=== PATIENT | female | born 1930 | race African-American/Black ===

== ENCOUNTER 2016-11-28 12:44 | Emergency (ER) | payer MEDICARE ==
[~2016-11-28] VITALS: Ht 165.1 cm; Wt 104.8 kg
[~2016-11-28 12:44] MED LIST: ASPI-482 PO; ATOR40TA59 PO; BUDE10.2 IH; CHLO1CAP PO; CHLO25CA9 PO; CITA10TA4 PO; CLOP75TA PO; CRESTOR20 MG PO; DICY20TA3 PO; DOCU-27 PO; DOCU100C5 PO; FURO20TA3 PO; IBUP-1060 PO; MELO-156 PO; MULT1TAB52 PO; POLY17PO5 PO; POLY1GRA MC; POTA20IV IV; POTA20TA12 PO; TRAM50TA PO
[2016-11-28 14:35] LABS: BASO # 0.1 x10^3/uL (0.0-0.2); BASO % 1 % (0-3); EOS % 2 % (0-3); HEMATOCRIT 43.1 % (36.0-47.0); HEMOGLOBIN 13.8 g/dL (12.0-15.5); LYMPH # 1.9 x10^3/uL (1.0-4.8); LYMPH % 23 % (24-48); MEAN CORPUSCULAR HEMOGLOBIN 28 pg (25-35); MEAN CORPUSCULAR HGB CONC 32 g/dL (31-37); MEAN CORPUSCULAR VOLUME 89 fL (79-100); MONO % 7 % (0-9); NEUT % 67 % (31-73); PLATELET COUNT 171 x10^3/uL (140-400); RED BLOOD COUNT 4.85 x10^6/uL (3.50-5.40); RED CELL DISTRIBUTION WIDTH 15.5 % (11.5-14.5)
[2016-11-28 14:50] LABS: CALCIUM 8.9 mg/dL (8.5-10.1); CREATININE 1.2 mg/dL (0.6-1.0); GFR 51.8; POTASSIUM 4.2 mmol/L (3.5-5.1)
--- NOTE | 2016-11-28 14:56 | RAD ---
Portable chest, 11/28/2016: History: Cough Comparison is made to a study from 04/01/2016. The heart size and pulmonary vascularity are normal. The lungs are clear. There is no evidence of pleural fluid. Moderate spurring is present in the spine. IMPRESSION: No acute cardiopulmonary abnormality is detected.
--- NOTE | 2016-11-28 14:58 | EKG ---
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 RI6.01 Unconfirmed report Electronically Signed On 12-05-2016 10:35:12 BLEACH CHLORINATOR by Candelario Cheek
--- NOTE | 2016-11-28 15:04 | PHYS DOC ---
Past Medical History Past Medical History: Anxiety, Arthritis, COPD, High Cholesterol, [place] Additional Past Medical Histor: HOME 02 Past Surgical History: Angioplasty, Hysterectomy, Other Additional Past Surgical Histo: CARDIAC CATH. 4 heart stents Alcohol Use: None Drug Use: None Adult General Chief Complaint Chief Complaint: WEAKNESS/GENERALIZED HPI HPI Patient is a 86 year old female who presents with for evaluation of generalized fatigue and concern of possible pneumonia. States that she has been dealing with cough, runny nose, body aches, and generalized fatigue for the past 2-3 weeks. She has been seen by her primary care doctor and received IM steroid and is currently taking azithromycin for her symptoms. She states she has been able to eat and drink without emesis, has slightly loose stools without lester diarrhea. She denies abdominal pain, chest pain, dyspnea, measured fever, nausea, dysuria. Review of Systems Review of Systems Constitutional: Denies measured fever [] Eyes: Denies change in visual acuity, redness, or eye pain [] HENT: Denies nasal congestion or sore throat [] Respiratory: Denies shortness of breath [] Cardiovascular: No additional information not addressed in HPI [] GI: Denies abdominal pain, nausea, vomiting, bloody stools or diarrhea [] : Denies dysuria or hematuria [] Musculoskeletal: Denies back pain or joint pain [] Integument: Denies rash or skin lesions [] Neurologic: Denies headache, focal weakness or sensory changes [] Endocrine: Denies polyuria or polydipsia [] Allergies Allergies Allergies Coded Allergies Type Severity Reaction Last Updated Verified oxycodone Allergy Intermediate 02/25/15 Yes Physical Exam Physical Exam Constitutional: Well developed, well nourished, no acute distress, non-toxic appearance. [] HENT: Normocephalic, atraumatic, bilateral external ears normal, oropharynx moist, no oral exudates, nose normal. [] Eyes: PERRLA, EOMI, conjunctiva normal, no discharge. [] Neck: Normal range of motion, no tenderness, supple, no stridor. [] Cardiovascular:Heart rate regular rhythm [] Lungs & Thorax: Bilateral breath sounds clear to auscultation [] Abdomen: Bowel sounds normal, soft, no tenderness. [] Skin: Warm, dry, no erythema, no rash. [] Back: No tenderness, no CVA tenderness. [] Extremities: No tenderness, ROM intact, no edema. [] Neurologic: Alert and oriented X 3, normal motor function, normal sensory function, no focal deficits noted. [] Psychologic: Affect normal, judgement normal, mood normal. [] Current Patient Data Vital Signs Vital Signs Date Time Temp Pulse Resp B/P Pulse Ox O2 Delivery O2 Flow Rate FiO2 11/28/16 15:38 63 20 109/63 95 Room Air 11/28/16 13:41 98.0 1 98.0 Lab Values Laboratory Tests Test 11/28/16 14:05 11/28/16 14:47 White Blood Count 8.0x10^3/uL (4.0-11.0) Red Blood Count 4.85x10^6/uL (3.50-5.40) Hemoglobin 13.8g/dL (12.0-15.5) Hematocrit 43.1% (36.0-47.0) Mean Corpuscular Volume 89fL (79-100) Mean Corpuscular Hemoglobin 28pg (25-35) Mean Corpuscular Hemoglobin Concent 32g/dL (31-37) Red Cell Distribution Width 15.5% (11.5-14.5) H Platelet Count 171x10^3/uL (140-400) Neutrophils (%) (Auto) 67% (31-73) Lymphocytes (%) (Auto) 23% (24-48) L Monocytes (%) (Auto) 7% (0-9) Eosinophils (%) (Auto) 2% (0-3) Basophils (%) (Auto) 1% (0-3) Neutrophils # (Auto) 5.4x10^3uL (1.8-7.7) Lymphocytes # (Auto) 1.9x10^3/uL (1.0-4.8) Monocytes # (Auto) 0.6x10^3/uL (0.0-1.1) Eosinophils # (Auto) 0.1x10^3/uL (0.0-0.7) Basophils # (Auto) 0.1x10^3/uL (0.0-0.2) Sodium Level 145mmol/L (136-145) Potassium Level 4.2mmol/L (3.5-5.1) Chloride Level 107mmol/L (98-107) Carbon Dioxide Level 30mmol/L (21-32) Anion Gap 8 (6-14) Blood Urea Nitrogen 24mg/dL (7-20) H Creatinine 1.2mg/dL (0.6-1.0) H Estimated GFR (Cockcroft-Gault) 51.8 Glucose Level 102mg/dL (70-99) H Calcium Level 8.9mg/dL (8.5-10.1) Urine Color K[place] Urine Clarity Clear Urine pH 5.5 Urine Specific [place] >=1.030 Urine Protein Negativemg/dL (NEG-TRACE) Urine Glucose (UA) Negativemg/dL (NEG) Urine Ketones (Stick) Tracemg/dL (NEG) Urine Blood Negative (NEG) Urine Nitrite Negative (NEG) Urine Bilirubin Small (NEG) Urine Urobilinogen Dipstick 0.2mg/dL (0.2 mg/dL) Urine Leukocyte Esterase Small (NEG) Urine RBC 0/HPF (0-2) Urine WBC 1-4/HPF (0-4) Urine Squamous Epithelial Cells Occ/LPF Urine Bacteria 0/HPF (0-FEW) Urine Mucus Slight/LPF Laboratory Tests 11/28/16 14:05 Laboratory Tests 11/28/16 14:05 Microbiology 11/28/16 Urine Culture - Preliminary, Resulted 11/28/16 Urine Culture Result 1 (KALEN) - Preliminary, Resulted EKG EKG EKG as interpreted by me as normal sinus rhythm, rate 64, no ST-T changes, normal intervals, no ectopy Radiology/Procedures Radiology/Procedures Chest xray as interpreted by me with no acute cardiopulmonary disease process Course & Med Decision Making Course & Med Decision Making Pertinent Labs and Imaging studies reviewed. (See chart for details) Workup is unremarkable. She feels better knowing she does not have pneumonia and wants to go home. Return precautions given. She and understand and agree with plan. Dragon Disclaimer Dragon Disclaimer This electronic medical record was generated, in whole or in part, using a voice recognition dictation system. Departure Departure Impression: Primary Impression: Upper respiratory infection Disposition: HOME, SELF-CARE Condition: STABLE Referrals: BACILIO HERNANDEZ MD (PCP) Patient Instructions: Upper Respiratory Infection, Adult, [id number] Additional Instructions: Continue your current medications. Follow-up with your primary care doctor within one week. Return for any concerns. Problem Qualifiers Primary Impression: Upper respiratory infection URI type: unspecified URI Qualified Code: J06.9 - Acute upper respiratory infection, unspecified Fran TRINH MD Nov 28, 2016 15:04
[2016-11-28 15:17] LABS: BILIRUBIN,URINE SMALL (NEG); GLUCOSE,URINE NEGATIVE (NEG); NITRITE,URINE NEGATIVE (NEG); PH,URINE 5.5; PROTEIN,URINE NEGATIVE (NEG-TRACE); UROBILINOGEN,URINE 0.2 mg/dL (0.2 mg/dL)
[2016-11-28 15:38] VITALS: BP 109/63
[2016-11-28 15:52] LABS: BACTERIA,URINE 0 /HPF (0-FEW); RBC,URINE 0 /HPF (0-2); SQUAMOUS EPITHELIAL CELL,UR OCC /LPF
== END 2016-11-28 16:53 | disposition home or self-care (01) ==
LOC: ER 12:44
DX: J06.9 Acute upper respiratory infection, unspecified (principal); F41.9 Anxiety disorder, unspecified; M19.90 Unspecified osteoarthritis, unspecified site; J44.9 Chronic obstructive pulmonary disease, unspecified; E78.00 Pure hypercholesterolemia, unspecified; I25.2 Old myocardial infarction; Z95.5 Presence of coronary angioplasty implant and graft; Z88.5 Allergy status to narcotic agent
CPT/HCPCS: 36415; 71010; 80048; 81001; 85027; 87086; 87186; 93005; 99285-25

== ENCOUNTER 2016-12-09 18:42 | Inpatient (IN) | payer MEDICARE ==
[~2016-12-09] VITALS: Ht 165.1 cm; Wt 105.2 kg
[2016-12-09] MEDS ORDERED: FENTANYL PF 100 MCG/2 ML VIAL. IV PRN (19:15)
--- NOTE | 2016-12-09 19:39 | PHYS DOC ---
Past Medical History Past Medical History: Anxiety, Arthritis, COPD, High Cholesterol, [place] Additional Past Medical Histor: HOME 02 Past Surgical History: Angioplasty, Hysterectomy, Other Additional Past Surgical Histo: CARDIAC CATH. 4 heart stents Alcohol Use: None Drug Use: None Adult General Chief Complaint Chief Complaint: MECHANICAL FALL HPI HPI Patient is a 86 year old female who presents by EMS for severe mid and low back pain that is constant with intermittent spasms with mouth since trip and fall just prior to arrival. She tripped over her home oxygen tubing, falling backwards onto her back, and hitting the right posterior aspect of her head on a door frame. She denies headache, vision changes, dizziness, neck pain, chest pain, dyspnea, abdominal pain, loss of consciousness, numbness, tingling, weakness. She denies hip or extremity pain. Review of Systems Review of Systems Constitutional: Denies fever or chills [] Eyes: Denies change in visual acuity, redness, or eye pain [] HENT: Denies nasal congestion or sore throat [] Respiratory: Denies cough or shortness of breath [] Cardiovascular: No additional information not addressed in HPI [] GI: Denies abdominal pain, nausea, vomiting, bloody stools or diarrhea [] : Denies dysuria or hematuria [] Musculoskeletal: Denies joint pain [] Integument: Denies rash or skin lesions [] Neurologic: Denies headache, focal weakness or sensory changes [] Endocrine: Denies polyuria or polydipsia [] Current Medications Current Medications Current Medications Medications (Trade) Dose Ordered Sig/Mendy Start Time Stop Time Status Last Admin Dose Admin Fentanyl Citrate (Fentanyl 2ml Vial) 25 mcg PRN Q15MIN PRN 12/09/16 19:15 12/10/16 19:14 12/09/16 19:40 25 MCG Allergies Allergies Allergies Coded Allergies Type Severity Reaction Last Updated Verified oxycodone Allergy Intermediate 02/25/15 Yes Physical Exam Physical Exam Constitutional: Well developed, well nourished, no acute distress, non-toxic appearance. [] HENT: Normocephalic, atraumatic, bilateral external ears normal, oropharynx moist, no oral exudates, nose normal. No shook sign, hemotympanum, raccoon eyes [] Eyes: PERRLA, EOMI. [] Neck: Normal range of motion, no tenderness, supple. [] Cardiovascular:Heart rate regular rhythm, no murmur [] Lungs & Thorax: Bilateral breath sounds clear to auscultation [] Abdomen: Bowel sounds normal, soft, no tenderness. [] Skin: Warm, dry, no erythema, no rash. [] Back: No CVA tenderness. Has lower thoracic and lumbar midline spinal tenderness with bilateral paraspinal tenderness, no visual or palpable abnormality [] Extremities: No tenderness, ROM intact, no edema. [] Neurologic: Alert and oriented X 3, normal motor function, normal sensory function, no focal deficits noted. [] Psychologic: Affect normal, judgement normal, mood normal. [] Current Patient Data Vital Signs Vital Signs Date Time Temp Pulse Resp B/P Pulse Ox O2 Delivery O2 Flow Rate FiO2 12/09/16 20:25 66 19 129/70 98 Nasal Cannula 2 12/09/16 18:55 97.8 97.8 Lab Values Laboratory Tests Test 12/09/16 19:35 White Blood Count 12.0x10^3/uL (4.0-11.0) H Red Blood Count 4.66x10^6/uL (3.50-5.40) Hemoglobin 13.3g/dL (12.0-15.5) Hematocrit 41.6% (36.0-47.0) Mean Corpuscular Volume 89fL (79-100) Mean Corpuscular Hemoglobin 29pg (25-35) Mean Corpuscular Hemoglobin Concent 32g/dL (31-37) Red Cell Distribution Width 15.2% (11.5-14.5) H Platelet Count 154x10^3/uL (140-400) Neutrophils (%) (Auto) 72% (31-73) Lymphocytes (%) (Auto) 16% (24-48) L Monocytes (%) (Auto) 9% (0-9) Eosinophils (%) (Auto) 1% (0-3) Basophils (%) (Auto) 1% (0-3) Neutrophils # (Auto) 8.7x10^3uL (1.8-7.7) H Lymphocytes # (Auto) 2.0x10^3/uL (1.0-4.8) Monocytes # (Auto) 1.1x10^3/uL (0.0-1.1) Eosinophils # (Auto) 0.1x10^3/uL (0.0-0.7) Basophils # (Auto) 0.2x10^3/uL (0.0-0.2) Sodium Level 144mmol/L (136-145) Potassium Level 4.2mmol/L (3.5-5.1) Chloride Level 106mmol/L (98-107) Carbon Dioxide Level 29mmol/L (21-32) Anion Gap 9 (6-14) Blood Urea Nitrogen 29mg/dL (7-20) H Creatinine 1.2mg/dL (0.6-1.0) H Estimated GFR (Cockcroft-Gault) 51.8 Glucose Level 127mg/dL (70-99) H Calcium Level 8.7mg/dL (8.5-10.1) Laboratory Tests 12/09/16 19:35 Laboratory Tests 12/09/16 19:35 EKG EKG EKG as interpreted by me as normal sinus rhythm, rate 78, no ST-T changes, normal intervals, no ectopy Radiology/Procedures Radiology/Procedures Head and c-spine CT without contrast IMPRESSION: 1. No acute intracranial process. 2. No acute osseous injury involving the cervical spine. Electronically signed by: Katia Ortega (Dec 09, 2016 20:32:18) Thoracic and lumbar spine without contrast IMPRESSION: 1. No acute fracture or dislocation involving the thoracic or lumbar spine. 2. Incidental note of a 4 mm nodule in the right upper lobe, as well as an irregular subpleural opacity in the right lower lobe. Recommend follow-up CT, per Fleischner criteria. Electronically signed by: Katia Ortega (Dec 09, 2016 21:05:44) Course & Med Decision Making Course & Med Decision Making Pertinent Labs and Imaging studies reviewed. (See chart for details) Laboratory evaluation and imaging are unremarkable for acute process. She still has significant pain and is unable to ambulate under her own power. Will admit for pain control and PT. Discussed case with Dr. Guzman, who will admit. Dragon Disclaimer Dragon Disclaimer This electronic medical record was generated, in whole or in part, using a voice recognition dictation system. Departure Departure Impression: Primary Impression: Back pain Additional Impression: Concussion syndrome Disposition: 09 ADMITTED INPATIENT Condition: STABLE Referrals: BCAILIO HERNANDEZ MD (PCP) Problem Qualifiers Primary Impression: Back pain Back pain location: low back pain Chronicity: acute Back pain laterality: midline Sciatica presence: without sciatica Qualified Code: M54.5 - Low back pain Fran TRINH MD Dec 09, 2016 19:39
[2016-12-09 19:45] LABS: BASO # 0.2 x10^3/uL (0.0-0.2); BASO % 1 % (0-3); EOS % 1 % (0-3); HEMATOCRIT 41.6 % (36.0-47.0); HEMOGLOBIN 13.3 g/dL (12.0-15.5); LYMPH % 16 % (24-48); MEAN CORPUSCULAR HEMOGLOBIN 29 pg (25-35); MEAN CORPUSCULAR HGB CONC 32 g/dL (31-37); MEAN CORPUSCULAR VOLUME 89 fL (79-100); MONO % 9 % (0-9); NEUT % 72 % (31-73); PLATELET COUNT 154 x10^3/uL (140-400); RED BLOOD COUNT 4.66 x10^6/uL (3.50-5.40); RED CELL DISTRIBUTION WIDTH 15.2 % (11.5-14.5)
[2016-12-09 19:58] LABS: CALCIUM 8.7 mg/dL (8.5-10.1); CREATININE 1.2 mg/dL (0.6-1.0); GFR 51.8; POTASSIUM 4.2 mmol/L (3.5-5.1)
--- NOTE | 2016-12-09 20:33 | RAD ---
INDICATION: Tripped and fell hitting back of the head without loss of consciousness. COMPARISON: None TECHNIQUE: Axial, noncontrast CT images obtained through the head and cervical spine. Coronal and sagittal reformats are provided of the cervical spine. One or more of the following individualized dose reduction techniques were utilized for this examination: 1. Automated exposure control; 2. Adjustment of the mA and/or kV according to patient size; 3. Use of iterative reconstruction technique. FINDINGS: No acute intracranial process is identified, specifically no acute blood products, midline shift, mass effect or extra-axial fluid collections. Ventricles and sulci appear appropriate for patient's age. Basilar cisterns are maintained. The visualized paranasal sinuses are clear. Mastoid air cells are clear. No calvarial fracture is present. Overlying scalp is intact. No acute fracture or dislocation is seen within the cervical spine. The C1-C2 articulation is maintained. Normal cervical lordosis and alignment is maintained. The posterior elements are intact. Scattered degenerative changes are present. Visualized soft tissues of the neck demonstrate no acute finding. Calcified nodule seen within the left thyroid lobe. Visualized lung apices are clear. IMPRESSION: 1. No acute intracranial process. 2. No acute osseous injury involving the cervical spine. Electronically signed by: Katia Ortega (Dec 09, 2016 20:32:18)
--- NOTE | 2016-12-09 21:07 | RAD ---
INDICATION: 86-year-old female with severe back pain and muscle spasm following a fall backwards tonight. COMPARISON: None TECHNIQUE: Axial CT images obtained through the thoracic and lumbar spine without the use of intravenous contrast. Coronal and sagittal reformats are provided. One or more of the following individualized dose reduction techniques were utilized for this examination: 1. Automated exposure control; 2. Adjustment of the mA and/or kV according to patient size; 3. Use of iterative reconstruction technique. FINDINGS: No acute fracture or dislocation is seen involving the thoracic spine. Normal thoracic kyphosis and alignment is maintained. Scattered degenerative changes are present, with anterior osteophytes present. No acute fracture or dislocation is seen within the lumbar spine. Normal lumbar lordosis and alignment is maintained. Degenerative changes are present throughout, most prominent at the L4-L5 and L5-S1 levels as well as prominent facet arthropathy. There is minimal anterolisthesis of L4 on L5. Visualized lungs demonstrate no acute finding. A 4 mm nodule is seen within the right upper lobe. An irregular, subpleural patchy opacities present within the right lower lobe, nonspecific. Visualized intrathoracic and intra-abdominal structures demonstrate no acute finding. There is diffuse atherosclerotic calcification of the aorta. IMPRESSION: 1. No acute fracture or dislocation involving the thoracic or lumbar spine. 2. Incidental note of a 4 mm nodule in the right upper lobe, as well as an irregular subpleural opacity in the right lower lobe. Recommend follow-up CT, per Fleischner criteria. Electronically signed by: Katia Ortega (Dec 09, 2016 21:05:44)
--- NOTE | 2016-12-09 21:13 | EKG ---
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
--- NOTE | 2016-12-09 21:18 | ACF ---
Admission Forms Criteria BACK PAIN Clinical Indications for Admission to Inpatient Care (Place 'X' for any and all applicable criteria): Admission is indicated for ANY ONE of the following (1)(2)(3)(4)(5)(6): [X]I. Inpatient admission required rather than observation care (Also use Back Pain: Observation Care as appropriate) because of ANY ONE of the following [ ]a) Severe pain requiring acute inpatient management [ ]b) Immediate inpatient surgery [X]c) Other condition, treatment or monitoring requiring inpatient admission [ ]II. Spine fracture with significant damage or threat of damage to vertebral column or spinal cord [ ]III. Progressive or severe neurologic deficit [ ]IV. Suspected spinal infection (e.g., epidural abscess, vertebral osteomyelitis)(10) [ ]V. Suspected cause requires inpatient treatment (eg, aortic dissection) [ ]. Cauda equina syndrome as indicated by ANY ONE of the following (9): [ ]a) Bowel dysfunction [ ]b) Bladder dysfunction [ ]c) Saddle anesthesia [ ]d) Neurologic abnormality suggesting cauda equina impingement Extended stay beyond goal length of stay may be needed for (3)(25): [ ]a) Spinal cord compression from stenosis, disk, or tumor (8)(9) [ ]b) Traumatic or pathologic vertebral fracture (33) [ ]c) Vertebral infection(10) [ ]d) Severe pain that is difficult to control [ ]e) Older patients(65 years or older) The original [employer] content created by [employer] has been revised. The portions of the content which have been revised are identified through the use of italic text or in bold, and [facility] has neither reviewed nor approved the modified material. All other unmodified content is copyright [employer]. Please see references footnoted in the original [facility] edition 2016 Admission Criteria Met?: Yes EMELI NAVAS Dec 09, 2016 21:18
[2016-12-09] MEDS ORDERED: MORPHINE SULFATE 2 MG/ML DISP.SYRIN. IV PRN (21:30)
[2016-12-09] MEDS ORDERED: ACETAMINOPHEN 325 MG TABLET. PO PRN (21:30)
[2016-12-09] MEDS ORDERED: ONDANSETRON PF 4 MG/2 ML VIAL. IV PRN (21:30)
[2016-12-09 21:35] VITALS: BP 116/59
--- NOTE | 2016-12-09 22:28 | PDOC1 ---
History and Physical Date of Admission Date of Admission DATE: 12/09/16 TIME: 22:18 Identification/Chief Complaint Chief Complaint back pain Source Source: Chart review, Patient History of Present Illness History of Present Illness Ms. Hansen, is a 86 year old female came by ambulance, admitted from ER for severe mid and low back pain. Marked pain with movement, she cannot stand or walk or transfer, with intermittent spasms and constant pain 8/10 She tripped in her slippers over her oxygen cord at home. She takes 2 liters NC for CAD, CHF and DEON she strained her back, severe back pain and struck her head on the floor without loss of consiciousness. her is here with her. no prodrome, felt well today, noted slip, trip and fall without stumble Past Medical History Cardiovascular: CAD, HTN, [place], Hyperlipidemia, Other Pulmonary: COPD, Other CENTRAL NERVOUS SYSTEM: Other GI: GERD Heme/Onc: No pertinent hx Hepatobiliary: No pertinent hx Psych: Anxiety, Panic Musculoskeletal: Osteoarthritis, Other Rheumatologic: No pertinent hx Infectious disease: No pertinent hx Renal/: No pertinent hx Endocrine: No pertinent hx Past Surgical History Past Surgical History: Cataract Removal, Hysterectomy, Other Family History Family History: Diabetes, Hypertension Social History Smoke: No ALCOHOL: none Drugs: None Current Problem List Problem List Problems Medical Problems: (1) Back pain Status: Acute (2) Concussion syndrome Status: Acute Problems: Current Medications Current Medications Current Medications Fentanyl Citrate (Fentanyl 2ml Vial) 25 mcg PRN Q15MIN PRN IV PAIN GREATER THAN 3/10 Last administered on 12/09/16 19:40; Start 12/09/16 at 19:15; Stop at 19:14 Ondansetron HCl (Zofran) 4 mg PRN Q8HRS PRN IV NAUSEA/VOMITING; Start 12/09/16 at 21:30; Stop 12/10/16 at 21:29 Morphine Sulfate 2 mg PRN Q2HR PRN IV PAIN Last administered on 12/09/16 22:01 ; Start 12/09/16 at 21:30; Stop 12/10/16 at 21:29 Acetaminophen (Tylenol) 650 mg PRN Q4HRS PRN PO FEVER; Start 12/09/16 at 21:30 ; Stop 12/10/16 at 21:29 Active Scripts Active Reported Crestor (Rosuvastatin Calcium) 20 Mg Tablet 20 Mg PO HS Gave last night Take tonight Miralax (Polyethylene Glycol 3350) 17 Gm Powd.pack 1 Pkt PO DAILY Take as needed daily for constipation Librax Capsule (Chlordiazepoxide/Clidinium Br) 1 Each Capsule 25 Cap PO DAILY Gave this morning Take tomorrow Tramadol Hcl 50 Mg Tablet 50 Mg PO PRN Q6HRS PRN Take as needed for pain Citalopram Hbr (Citalopram Hydrobromide) 10 Mg Tablet 10 Mg PO DAILY Gave this morning Take tomorrow Dicyclomine Hcl 20 Mg Tablet 20 Mg PO TID Gave this morning Take this afternoon and tonight Docusate Sodium 100 Mg Capsule 100 Mg PO PRN QHS PRN Take as needed for constipation Potassium Chloride 20 Meq Tab.er.prt 20 Meq PO 3X/WEEK Gave dose on MondayApril 01 continue normal schedule Colace (Docusate Sodium) 100 Mg Capsule 1 Cap PO DAILY Aspir 81 (Aspirin) 81 Mg Tablet.dr 81 Mg PO DAILY Gave this morning Take tomorrow Allergies Allergies: Coded Allergies: oxycodone (Verified Allergy, Intermediate, 02/25/15) ROS General: No: Appetite, Chills, Fatigue, Malaise, Night Sweats, Other PSYCHOLOGICAL ROS: No: Anxiety, Behavioral Disorder, Concentration difficultie , Decreased libido, Depression, Disorientation, Hallucinations, Hostility, Irritablity, Memory difficulties, Mood Swings, Obsessive thoughts, Other, Physical abuse, Sexual abuse, Sleep disturbances, Suicidal ideation Eyes: No Blurry vision, No Decreased vision, No Double vision, No Dry eyes, No Excessive tearing, No Eye Pain, No Itchy Eyes, No Loss of vision, No Other, No Photophobia, No Scotomata, No Uses contacts, No Uses glasses HEENT: No: Epistaxis, Heacaches, Hearing change, Nasal congestion, Nasal discharge, Oral lesions, Other, Sinus pain, Sneezing, Snoring, Sore Throat, Tinnitus, Vertigo, Visual Changes, Vocal changes Respiratory: No: Cough, Hemoptysis, Orthopnea, Other, Pleuritic Pain, SOB with excertion, Shortness of breath, Sputum Changes, Stridor, Tachypnea, Wheezing Cardiovascular: No Chest Pain, No Edema, No Lt Headedness, No Orthopnea, No Other, No Palpitations, No Paroxysmal Noc. Dyspnea Gastrointestinal: No Abdominal Pain, No Constipation, No Diarrhea, No Hematochezia, No Melena, No Nausea, No Other, No Vomiting Genitourinary: No , No , No , No , No , No , No , No Discharge, No Dysuria, No Flank Pain, No Frequency, No Hematuria, No Incontinence, No Other, No Pain, No Retention, No Urgency Musculoskeletal: Yes Gait Disturbance, Yes Joint Pain, Yes Joint Stiffness, Yes Muscle Pain, Yes Muscular Weakness, Yes Pain In: (back) Neurological: Yes Gait Disturbance, No Behavorial Changes, No Bowel/Bladder ControlChng, No Confusion, No Dizziness, No Headaches, No Impaired Coord/balance, No Memory Loss, No Numbness/ Tingling, No Other, No Seizures, No Speech Problems, No Tremors, No Visual Changes, No Weakness Skin: No Acne, No Dry Skin, No Eczema, No Hair Changes, No Lumps, No Mole Changes, No Mottling, No Nail Changes, No Other, No Pruritus, No Rash, No Skin Lesion Changes Physical Exam Physical Exam pain to palpation over paraspinous process of lower back low thoracic and lumbar R> L pain with movement, better when lying on her right side General: Alert, Oriented X3, Cooperative, mild distress HEENT: Atraumatic, EOMI Lungs: Normal air movement Heart: no gallops, no murmurs Abdomen: Normal bowel sounds, Soft (obese) Rectal Exam: not examined Extremities: No clubbing, No cyanosis, No edema, Other Skin: No rashes, No significant lesion Neuro: Normal tone, Sensation intact Psych/Mental Status: Mood NL Vitals Vitals Vital Signs Date Time Temp Pulse Resp B/P Pulse Ox O2 Delivery O2 Flow Rate FiO2 12/09/16 22:01 16 96 Nasal Cannula 2.0 12/09/16 20:25 66 129/70 12/09/16 18:55 97.8 97.8 Labs Labs Laboratory Tests Test 12/09/16 19:35 White Blood Count 12.0x10^3/uL (4.0-11.0) Red Blood Count 4.66x10^6/uL (3.50-5.40) Hemoglobin 13.3g/dL (12.0-15.5) Hematocrit 41.6% (36.0-47.0) Mean Corpuscular Volume 89fL (79-100) Mean Corpuscular Hemoglobin 29pg (25-35) Mean Corpuscular Hemoglobin Concent 32g/dL (31-37) Red Cell Distribution Width 15.2% (11.5-14.5) Platelet Count 154x10^3/uL (140-400) Neutrophils (%) (Auto) 72% (31-73) Lymphocytes (%) (Auto) 16% (24-48) Monocytes (%) (Auto) 9% (0-9) Eosinophils (%) (Auto) 1% (0-3) Basophils (%) (Auto) 1% (0-3) Neutrophils # (Auto) 8.7x10^3uL (1.8-7.7) Lymphocytes # (Auto) 2.0x10^3/uL (1.0-4.8) Monocytes # (Auto) 1.1x10^3/uL (0.0-1.1) Eosinophils # (Auto) 0.1x10^3/uL (0.0-0.7) Basophils # (Auto) 0.2x10^3/uL (0.0-0.2) Sodium Level 144mmol/L (136-145) Potassium Level 4.2mmol/L (3.5-5.1) Chloride Level 106mmol/L (98-107) Carbon Dioxide Level 29mmol/L (21-32) Anion Gap 9 (6-14) Blood Urea Nitrogen 29mg/dL (7-20) Creatinine 1.2mg/dL (0.6-1.0) Estimated GFR (Cockcroft-Gault) 51.8 Glucose Level 127mg/dL (70-99) Calcium Level 8.7mg/dL (8.5-10.1) Laboratory Tests Test 12/09/16 19:35 White Blood Count 12.0x10^3/uL (4.0-11.0) Red Blood Count 4.66x10^6/uL (3.50-5.40) Hemoglobin 13.3g/dL (12.0-15.5) Hematocrit 41.6% (36.0-47.0) Mean Corpuscular Volume 89fL (79-100) Mean Corpuscular Hemoglobin 29pg (25-35) Mean Corpuscular Hemoglobin Concent 32g/dL (31-37) Red Cell Distribution Width 15.2% (11.5-14.5) Platelet Count 154x10^3/uL (140-400) Neutrophils (%) (Auto) 72% (31-73) Lymphocytes (%) (Auto) 16% (24-48) Monocytes (%) (Auto) 9% (0-9) Eosinophils (%) (Auto) 1% (0-3) Basophils (%) (Auto) 1% (0-3) Neutrophils # (Auto) 8.7x10^3uL (1.8-7.7) Lymphocytes # (Auto) 2.0x10^3/uL (1.0-4.8) Monocytes # (Auto) 1.1x10^3/uL (0.0-1.1) Eosinophils # (Auto) 0.1x10^3/uL (0.0-0.7) Basophils # (Auto) 0.2x10^3/uL (0.0-0.2) Sodium Level 144mmol/L (136-145) Potassium Level 4.2mmol/L (3.5-5.1) Chloride Level 106mmol/L (98-107) Carbon Dioxide Level 29mmol/L (21-32) Anion Gap 9 (6-14) Blood Urea Nitrogen 29mg/dL (7-20) Creatinine 1.2mg/dL (0.6-1.0) Estimated GFR (Cockcroft-Gault) 51.8 Glucose Level 127mg/dL (70-99) Calcium Level 8.7mg/dL (8.5-10.1) VTE Prophylaxis Ordered VTE Prophylaxis Devices: Yes VTE Pharmacological Prophylaxi: No Assessment/Plan Assessment/Plan ACute back pain, unable to transfer or walk flexeril, percocet, IV morphine, Ice and lidocaine patch ordered minimal concussion, no symptoms of syndrome consult Physiatry to see in AM, Dr. Frye Dm2 CAD, follows with Dr. Jamal Dowd at [facility], s/p [place] X5 DEON, has seen Dr. Lee, wears 2 liters at baseline, she reports no intrinsic lung disease obesity BMI 38 CKD3 admit YUDY ENCARNACION MD Dec 09, 2016 22:28
[2016-12-09] MEDS ORDERED: MORPHINE SULFATE 4 MG/ML DISP.SYRIN. IV PRN (22:30)
[2016-12-09] MEDS ORDERED: DOCUSATE SODIUM 100 MG CAPSULE PO PRN (22:30)
[2016-12-09] MEDS ORDERED: OXYCODONE/APAP 5/325 TABLET. PO PRN (22:30)
[2016-12-09 23:00] VITALS: BP 97/50
[2016-12-09] MEDS: LIDOCAINE (700MG/PATCH) PATCH. TD SCH (23:55)
[2016-12-10 03:00] VITALS: BP 116/64
[2016-12-10 07:00] VITALS: BP 140/77
[2016-12-10] MEDS: LIDOCAINE (700MG/PATCH) PATCH. TD SCH (08:12)
[2016-12-10] MEDS: DOCUSATE SODIUM 100 MG CAPSULE PO SCH (08:12)
[2016-12-10] MEDS: DICYCLOMINE HCL 10 MG CAPSULE PO SCH ×3 (08:12→21:00)
[2016-12-10] MEDS: ASPIRIN ENTERIC COATED 81 MG TABLET.DR. PO SCH (08:13)
[2016-12-10] MEDS: CITALOPRAM 10 MG TABLET. PO SCH (08:13)
[2016-12-10] MEDS: POLYETHYLENE GLYCOL 3350 17 GM PACKET. PO SCH (08:17)
[2016-12-10] MEDS: CYCLOBENZAPRINE 10 MG TABLET. PO PRN ×2 (08:21→21:05)
[2016-12-10] MEDS: CHLORDIAZEPOXIDE/CLIDINIUM 5MG/2.5MG CAPSULE. PO SCH (10:54)
[2016-12-10 11:00] VITALS: BP 112/66
[2016-12-10] MEDS ORDERED: FLUCONAZOLE 100 MG TABLET. PO ONE (12:00)
[2016-12-10] MEDS ORDERED: methylPREDNISolone ACETATE 40 MG/ML VIAL. IM ONE ×2 (12:00)
[2016-12-10] MEDS ORDERED: BUPIVACAINE MPF 0.25% 10 ML VIAL. IJ ONE (12:00)
--- NOTE | 2016-12-10 14:37 | PDOC ---
PROGRESS NOTES Chief Complaint Chief Complaint ACute on chronic back pain post fall, unable to transfer or walk minimal concussion, no symptoms of syndrome Dm2 h/o CAD, follows with Dr. Jamal Dowd at [facility], s/p [place] X5 DEON 2 liters at baseline, she reports no intrinsic lung disease obesity BMI 38 CKD3 vaginitis with itchness no discharge right lung 4mm nodule on CT plan: 1. fu with dr. bolton, lumbar MRI pending 2. labs tmr 3. pain control ptot 4. fluconazole x1 pulm consult for lung right lobe 4mm nodule, fu likely History of Present Illness History of Present Illness STILL lower back pain with tenderness right leg mild weaker 4/5, numbness vaginal itchy, no discharge, 1st time, used some topic before Vitals Vitals Vital Signs Date Time Temp Pulse Resp B/P Pulse Ox O2 Delivery O2 Flow Rate FiO2 12/10/16 11:00 97.0 66 20 112/66 98 Nasal Cannula 2.0 97.0 Physical Exam General: Alert, Oriented X3, Cooperative, mild distress Heart: Regular rate, Normal S1 Abdomen: Normal bowel sounds, Soft (obese) Extremities: No clubbing, No cyanosis, No edema, Other Skin: No rashes, No significant lesion Labs LABS Laboratory Tests Test 12/09/16 19:35 White Blood Count 12.0x10^3/uL (4.0-11.0) Red Blood Count 4.66x10^6/uL (3.50-5.40) Hemoglobin 13.3g/dL (12.0-15.5) Hematocrit 41.6% (36.0-47.0) Mean Corpuscular Volume 89fL (79-100) Mean Corpuscular Hemoglobin 29pg (25-35) Mean Corpuscular Hemoglobin Concent 32g/dL (31-37) Red Cell Distribution Width 15.2% (11.5-14.5) Platelet Count 154x10^3/uL (140-400) Neutrophils (%) (Auto) 72% (31-73) Lymphocytes (%) (Auto) 16% (24-48) Monocytes (%) (Auto) 9% (0-9) Eosinophils (%) (Auto) 1% (0-3) Basophils (%) (Auto) 1% (0-3) Neutrophils # (Auto) 8.7x10^3uL (1.8-7.7) Lymphocytes # (Auto) 2.0x10^3/uL (1.0-4.8) Monocytes # (Auto) 1.1x10^3/uL (0.0-1.1) Eosinophils # (Auto) 0.1x10^3/uL (0.0-0.7) Basophils # (Auto) 0.2x10^3/uL (0.0-0.2) Sodium Level 144mmol/L (136-145) Potassium Level 4.2mmol/L (3.5-5.1) Chloride Level 106mmol/L (98-107) Carbon Dioxide Level 29mmol/L (21-32) Anion Gap 9 (6-14) Blood Urea Nitrogen 29mg/dL (7-20) Creatinine 1.2mg/dL (0.6-1.0) Estimated GFR (Cockcroft-Gault) 51.8 Glucose Level 127mg/dL (70-99) Calcium Level 8.7mg/dL (8.5-10.1) Review of Systems Review of Systems no fever, chills, sob or chest pain Assessment and Plan Assessmemt and Plan Problems Medical Problems: (1) Back pain Status: Acute (2) Concussion syndrome Status: Acute Problems: Comment Review of Relevant I have reviewed the following items sahil (where applicable) has been applied. Labs Laboratory Tests Test 12/09/16 19:35 White Blood Count 12.0x10^3/uL (4.0-11.0) Red Blood Count 4.66x10^6/uL (3.50-5.40) Hemoglobin 13.3g/dL (12.0-15.5) Hematocrit 41.6% (36.0-47.0) Mean Corpuscular Volume 89fL (79-100) Mean Corpuscular Hemoglobin 29pg (25-35) Mean Corpuscular Hemoglobin Concent 32g/dL (31-37) Red Cell Distribution Width 15.2% (11.5-14.5) Platelet Count 154x10^3/uL (140-400) Neutrophils (%) (Auto) 72% (31-73) Lymphocytes (%) (Auto) 16% (24-48) Monocytes (%) (Auto) 9% (0-9) Eosinophils (%) (Auto) 1% (0-3) Basophils (%) (Auto) 1% (0-3) Neutrophils # (Auto) 8.7x10^3uL (1.8-7.7) Lymphocytes # (Auto) 2.0x10^3/uL (1.0-4.8) Monocytes # (Auto) 1.1x10^3/uL (0.0-1.1) Eosinophils # (Auto) 0.1x10^3/uL (0.0-0.7) Basophils # (Auto) 0.2x10^3/uL (0.0-0.2) Sodium Level 144mmol/L (136-145) Potassium Level 4.2mmol/L (3.5-5.1) Chloride Level 106mmol/L (98-107) Carbon Dioxide Level 29mmol/L (21-32) Anion Gap 9 (6-14) Blood Urea Nitrogen 29mg/dL (7-20) Creatinine 1.2mg/dL (0.6-1.0) Estimated GFR (Cockcroft-Gault) 51.8 Glucose Level 127mg/dL (70-99) Calcium Level 8.7mg/dL (8.5-10.1) Laboratory Tests Test 12/09/16 19:35 White Blood Count 12.0x10^3/uL (4.0-11.0) Red Blood Count 4.66x10^6/uL (3.50-5.40) Hemoglobin 13.3g/dL (12.0-15.5) Hematocrit 41.6% (36.0-47.0) Mean Corpuscular Volume 89fL (79-100) Mean Corpuscular Hemoglobin 29pg (25-35) Mean Corpuscular Hemoglobin Concent 32g/dL (31-37) Red Cell Distribution Width 15.2% (11.5-14.5) Platelet Count 154x10^3/uL (140-400) Neutrophils (%) (Auto) 72% (31-73) Lymphocytes (%) (Auto) 16% (24-48) Monocytes (%) (Auto) 9% (0-9) Eosinophils (%) (Auto) 1% (0-3) Basophils (%) (Auto) 1% (0-3) Neutrophils # (Auto) 8.7x10^3uL (1.8-7.7) Lymphocytes # (Auto) 2.0x10^3/uL (1.0-4.8) Monocytes # (Auto) 1.1x10^3/uL (0.0-1.1) Eosinophils # (Auto) 0.1x10^3/uL (0.0-0.7) Basophils # (Auto) 0.2x10^3/uL (0.0-0.2) Sodium Level 144mmol/L (136-145) Potassium Level 4.2mmol/L (3.5-5.1) Chloride Level 106mmol/L (98-107) Carbon Dioxide Level 29mmol/L (21-32) Anion Gap 9 (6-14) Blood Urea Nitrogen 29mg/dL (7-20) Creatinine 1.2mg/dL (0.6-1.0) Estimated GFR (Cockcroft-Gault) 51.8 Glucose Level 127mg/dL (70-99) Calcium Level 8.7mg/dL (8.5-10.1) Medications Current Medications Fentanyl Citrate (Fentanyl 2ml Vial) 25 mcg PRN Q15MIN PRN IV PAIN GREATER THAN 3/10 Last administered on 12/09/16 19:40; Start 12/09/16 at 19:15; Stop at 19:14 Ondansetron HCl (Zofran) 4 mg PRN Q8HRS PRN IV NAUSEA/VOMITING; Start 12/09/16 at 21:30; Stop 12/10/16 at 21:29 Morphine Sulfate 2 mg PRN Q2HR PRN IV PAIN Last administered on 12/09/16 22:01 ; Start 12/09/16 at 21:30; Stop 12/09/16 at 22:22; Status DC Acetaminophen (Tylenol) 650 mg PRN Q4HRS PRN PO FEVER; Start 12/09/16 at 21:30 ; Stop 12/10/16 at 21:29 Aspirin (Ecotrin) 81 mg DAILY PO Last administered on 12/10/16 08:13; Start at 09:00 Chlordiazepoxide/ Clidinium (Librax) 1 cap DAILY PO Last administered on 10:54; Start 12/10/16 at 09:00 Citalopram Hydrobromide (Celexa) 10 mg DAILY PO Last administered on 12/10/16 08:13; Start 12/10/16 at 09:00 Docusate Sodium (Colace) 100 mg PRN QHS PRN PO CONSTIPATION; Start 12/09/16 at 22:30 Docusate Sodium (Colace) 100 mg DAILY PO Last administered on 12/10/16 08:12; Start 12/10/16 at 09:00 Polyethylene Glycol (miraLAX PACKET) 17 gm DAILY PO Last administered on 08:17; Start 12/10/16 at 09:00 Potassium Chloride (Klor-Con) 20 meq 3X/WEEK PO ; Start 12/12/16 at 09:00 Dicyclomine HCl (Bentyl) 20 mg TID PO Last administered on 12/10/16 08:12; Start 12/10/16 at 09:00 Atorvastatin Calcium (Lipitor) 80 mg HS PO FOR CHOLESTEROL; Start 12/10/16 at 21 :00 Morphine Sulfate 4 mg PRN Q2HR PRN IV PAIN Last administered on 12/10/16 03:54 ; Start 12/09/16 at 22:30 Oxycodone/ Acetaminophen (Percocet 5/325) 1 tab PRN Q4HRS PRN PO PAIN Last administered on 12/10/16 08:16; Start 12/09/16 at 22:30; Stop 12/10/16 at 13:09 ; Status DC Lidocaine (Lidoderm) 1 patch DAILY TD Last administered on 12/10/16 08:12; Start 12/09/16 at 22:45 Cyclobenzaprine HCl (Flexeril) 10 mg PRN Q6HRS PRN PO MUSCLE SPASMS Last administered on 12/10/16 08:21; Start 12/09/16 at 22:30 Fluconazole (Diflucan) 150 mg 1X ONCE PO Last administered on 12/10/16 12:11 ; Start 12/10/16 at 12:00; Stop 12/10/16 at 12:01; Status DC Methylprednisolone Acetate (Depo-Medrol 40mg Vial) 40 mg 1X ONCE IM Last administered on 12/10/16 12:12; Start 12/10/16 at 12:00; Stop 12/10/16 at 12:01 ; Status DC Methylprednisolone Acetate (Depo-Medrol 40mg Vial) 40 mg 1X ONCE IM ; Start 08/18 at 12:00; Stop 12/10/16 at 12:01; Status DC Bupivacaine HCl (Sensorcaine-Mpf 0.25%) 10 ml 1X ONCE IJ Last administered on 12/10/16t 12:14; Start 12/10/16 at 12:00; Stop 12/10/16 at 12:01; Status DC Acetaminophen/ Hydrocodone Bitart (Lortab 10/325) 1 tab PRN Q6HRS PRN PO PAIN; Start 12/10/16 at 11:30 Active Scripts Active Reported Crestor (Rosuvastatin Calcium) 20 Mg Tablet 20 Mg PO HS Gave last night Take tonight Miralax (Polyethylene Glycol 3350) 17 Gm Powd.pack 1 Pkt PO DAILY Take as needed daily for constipation Librax Capsule (Chlordiazepoxide/Clidinium Br) 1 Each Capsule 25 Cap PO DAILY Gave this morning Take tomorrow Tramadol Hcl 50 Mg Tablet 50 Mg PO PRN Q6HRS PRN Take as needed for pain Citalopram Hbr (Citalopram Hydrobromide) 10 Mg Tablet 10 Mg PO DAILY Gave this morning Take tomorrow Dicyclomine Hcl 20 Mg Tablet 20 Mg PO TID Gave this morning Take this afternoon and tonight Docusate Sodium 100 Mg Capsule 100 Mg PO PRN QHS PRN Take as needed for constipation Potassium Chloride 20 Meq Tab.er.prt 20 Meq PO 3X/WEEK Gave dose on MondayApril 01 continue normal schedule Colace (Docusate Sodium) 100 Mg Capsule 1 Cap PO DAILY Aspir 81 (Aspirin) 81 Mg Tablet.dr 81 Mg PO DAILY Gave this morning Take tomorrow Vitals/I & O Vital Sign - Last 24 Hours 12/09/16 12/09/16 12/09/16 12/09/16 18:55 19:16 19:40 19:46 Temp 97.8 97.8 Pulse 87 76 72 Resp 20 16 14 B/P 138/75 115/60 125/58 Pulse Ox 98 97 99 94 O2 Delivery Nasal Cannula Nasal Cannula Room Air Nasal Cannula O2 Flow Rate 2 2 2 12/09/16 12/09/16 12/09/16 12/09/16 20:25 21:35 22:00 22:01 Temp 97.7 97.7 Pulse 66 70 Resp 19 20 16 B/P 129/70 116/59 Pulse Ox 98 97 96 O2 Delivery Nasal Cannula Nasal Cannula Nasal Cannula O2 Flow Rate 2 2.0 2.0 12/09/16 12/10/16 12/10/16 12/10/16 23:00 03:00 03:54 07:00 Temp 98.5 97.5 97.9 98.5 97.5 97.9 Pulse 63 69 80 Resp 18 18 18 24 B/P 97/50 116/64 140/77 Pulse Ox 97 95 100 O2 Delivery Nasal Cannula Nasal Cannula O2 Flow Rate 2.0 2.0 12/10/16 12/10/16 08:00 11:00 Temp 97.0 97.0 Pulse 66 Resp 20 B/P 112/66 Pulse Ox 98 O2 Delivery Nasal Cannula Nasal Cannula O2 Flow Rate 2.0 2.0 Intake and Output 12/09/16 12/09/16 12/10/16 15:00 23:00 07:00 Intake Total 120 ml 100 ml Output Total 250 ml 200 ml Balance -130 ml -100 ml BABAK WILLIAMSON MD Dec 10, 2016 14:37
[2016-12-10] MEDS ORDERED: ACETAMINOPHEN 325 MG TABLET. PO PRN (14:45)
[2016-12-10] MEDS ORDERED: ONDANSETRON PF 4 MG/2 ML VIAL. IV PRN (14:45)
--- NOTE | 2016-12-10 14:45 | RAD ---
Exam performed: MRI lumbar spine without contrast. History: Low back pain, spasms and back stiffness for 3 weeks status post fall. Date of service: 12/10/16. Comparison: None available Technique: Real-time grayscale imaging of the routine multiplanar and multiple sequence imaging of the lumbar spine is performed and images are obtained. Findings: The bulb of the study, the last separate vertebral body is designated L5. Using this number scheme, there is grade 1 anterolisthesis of L4 over L5, the remainder alignment appears preserved. The vertebral body heights are maintained. Narrowing and desiccation of several intervertebral disc levels. The conus medullaris tapers normally and terminates at L1 level. No abnormal vertebral body marrow signal abnormality is seen. Findings arising imaging at base intervertebral disc levels are as follows. L1/2 is normal L2/3 demonstrates broad-based posterior disc bulge. Mild bilateral facet hypertrophic changes and ligamentum flavum hypertrophy is seen. There is no central canal stenosis. Mild right neural foramen narrowing is identified. L3/4 demonstrates a broad-based posterior disc bulge and bilateral facet hypertrophic changes. There is mild central canal stenosis. Mild bilateral neural foramen narrowing is seen. L4/5 demonstrates a broad-based posterior disc bulge. Right greater than left facet hypertrophic changes are noted. There is moderate central canal stenosis. Moderate to severe right neural foramen stenosis is seen. L5/S1 is normal. The visualized retroperitoneal structures demonstrate no definite abnormality. The aorta is of normal caliber. Visualized kidneys are normal. Impression: Grade 1 anterolisthesis of L4 over L5 with multilevel disc degenerative changes as outlined above. Please see discussion above
[2016-12-10 15:00] VITALS: BP 112/53
[2016-12-10 19:00] VITALS: BP 137/76
[2016-12-10] MEDS: HYDROCODONE/APAP 10/325 TABLET. PO PRN (19:58)
[2016-12-10] MEDS: ATORVASTATIN CALCIUM 40 MG TABLET. PO SCH (21:00)
[2016-12-10 22:33] VITALS: BP 83/41
--- NOTE | 2016-12-10 23:26 | CONS ---
DATE OF CONSULTATION: 12/10/2016 ATTENDING PHYSICIAN: Dr. Guzman. The patient was seen at the request of Dr. Guzman for rehab evaluation about her back pain. HISTORY OF PRESENT ILLNESS: This is an 86-year-old female admitted through the Emergency Room with severe mid and lower back pain, difficulty to stand and walk or transfer with intermittent muscle spasm and constant pain on a scale of 0-10 at 8 after she tripped on her slippers over oxygen cord at home. The patient with chronic lower back pain, being followed by Dr. Price, her family physician and she uses BiPAP at nighttime and oxygen by nasal cannula while she is awake. Past medical history also includes coronary artery disease, congestive heart failure, and obstructive sleep apnea. The patient also admits pain in her knees for which she receives cortisone injections. The patient had her knees injected about 2 months ago last time and she denies any significant pain in her knees at present time. PAST MEDICAL HISTORY: Also includes hyperlipidemia, previous myocardial infarction, chronic obstructive pulmonary disease, gastroesophageal reflux disease, anxiety, panic episodes. ALLERGIES: SHE IS KNOWN ALLERGIC TO OXYCODONE, is not real allergy, look like she received in the Emergency Room that made her somewhat confused. MEDICATIONS: She usually takes ibuprofen 800 mg on an as needed basis for pain maybe once a day. FAMILY HISTORY: Diabetes mellitus and hypertension. The patient is status post cataract surgery and hysterectomy. The patient lives alone, had no stairs for her to manage. She usually uses a walker to get around, sometimes she uses cane. PHYSICAL EXAMINATION: Today revealed an elderly female, she is alert, oriented to time, place, person and circumstance and follows commands appropriately. She had painful limited movements of thoracolumbar spine with tenderness to palpation over thoracic and lumbar paraspinal muscles extending over to sacroiliac joint area, right side more than left side, and straight leg raising test is negative bilaterally. She had 5/5 grade muscle strength in her extremities, tenderness to palpation over medial aspect of her right knee crepitus on range of motion of both knee joints. She is protecting her knee on the right side to some extent. The patient had slightly decreased touch and pinprick sensation over right median nerve distribution in the hand and also over right lower extremity. Deep tendon reflexes are 1+ and symmetrical. The patient had pain free range of motion of both hip joints. She had mild degree of muscle atrophy involving thenar eminence muscles in both hands and positive Tinel sign over right median nerve at the wrist and also evidence of degenerative joint disease of both thumbs at carpometacarpal joints bilaterally. She requires some help with bed mobility and transfers. Once up, she can walk slowly with limping on her right foot to some extent using a roller or walker. ASSESSMENT: An elderly female with chronic lower back pain from degenerative disk disease and degenerative joint disease of lumbar vertebrae with right lumbar radiculitis with recent fall with superimposed thoracic and lumbar sprain, also degenerative joint disease of both knees with some pain, right knee, with associated tendinitis right knee and degenerative changes of both thumbs carpometacarpal joints with associated probable carpal tunnel syndrome on the right side. The patient with obesity, hypertension, hyperlipidemia, coronary artery disease, congestive heart failure, previous myocardial infarction, chronic obstructive pulmonary disease and obstructive sleep apnea, on BiPAP or CPAP at nighttime and also uses oxygen by nasal cannula while she is awake. RECOMMENDATIONS: At her request, I have injected painful right sacroiliac joint using Marcaine and Depo-Medrol solution under aseptic skin technique after skin prep using alcohol swab and she tolerated the procedure satisfactorily without any side effects to try her with hydrocodone for pain and to get her lumbar corset and also obtain MRI scan of her lumbar vertebrae to make sure she does not have any significant lumbar spinal stenosis. Dr. Guzman, I appreciate asking me to participate in care of this interesting patient. I will be glad to follow her with you as needed for her rehabilitation. IMAN MICHAELS MD DR: RONDA/raimundo JOB#: [id number] / [id number] BACILIO Roca MD
[2016-12-11 03:00] VITALS: BP 106/51
[2016-12-11 05:43] LABS: BASO # 0.1 x10^3/uL (0.0-0.2); BASO % 1 % (0-3); EOS % 1 % (0-3); HEMATOCRIT 43.5 % (36.0-47.0); HEMOGLOBIN 13.8 g/dL (12.0-15.5); LYMPH % 18 % (24-48); MEAN CORPUSCULAR HEMOGLOBIN 28 pg (25-35); MEAN CORPUSCULAR HGB CONC 32 g/dL (31-37); MEAN CORPUSCULAR VOLUME 90 fL (79-100); MONO % 6 % (0-9); NEUT % 74 % (31-73); PLATELET COUNT 154 x10^3/uL (140-400); RED BLOOD COUNT 4.86 x10^6/uL (3.50-5.40); RED CELL DISTRIBUTION WIDTH 15.3 % (11.5-14.5); WHITE BLOOD COUNT 11.1 x10^3/uL (4.0-11.0)
[2016-12-11 06:02] LABS: CALCIUM 9.1 mg/dL (8.5-10.1); CREATININE 1.1 mg/dL (0.6-1.0); GFR 57.3; POTASSIUM 4.9 mmol/L (3.5-5.1)
[2016-12-11 07:00] VITALS: BP 134/56
[2016-12-11] MEDS: DICYCLOMINE HCL 10 MG CAPSULE PO SCH ×3 (08:16→21:20)
[2016-12-11] MEDS: CHLORDIAZEPOXIDE/CLIDINIUM 5MG/2.5MG CAPSULE. PO SCH (08:16)
[2016-12-11] MEDS: DOCUSATE SODIUM 100 MG CAPSULE PO SCH (08:16)
[2016-12-11] MEDS: CITALOPRAM 10 MG TABLET. PO SCH (08:16)
[2016-12-11] MEDS: POLYETHYLENE GLYCOL 3350 17 GM PACKET. PO SCH (08:16)
[2016-12-11] MEDS: ASPIRIN ENTERIC COATED 81 MG TABLET.DR. PO SCH (08:16)
[2016-12-11] MEDS: LIDOCAINE (700MG/PATCH) PATCH. TD SCH (08:17)
--- NOTE | 2016-12-11 09:33 | PDOC ---
Provider Note Provider Note dictated 4 mm lung nodule. 50 lb wt loss in one year. will need full ct chest,abd/pelvis f/u nodule in 4-6 months LUIS FERNANDO SWAIN MD Dec 11, 2016 09:33
--- NOTE | 2016-12-11 10:20 | CONS ---
DATE OF CONSULTATION: ATTENDING PHYSICIAN: Dr. Melita Guzman. REASON FOR CONSULTATION: Lung nodule. HISTORY OF PRESENT ILLNESS: The patient is an 86-year-old female who has no significant history of tobacco use. She is on home oxygen 24 hours 2 liters. She presented to the hospital with complaint of mid and low back pain. The patient underwent imaging study and thoracic spine CT was performed which showed an incidental finding of a 4-mm nodule in the right upper lobe. There was also subpleural irregular opacity in the right lower lobe. The patient has no significant history of tobacco use. However, she does admit to weight loss of about 50 pounds in the past 1 year. She recalls her last mammogram was normal. No GI symptoms. Consultation was requested for further evaluation and management. PAST MEDICAL HISTORY: History of coronary artery disease, hypertension, [place], hyperlipidemia, chronic respiratory failure, osteoarthritis, and obesity. PAST SURGICAL HISTORY: Cataract removal and hysterectomy. FAMILY HISTORY: Diabetes and hypertension. SOCIAL HISTORY: Nonsmoker. ALLERGIES: OXYCODONE. MEDICATIONS: Reviewed as listed in the MRAD. REVIEW OF SYSTEMS: Twelve-point system obtained, pertinent positives discussed in history of present illness, otherwise noncontributory. All systems that were negative were reviewed as well. PHYSICAL EXAMINATION: VITAL SIGNS: Stable, afebrile, and pulse oximetry 98% on room air. NECK: Supple. LUNGS: Clear. CARDIOVASCULAR: Regular rate and rhythm. ABDOMEN: Soft and obese. EXTREMITIES: With no pitting edema. LABORATORY DATA: Reviewed. White cell count 11.1, hemoglobin 13.8, and platelets are 154. BUN is 25, creatinine 1.1. IMPRESSION: 1. A 4-mm nodule seen in the right upper lobe and a tiny subpleural irregular opacity in the right lower lobe. This was seen on a thoracic spine CT. She has no tobacco history and as such, has very minimal risk of lung cancer. However, she has approximately 50-pound weight loss in the past one year, and a metastatic workup would be reasonable. I would obtain a full CT chest, abdomen, and pelvis. 2. Chronic respiratory failure, on home oxygen at 2 liters, being followed by my partner, Dr. Lee. 3. No significant history of tobacco use. RECOMMENDATIONS: 1. Obtain noncontrast CT chest, abdomen, and pelvis. 2. If there is no evidence of any metastatic disease, then she should have a followup CT chest in 4 to 6 months to make sure that the nodule is not increased in size. The patient is to follow with Dr. Lee in the office around that time. 3. Management of back pain per PCP. LUIS FERNANDO SWAIN MD DR: MO/raimundo JOB#: [id number] / [id number] SHIRLEY
[2016-12-11 11:00] VITALS: BP 119/57
[2016-12-11] MEDS ORDERED: IOHEXOL 240 MG/ML 50ML VIAL. PO ONE (11:15)
--- NOTE | 2016-12-11 13:30 | RAD ---
EXAM: CT OF THE CHEST, ABDOMEN AND PELVIS WITHOUT INTRAVENOUS CONTRAST. HISTORY: Weight loss. TECHNIQUE: Computed tomography of the chest, abdomen and pelvis was performed without intravenous contrast. COMPARISON: 09/30/2015. FINDINGS: Bone windows reveal no suspicious lesions. The right thyroid lobe is subtotally atrophic or surgically absent. There is rim calcified nodule in the left lobe of measuring 11 mm. This appears stable since 2015 and is likely benign. There are no pathologically enlarged mediastinal or axillary lymph nodes. Calcified mediastinal lymph nodes are likely secondary to old granulomatous disease. There is no pleural or pericardial effusion. The heart is not enlarged. There is a normal variant common origin of the left common carotid and brachiocephalic arteries. There are atherosclerotic calcifications of the coronary arteries. The main pulmonary artery measures 3.2 cm. There is a small hiatal hernia. Some of the previously noted pulmonary nodules posteriorly are smaller or have resolved. Most now appear to be scarlike represent small nodular infiltrates that are post inflammatory. The largest currently is adjacent to the pleura in the right lower lobe on image 30, measuring 7 mm. This was previously a larger region of subpleural consolidation. Interstitial opacities in the right costophrenic angle is stable to improved. There are multiple gallstones within the gallbladder. There is no pericholecystic inflammation. There are calcified granulomas in the liver and spleen. The adrenal glands, kidneys and pancreas are unremarkable without contrast. The uterus is surgically absent. There are changes of pelvic for relaxation. Left and sigmoid diverticulosis are moderate. The appendix is not inflamed. A small bowel hernia contains only fat. There is no obstruction. IMPRESSION: 1. No evidence of malignancy or clear cause for weight loss. 2. Scattered pulmonary nodules are mostly decreased since 09/30/2015 and are likely postinflammatory scarring. The largest measures 7 mm in the right lower lobe. This could be followed in 6-12 months if there is further concern. 3. Small hiatal hernia. 4. Cholelithiasis. 5. Small umbilical hernia containing only fat. 6. Pelvic floor relaxation. *One or more of the following individualized dose reduction techniques were utilized for this examination: 1. Automated exposure control. 2. Adjustment of the mA and/or kV according to patient size. 3. Use of iterative reconstruction technique.
--- NOTE | 2016-12-11 14:02 | PDOC ---
PROGRESS NOTES Chief Complaint Chief Complaint ACute on chronic back pain post fall, unable to transfer or walk minimal concussion, no symptoms of syndrome Dm2 h/o CAD, follows with Dr. Jamal Dowd at [facility], s/p AK X5 DEON 2 liters at baseline, she reports no intrinsic lung disease obesity BMI 38 CKD3 vaginitis with itchness no discharge right lung 7mm nodule on CT , fu as outpt plan: 1. fu with dr. bolton, lumbar MRI done 2. labs tmr 3. pain control ptot 4. fluconazole x1 pulm consult for lung right lobe 4mm nodule, fu as outpt dc tmr History of Present Illness History of Present Illness STILL lower back pain with tenderness right leg mild weaker 4/5, numbness vaginal itchy, no discharge, 1st time, used some topic before, resolved for now with 1 pill fluco Vitals Vitals Vital Signs Date Time Temp Pulse Resp B/P Pulse Ox O2 Delivery O2 Flow Rate FiO2 12/11/16 11:00 97.7 67 20 119/57 97 Room Air 97.7 12/11/16 08:00 1.0 Physical Exam General: Alert, Oriented X3, Cooperative, mild distress Heart: Regular rate, Normal S1 Abdomen: Normal bowel sounds, Soft (obese) Extremities: No clubbing, No cyanosis, No edema, Other Skin: No rashes, No significant lesion Labs LABS Laboratory Tests Test 12/11/16 05:10 White Blood Count 11.1x10^3/uL (4.0-11.0) Red Blood Count 4.86x10^6/uL (3.50-5.40) Hemoglobin 13.8g/dL (12.0-15.5) Hematocrit 43.5% (36.0-47.0) Mean Corpuscular Volume 90fL (79-100) Mean Corpuscular Hemoglobin 28pg (25-35) Mean Corpuscular Hemoglobin Concent 32g/dL (31-37) Red Cell Distribution Width 15.3% (11.5-14.5) Platelet Count 154x10^3/uL (140-400) Neutrophils (%) (Auto) 74% (31-73) Lymphocytes (%) (Auto) 18% (24-48) Monocytes (%) (Auto) 6% (0-9) Eosinophils (%) (Auto) 1% (0-3) Basophils (%) (Auto) 1% (0-3) Neutrophils # (Auto) 8.2x10^3uL (1.8-7.7) Lymphocytes # (Auto) 2.0x10^3/uL (1.0-4.8) Monocytes # (Auto) 0.7x10^3/uL (0.0-1.1) Eosinophils # (Auto) 0.1x10^3/uL (0.0-0.7) Basophils # (Auto) 0.1x10^3/uL (0.0-0.2) Sodium Level 141mmol/L (136-145) Potassium Level 4.9mmol/L (3.5-5.1) Chloride Level 104mmol/L (98-107) Carbon Dioxide Level 31mmol/L (21-32) Anion Gap 6 (6-14) Blood Urea Nitrogen 25mg/dL (7-20) Creatinine 1.1mg/dL (0.6-1.0) Estimated GFR (Cockcroft-Gault) 57.3 Glucose Level 110mg/dL (70-99) Calcium Level 9.1mg/dL (8.5-10.1) Review of Systems Review of Systems no fever, chills, sob or chest pain Assessment and Plan Assessmemt and Plan Problems Medical Problems: (1) Back pain Status: Acute (2) Concussion syndrome Status: Acute Problems: Comment Review of Relevant I have reviewed the following items sahil (where applicable) has been applied. Labs Laboratory Tests Test 12/09/16 19:35 12/11/16 05:10 White Blood Count 12.0x10^3/uL (4.0-11.0) 11.1x10^3/uL (4.0-11.0) Red Blood Count 4.66x10^6/uL (3.50-5.40) 4.86x10^6/uL (3.50-5.40) Hemoglobin 13.3g/dL (12.0-15.5) 13.8g/dL (12.0-15.5) Hematocrit 41.6% (36.0-47.0) 43.5% (36.0-47.0) Mean Corpuscular Volume 89fL (79-100) 90fL (79-100) Mean Corpuscular Hemoglobin 29pg (25-35) 28pg (25-35) Mean Corpuscular Hemoglobin Concent 32g/dL (31-37) 32g/dL (31-37) Red Cell Distribution Width 15.2% (11.5-14.5) 15.3% (11.5-14.5) Platelet Count 154x10^3/uL (140-400) 154x10^3/uL (140-400) Neutrophils (%) (Auto) 72% (31-73) 74% (31-73) Lymphocytes (%) (Auto) 16% (24-48) 18% (24-48) Monocytes (%) (Auto) 9% (0-9) 6% (0-9) Eosinophils (%) (Auto) 1% (0-3) 1% (0-3) Basophils (%) (Auto) 1% (0-3) 1% (0-3) Neutrophils # (Auto) 8.7x10^3uL (1.8-7.7) 8.2x10^3uL (1.8-7.7) Lymphocytes # (Auto) 2.0x10^3/uL (1.0-4.8) 2.0x10^3/uL (1.0-4.8) Monocytes # (Auto) 1.1x10^3/uL (0.0-1.1) 0.7x10^3/uL (0.0-1.1) Eosinophils # (Auto) 0.1x10^3/uL (0.0-0.7) 0.1x10^3/uL (0.0-0.7) Basophils # (Auto) 0.2x10^3/uL (0.0-0.2) 0.1x10^3/uL (0.0-0.2) Sodium Level 144mmol/L (136-145) 141mmol/L (136-145) Potassium Level 4.2mmol/L (3.5-5.1) 4.9mmol/L (3.5-5.1) Chloride Level 106mmol/L (98-107) 104mmol/L (98-107) Carbon Dioxide Level 29mmol/L (21-32) 31mmol/L (21-32) Anion Gap 9 (6-14) 6 (6-14) Blood Urea Nitrogen 29mg/dL (7-20) 25mg/dL (7-20) Creatinine 1.2mg/dL (0.6-1.0) 1.1mg/dL (0.6-1.0) Estimated GFR (Cockcroft-Gault) 51.8 57.3 Glucose Level 127mg/dL (70-99) 110mg/dL (70-99) Calcium Level 8.7mg/dL (8.5-10.1) 9.1mg/dL (8.5-10.1) Laboratory Tests Test 12/11/16 05:10 White Blood Count 11.1x10^3/uL (4.0-11.0) Red Blood Count 4.86x10^6/uL (3.50-5.40) Hemoglobin 13.8g/dL (12.0-15.5) Hematocrit 43.5% (36.0-47.0) Mean Corpuscular Volume 90fL (79-100) Mean Corpuscular Hemoglobin 28pg (25-35) Mean Corpuscular Hemoglobin Concent 32g/dL (31-37) Red Cell Distribution Width 15.3% (11.5-14.5) Platelet Count 154x10^3/uL (140-400) Neutrophils (%) (Auto) 74% (31-73) Lymphocytes (%) (Auto) 18% (24-48) Monocytes (%) (Auto) 6% (0-9) Eosinophils (%) (Auto) 1% (0-3) Basophils (%) (Auto) 1% (0-3) Neutrophils # (Auto) 8.2x10^3uL (1.8-7.7) Lymphocytes # (Auto) 2.0x10^3/uL (1.0-4.8) Monocytes # (Auto) 0.7x10^3/uL (0.0-1.1) Eosinophils # (Auto) 0.1x10^3/uL (0.0-0.7) Basophils # (Auto) 0.1x10^3/uL (0.0-0.2) Sodium Level 141mmol/L (136-145) Potassium Level 4.9mmol/L (3.5-5.1) Chloride Level 104mmol/L (98-107) Carbon Dioxide Level 31mmol/L (21-32) Anion Gap 6 (6-14) Blood Urea Nitrogen 25mg/dL (7-20) Creatinine 1.1mg/dL (0.6-1.0) Estimated GFR (Cockcroft-Gault) 57.3 Glucose Level 110mg/dL (70-99) Calcium Level 9.1mg/dL (8.5-10.1) Medications Current Medications Fentanyl Citrate (Fentanyl 2ml Vial) 25 mcg PRN Q15MIN PRN IV PAIN GREATER THAN 10 Last administered on 12/09/16 19:40; Start 12/09/16 at 19:15; Stop at 19:14; Status DC Ondansetron HCl (Zofran) 4 mg PRN Q8HRS PRN IV NAUSEA/VOMITING; Start 12/09/16 at 21:30; Stop 12/10/16 at 21:29; Status DC Morphine Sulfate 2 mg PRN Q2HR PRN IV PAIN Last administered on 12/09/16 22:01 ; Start 12/09/16 at 21:30; Stop 12/09/16 at 22:22; Status DC Acetaminophen (Tylenol) 650 mg PRN Q4HRS PRN PO FEVER; Start 12/09/16 at 21:30 ; Stop 12/10/16 at 21:29; Status DC Aspirin (Ecotrin) 81 mg DAILY PO Last administered on 12/11/16 08:16; Start at 09:00 Chlordiazepoxide/ Clidinium (Librax) 1 cap DAILY PO Last administered on 08:16; Start 12/10/16 at 09:00 Citalopram Hydrobromide (Celexa) 10 mg DAILY PO Last administered on 12/11/16 08:16; Start 12/10/16 at 09:00 Docusate Sodium (Colace) 100 mg PRN QHS PRN PO CONSTIPATION; Start 12/09/16 at 22:30 Docusate Sodium (Colace) 100 mg DAILY PO Last administered on 12/11/16 08:16; Start 12/10/16 at 09:00 Polyethylene Glycol (miraLAX PACKET) 17 gm DAILY PO Last administered on 08:16; Start 12/10/16 at 09:00 Potassium Chloride (Klor-Con) 20 meq 3X/WEEK PO ; Start 12/12/16 at 09:00 Dicyclomine HCl (Bentyl) 20 mg TID PO Last administered on 12/11/16 13:00; Start 12/10/16 at 09:00 Atorvastatin Calcium (Lipitor) 80 mg HS PO FOR CHOLESTEROL Last administered on 12/10/16 21:00; Start 12/10/16 at 21:00 Morphine Sulfate 4 mg PRN Q2HR PRN IV PAIN Last administered on 12/10/16 03:54 ; Start 12/09/16 at 22:30 Oxycodone/ Acetaminophen (Percocet 5/325) 1 tab PRN Q4HRS PRN PO PAIN Last administered on 12/10/16 08:16; Start 12/09/16 at 22:30; Stop 12/10/16 at 13:09 ; Status DC Lidocaine (Lidoderm) 1 patch DAILY TD Last administered on 12/11/16 08:17; Start 12/09/16 at 22:45 Cyclobenzaprine HCl (Flexeril) 10 mg PRN Q6HRS PRN PO MUSCLE SPASMS Last administered on 12/10/16 21:05; Start 12/09/16 at 22:30 Fluconazole (Diflucan) 150 mg 1X ONCE PO Last administered on 12/10/16 12:11 ; Start 12/10/16 at 12:00; Stop 12/10/16 at 12:01; Status DC Methylprednisolone Acetate (Depo-Medrol 40mg Vial) 40 mg 1X ONCE IM Last administered on 12/10/16 12:12; Start 12/10/16 at 12:00; Stop 12/10/16 at 12:01 ; Status DC Methylprednisolone Acetate (Depo-Medrol 40mg Vial) 40 mg 1X ONCE IM ; Start 08/18 at 12:00; Stop 12/10/16 at 12:01; Status DC Bupivacaine HCl (Sensorcaine-Mpf 0.25%) 10 ml 1X ONCE IJ Last administered on 12/10/16 12:14; Start 12/10/16 at 12:00; Stop 12/10/16 at 12:01; Status DC Acetaminophen/ Hydrocodone Bitart (Lortab 10/325) 1 tab PRN Q6HRS PRN PO MODERATE - SEVERE PAIN Last administered on 12/10/16 19:58; Start 12/10/16 at 11:30 Acetaminophen (Tylenol) 650 mg PRN Q6HRS PRN PO MILD PAIN / TEMP; Start at 14:45 Ondansetron HCl (Zofran) 4 mg PRN Q6HRS PRN IV NAUSEA/VOMITING; Start 12/10/16 at 14:45 Iohexol (Omnipaque 240 Mg/ml) 50 ml 1X ONCE PO Last administered on 12/11/16 11:15; Start 12/11/16 at 11:15; Stop 12/11/16 at 11:16; Status DC Active Scripts Active Reported Crestor (Rosuvastatin Calcium) 20 Mg Tablet 20 Mg PO HS Gave last night Take tonight Miralax (Polyethylene Glycol 3350) 17 Gm Powd.pack 1 Pkt PO DAILY Take as needed daily for constipation Librax Capsule (Chlordiazepoxide/Clidinium Br) 1 Each Capsule 25 Cap PO DAILY Gave this morning Take tomorrow Tramadol Hcl 50 Mg Tablet 50 Mg PO PRN Q6HRS PRN Take as needed for pain Citalopram Hbr (Citalopram Hydrobromide) 10 Mg Tablet 10 Mg PO DAILY Gave this morning Take tomorrow Dicyclomine Hcl 20 Mg Tablet 20 Mg PO TID Gave this morning Take this afternoon and tonight Docusate Sodium 100 Mg Capsule 100 Mg PO PRN QHS PRN Take as needed for constipation Potassium Chloride 20 Meq Tab.er.prt 20 Meq PO 3X/WEEK Gave dose on MondayApril 01 continue normal schedule Colace (Docusate Sodium) 100 Mg Capsule 1 Cap PO DAILY Aspir 81 (Aspirin) 81 Mg Tablet.dr 81 Mg PO DAILY Gave this morning Take tomorrow Vitals/I & O Vital Sign - Last 24 Hours 12/10/16 12/10/16 12/10/16 12/10/16 15:00 19:00 19:58 20:00 Temp 97.7 97.6 97.7 97.6 Pulse 69 79 Resp 22 18 18 B/P 112/53 137/76 Pulse Ox 97 92 O2 Delivery Room Air Nasal Cannula Nasal Cannula O2 Flow Rate 2.0 1.0 12/10/16 12/11/16 12/11/16 12/11/16 22:33 03:00 07:00 08:00 Temp 97.4 97.3 98.0 97.4 97.3 98.0 Pulse 55 54 64 Resp 18 18 20 B/P 83/41 106/51 134/56 Pulse Ox 96 96 98 O2 Delivery Nasal Cannula Nasal Cannula Room Air Nasal Cannula O2 Flow Rate 1.0 1.0 1.0 12/11/16 11:00 Temp 97.7 97.7 Pulse 67 Resp 20 B/P 119/57 Pulse Ox 97 O2 Delivery Room Air Intake and Output 12/10/16 12/10/16 12/11/16 15:00 23:00 07:00 Intake Total 480 ml 890 ml 400 ml Output Total 400 ml Balance 480 ml 490 ml 400 ml BABAK WILLIAMSON MD Dec 11, 2016 14:02
[2016-12-11 15:00] VITALS: BP 110/52
[2016-12-11 19:00] VITALS: BP 102/57
[2016-12-11] MEDS ORDERED: MAGNESIUM HYDROXIDE 2,400 MG/30 ML ORAL.SUSP. PO PRN (19:00)
[2016-12-11] MEDS: ATORVASTATIN CALCIUM 40 MG TABLET. PO SCH (21:20)
[2016-12-11] MEDS: HYDROCODONE/APAP 10/325 TABLET. PO PRN (21:28)
[2016-12-11 23:00] VITALS: BP 103/53
[2016-12-12 03:00] VITALS: BP 94/52
[2016-12-12 06:48] LABS: CREATININE 1.1 mg/dL (0.6-1.0); GFR 57.3; POTASSIUM 4.7 mmol/L (3.5-5.1)
[2016-12-12 06:54] LABS: BASO # 0.1 x10^3/uL (0.0-0.2); BASO % 1 % (0-3); EOS % 2 % (0-3); HEMATOCRIT 41.1 % (36.0-47.0); LYMPH # 2.2 x10^3/uL (1.0-4.8); LYMPH % 25 % (24-48); MEAN CORPUSCULAR HEMOGLOBIN 28 pg (25-35); MEAN CORPUSCULAR HGB CONC 32 g/dL (31-37); MEAN CORPUSCULAR VOLUME 90 fL (79-100); MONO % 8 % (0-9); NEUT % 64 % (31-73); PLATELET COUNT 146 x10^3/uL (140-400); RED BLOOD COUNT 4.58 x10^6/uL (3.50-5.40); RED CELL DISTRIBUTION WIDTH 15.5 % (11.5-14.5); WHITE BLOOD COUNT 8.8 x10^3/uL (4.0-11.0)
[2016-12-12 07:00] VITALS: BP 120/64
[2016-12-12] MEDS ORDERED: POTASSIUM CHLORIDE 20 MEQ TABLET.ER. PO SCH (09:00)
[2016-12-12] MEDS: DICYCLOMINE HCL 10 MG CAPSULE PO SCH ×3 (09:47→20:47)
[2016-12-12] MEDS: ASPIRIN ENTERIC COATED 81 MG TABLET.DR. PO SCH (09:48)
[2016-12-12] MEDS: DOCUSATE SODIUM 100 MG CAPSULE PO SCH (09:48)
[2016-12-12] MEDS: CITALOPRAM 10 MG TABLET. PO SCH (09:48)
[2016-12-12] MEDS: CHLORDIAZEPOXIDE/CLIDINIUM 5MG/2.5MG CAPSULE. PO SCH (09:56)
[2016-12-12] MEDS: HYDROCODONE/APAP 10/325 TABLET. PO PRN (09:57)
[2016-12-12] MEDS: POLYETHYLENE GLYCOL 3350 17 GM PACKET. PO SCH (09:57)
[2016-12-12] MEDS: LIDOCAINE (700MG/PATCH) PATCH. TD SCH (09:57)
[2016-12-12] MEDS: NYSTATIN TOPICAL POWDER 15GM BOTTLE. TP SCH ×2 (09:59→20:46)
[2016-12-12] MEDS: CYCLOBENZAPRINE 10 MG TABLET. PO PRN (09:59)
--- NOTE | 2016-12-12 10:04 | PDOC ---
PROGRESS NOTES Subjective Subjective She admits continued low back pain. 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 Assessment Assessment Problems Medical Problems: (1) Back pain Status: Acute (2) Concussion syndrome Status: Acute Plan Plan of Longterm with home health follow up tomorrow. Comment Review of Relevant I have reviewed the following items sahil (where applicable) has been applied. Labs Laboratory Tests Test 12/11/16 05:10 12/12/16 06:15 White Blood Count 11.1x10^3/uL (4.0-11.0) 8.8x10^3/uL (4.0-11.0) Red Blood Count 4.86x10^6/uL (3.50-5.40) 4.58x10^6/uL (3.50-5.40) Hemoglobin 13.8g/dL (12.0-15.5) 13.0g/dL (12.0-15.5) Hematocrit 43.5% (36.0-47.0) 41.1% (36.0-47.0) Mean Corpuscular Volume 90fL (79-100) 90fL (79-100) Mean Corpuscular Hemoglobin 28pg (25-35) 28pg (25-35) Mean Corpuscular Hemoglobin Concent 32g/dL (31-37) 32g/dL (31-37) Red Cell Distribution Width 15.3% (11.5-14.5) 15.5% (11.5-14.5) Platelet Count 154x10^3/uL (140-400) 146x10^3/uL (140-400) Neutrophils (%) (Auto) 74% (31-73) 64% (31-73) Lymphocytes (%) (Auto) 18% (24-48) 25% (24-48) Monocytes (%) (Auto) 6% (0-9) 8% (0-9) Eosinophils (%) (Auto) 1% (0-3) 2% (0-3) Basophils (%) (Auto) 1% (0-3) 1% (0-3) Neutrophils # (Auto) 8.2x10^3uL (1.8-7.7) 5.6x10^3uL (1.8-7.7) Lymphocytes # (Auto) 2.0x10^3/uL (1.0-4.8) 2.2x10^3/uL (1.0-4.8) Monocytes # (Auto) 0.7x10^3/uL (0.0-1.1) 0.7x10^3/uL (0.0-1.1) Eosinophils # (Auto) 0.1x10^3/uL (0.0-0.7) 0.2x10^3/uL (0.0-0.7) Basophils # (Auto) 0.1x10^3/uL (0.0-0.2) 0.1x10^3/uL (0.0-0.2) Sodium Level 141mmol/L (136-145) 144mmol/L (136-145) Potassium Level 4.9mmol/L (3.5-5.1) 4.7mmol/L (3.5-5.1) Chloride Level 104mmol/L (98-107) 105mmol/L (98-107) Carbon Dioxide Level 31mmol/L (21-32) 35mmol/L (21-32) Anion Gap 6 (6-14) 4 (6-14) Blood Urea Nitrogen 25mg/dL (7-20) 26mg/dL (7-20) Creatinine 1.1mg/dL (0.6-1.0) 1.1mg/dL (0.6-1.0) Estimated GFR (Cockcroft-Gault) 57.3 57.3 Glucose Level 110mg/dL (70-99) 98mg/dL (70-99) Calcium Level 9.1mg/dL (8.5-10.1) 9.0mg/dL (8.5-10.1) Laboratory Tests Test 12/12/16 06:15 White Blood Count 8.8x10^3/uL (4.0-11.0) Red Blood Count 4.58x10^6/uL (3.50-5.40) Hemoglobin 13.0g/dL (12.0-15.5) Hematocrit 41.1% (36.0-47.0) Mean Corpuscular Volume 90fL (79-100) Mean Corpuscular Hemoglobin 28pg (25-35) Mean Corpuscular Hemoglobin Concent 32g/dL (31-37) Red Cell Distribution Width 15.5% (11.5-14.5) Platelet Count 146x10^3/uL (140-400) Neutrophils (%) (Auto) 64% (31-73) Lymphocytes (%) (Auto) 25% (24-48) Monocytes (%) (Auto) 8% (0-9) Eosinophils (%) (Auto) 2% (0-3) Basophils (%) (Auto) 1% (0-3) Neutrophils # (Auto) 5.6x10^3uL (1.8-7.7) Lymphocytes # (Auto) 2.2x10^3/uL (1.0-4.8) Monocytes # (Auto) 0.7x10^3/uL (0.0-1.1) Eosinophils # (Auto) 0.2x10^3/uL (0.0-0.7) Basophils # (Auto) 0.1x10^3/uL (0.0-0.2) Sodium Level 144mmol/L (136-145) Potassium Level 4.7mmol/L (3.5-5.1) Chloride Level 105mmol/L (98-107) Carbon Dioxide Level 35mmol/L (21-32) Anion Gap 4 (6-14) Blood Urea Nitrogen 26mg/dL (7-20) Creatinine 1.1mg/dL (0.6-1.0) Estimated GFR (Cockcroft-Gault) 57.3 Glucose Level 98mg/dL (70-99) Calcium Level 9.0mg/dL (8.5-10.1) Medications Current Medications Fentanyl Citrate (Fentanyl 2ml Vial) 25 mcg PRN Q15MIN PRN IV PAIN GREATER THAN 3/10 Last administered on 12/09/16 19:40; Start 12/09/16 at 19:15; Stop at 19:14; Status DC Ondansetron HCl (Zofran) 4 mg PRN Q8HRS PRN IV NAUSEA/VOMITING; Start 12/09/16 at 21:30; Stop 12/10/16 at 21:29; Status DC Morphine Sulfate 2 mg PRN Q2HR PRN IV PAIN Last administered on 12/09/16 22:01 ; Start 12/09/16 at 21:30; Stop 12/09/16 at 22:22; Status DC Acetaminophen (Tylenol) 650 mg PRN Q4HRS PRN PO FEVER; Start 12/09/16 at 21:30 ; Stop 12/10/16 at 21:29; Status DC Aspirin (Ecotrin) 81 mg DAILY PO Last administered on 12/11/16 08:16; Start at 09:00 Chlordiazepoxide/ Clidinium (Librax) 1 cap DAILY PO Last administered on 08:16; Start 12/10/16 at 09:00 Citalopram Hydrobromide (Celexa) 10 mg DAILY PO Last administered on 12/11/16 08:16; Start 12/10/16 at 09:00 Docusate Sodium (Colace) 100 mg PRN QHS PRN PO CONSTIPATION Last administered on 12/11/16 18:35; Start 12/09/16 at 22:30 Docusate Sodium (Colace) 100 mg DAILY PO Last administered on 12/11/16 08:16; Start 12/10/16 at 09:00 Polyethylene Glycol (miraLAX PACKET) 17 gm DAILY PO Last administered on 08:16; Start 12/10/16 at 09:00 Potassium Chloride (Klor-Con) 20 meq 3X/WEEK PO ; Start 12/12/16 at 09:00 Dicyclomine HCl (Bentyl) 20 mg TID PO Last administered on 12/11/16 21:20; Start 12/10/16 at 09:00 Atorvastatin Calcium (Lipitor) 80 mg HS PO FOR CHOLESTEROL Last administered on 12/11/16 21:20; Start 12/10/16 at 21:00 Morphine Sulfate 4 mg PRN Q2HR PRN IV PAIN Last administered on 12/10/16 03:54 ; Start 12/09/16 at 22:30 Oxycodone/ Acetaminophen (Percocet 5/325) 1 tab PRN Q4HRS PRN PO PAIN Last administered on 12/10/16 08:16; Start 12/09/16 at 22:30; Stop 12/10/16 at 13:09 ; Status DC Lidocaine (Lidoderm) 1 patch DAILY TD Last administered on 12/11/16 08:17; Start 12/09/16 at 22:45 Cyclobenzaprine HCl (Flexeril) 10 mg PRN Q6HRS PRN PO MUSCLE SPASMS Last administered on 12/10/16 21:05; Start 12/09/16 at 22:30 Fluconazole (Diflucan) 150 mg 1X ONCE PO Last administered on 12/10/16 12:11 ; Start 12/10/16 at 12:00; Stop 12/10/16 at 12:01; Status DC Methylprednisolone Acetate (Depo-Medrol 40mg Vial) 40 mg 1X ONCE IM Last administered on 12/10/16 12:12; Start 12/10/16 at 12:00; Stop 12/10/16 at 12:01 ; Status DC Methylprednisolone Acetate (Depo-Medrol 40mg Vial) 40 mg 1X ONCE IM ; Start 08/18 at 12:00; Stop 12/10/16 at 12:01; Status DC Bupivacaine HCl (Sensorcaine-Mpf 0.25%) 10 ml 1X ONCE IJ Last administered on 12/10/16 12:14; Start 12/10/16 at 12:00; Stop 12/10/16 at 12:01; Status DC Acetaminophen/ Hydrocodone Bitart (Lortab 10/325) 1 tab PRN Q6HRS PRN PO MODERATE - SEVERE PAIN Last administered on 12/11/16 21:28; Start 12/10/16 at 11:30 Acetaminophen (Tylenol) 650 mg PRN Q6HRS PRN PO MILD PAIN / TEMP; Start at 14:45 Ondansetron HCl (Zofran) 4 mg PRN Q6HRS PRN IV NAUSEA/VOMITING; Start 12/10/16 at 14:45 Iohexol (Omnipaque 240 Mg/ml) 50 ml 1X ONCE PO Last administered on 12/11/16 11:15; Start 12/11/16 at 11:15; Stop 12/11/16 at 11:16; Status DC Magnesium Hydroxide (Milk Of Magnesia) 2,400 mg PRN BID PRN PO CONSTIPATION Last administered on 12/11/16 19:01; Start 12/11/16 at 19:00 Nystatin (Nystop) 1 lino BID TP ; Start 12/12/16 at 21:00; Status UNV Active Scripts Active Reported Crestor (Rosuvastatin Calcium) 20 Mg Tablet 20 Mg PO HS Gave last night Take tonight Miralax (Polyethylene Glycol 3350) 17 Gm Powd.pack 1 Pkt PO DAILY Take as needed daily for constipation Librax Capsule (Chlordiazepoxide/Clidinium Br) 1 Each Capsule 25 Cap PO DAILY Gave this morning Take tomorrow Tramadol Hcl 50 Mg Tablet 50 Mg PO PRN Q6HRS PRN Take as needed for pain Citalopram Hbr (Citalopram Hydrobromide) 10 Mg Tablet 10 Mg PO DAILY Gave this morning Take tomorrow Dicyclomine Hcl 20 Mg Tablet 20 Mg PO TID Gave this morning Take this afternoon and tonight Docusate Sodium 100 Mg Capsule 100 Mg PO PRN QHS PRN Take as needed for constipation Potassium Chloride 20 Meq Tab.er.prt 20 Meq PO 3X/WEEK Gave dose on MondayApril 01 continue normal schedule Colace (Docusate Sodium) 100 Mg Capsule 1 Cap PO DAILY Aspir 81 (Aspirin) 81 Mg Tablet.dr 81 Mg PO DAILY Gave this morning Take tomorrow Vitals/I & O Vital Sign - Last 24 Hours 12/11/16 12/11/16 12/11/16 12/11/16 11:00 15:00 19:00 20:00 Temp 97.7 97.2 98.8 97.7 97.2 98.8 Pulse 67 68 73 Resp 20 22 20 B/P 119/57 110/52 102/57 Pulse Ox 97 98 91 O2 Delivery Room Air Room Air Room Air Nasal Cannula O2 Flow Rate 1.0 12/11/16 12/11/16 12/12/16 12/12/16 21:28 23:00 03:00 07:00 Temp 97.5 98.1 98.4 97.5 98.1 98.4 Pulse 64 65 62 Resp 20 20 24 B/P 103/53 94/52 120/64 Pulse Ox 91 93 98 O2 Delivery Room Air Nasal Cannula Nasal Cannula Room Air O2 Flow Rate 2.0 2.0 Intake and Output 12/11/16 12/11/16 12/12/16 15:00 23:00 07:00 Intake Total 1090 ml 600 ml 200 ml Output Total 1220 ml 500 ml Balance -130 ml 100 ml 200 ml IMAN MICHAELS MD Dec 12, 2016 10:04
--- NOTE | 2016-12-12 12:32 | PDOC ---
PROGRESS NOTES Chief Complaint Chief Complaint - acute on chronic back pain post fall, unable to transfer or walk - concussion, minor, asymptomatic - T 2 diabetes melitis - h/o CAD, s/p VA X5 - DEON; 2 liters at baseline - obesity BMI 38 - CKD3 - vaginitis with itchiness, no discharge - R lung 4mm nodule on CT, fu as outpt History of Present Illness History of Present Illness Patient lying down in bed in no acute distress when evaluated this AM. Reporting continued pain, but with appropriate control. Pt feels that she is in need of rehab following this admission, as she is having trouble ambulating and would struggle when alone at home. Discussed case with Dr. Frye and RN. Vitals Vitals Vital Signs Date Time Temp Pulse Resp B/P Pulse Ox O2 Delivery O2 Flow Rate FiO2 12/12/16 08:00 Nasal Cannula 1.0 12/12/16 07:00 98.4 62 24 120/64 98 98.4 Physical Exam General: Alert, Oriented X3, Cooperative, No acute distress Heart: Regular rate, Normal S1 Lungs: Clear Abdomen: Normal bowel sounds, Soft Extremities: No clubbing, No cyanosis, No edema Skin: No rashes, No significant lesion Labs LABS Laboratory Tests Test 12/12/16 06:15 White Blood Count 8.8x10^3/uL (4.0-11.0) Red Blood Count 4.58x10^6/uL (3.50-5.40) Hemoglobin 13.0g/dL (12.0-15.5) Hematocrit 41.1% (36.0-47.0) Mean Corpuscular Volume 90fL (79-100) Mean Corpuscular Hemoglobin 28pg (25-35) Mean Corpuscular Hemoglobin Concent 32g/dL (31-37) Red Cell Distribution Width 15.5% (11.5-14.5) Platelet Count 146x10^3/uL (140-400) Neutrophils (%) (Auto) 64% (31-73) Lymphocytes (%) (Auto) 25% (24-48) Monocytes (%) (Auto) 8% (0-9) Eosinophils (%) (Auto) 2% (0-3) Basophils (%) (Auto) 1% (0-3) Neutrophils # (Auto) 5.6x10^3uL (1.8-7.7) Lymphocytes # (Auto) 2.2x10^3/uL (1.0-4.8) Monocytes # (Auto) 0.7x10^3/uL (0.0-1.1) Eosinophils # (Auto) 0.2x10^3/uL (0.0-0.7) Basophils # (Auto) 0.1x10^3/uL (0.0-0.2) Sodium Level 144mmol/L (136-145) Potassium Level 4.7mmol/L (3.5-5.1) Chloride Level 105mmol/L (98-107) Carbon Dioxide Level 35mmol/L (21-32) Anion Gap 4 (6-14) Blood Urea Nitrogen 26mg/dL (7-20) Creatinine 1.1mg/dL (0.6-1.0) Estimated GFR (Cockcroft-Gault) 57.3 Glucose Level 98mg/dL (70-99) Calcium Level 9.0mg/dL (8.5-10.1) Review of Systems Review of Systems denies fever, chills denies chest pain + knee and back pain, appropriately controlled Assessment and Plan Assessmemt and Plan ASSESSMENT: - acute on chronic back pain post fall, unable to transfer or walk - concussion, minor, asymptomatic - T 2 diabetes melitis - h/o CAD, s/p VA X5 - DEON; 2 liters at baseline - obesity BMI 38 - CKD3 - vaginitis with itchiness, no discharge - R lung 4mm nodule on CT, f/u as outpt, not likely malignancy PLAN: - probable SNU in AM - Dr. Frye recommending knee brace and back brace upon discharge - repeat daily labs - cont pain control - PTOT - Pulmonology following for R lobe 4mm nodule, recommending f/u as outpt. CT showing likely postinflammatory scarring NOT malignancy - discussed case with Dr. Frye and RN Problems: Comment Review of Relevant I have reviewed the following items sahil (where applicable) has been applied. Labs Laboratory Tests Test 12/11/16 05:10 12/12/16 06:15 White Blood Count 11.1x10^3/uL (4.0-11.0) 8.8x10^3/uL (4.0-11.0) Red Blood Count 4.86x10^6/uL (3.50-5.40) 4.58x10^6/uL (3.50-5.40) Hemoglobin 13.8g/dL (12.0-15.5) 13.0g/dL (12.0-15.5) Hematocrit 43.5% (36.0-47.0) 41.1% (36.0-47.0) Mean Corpuscular Volume 90fL (79-100) 90fL (79-100) Mean Corpuscular Hemoglobin 28pg (25-35) 28pg (25-35) Mean Corpuscular Hemoglobin Concent 32g/dL (31-37) 32g/dL (31-37) Red Cell Distribution Width 15.3% (11.5-14.5) 15.5% (11.5-14.5) Platelet Count 154x10^3/uL (140-400) 146x10^3/uL (140-400) Neutrophils (%) (Auto) 74% (31-73) 64% (31-73) Lymphocytes (%) (Auto) 18% (24-48) 25% (24-48) Monocytes (%) (Auto) 6% (0-9) 8% (0-9) Eosinophils (%) (Auto) 1% (0-3) 2% (0-3) Basophils (%) (Auto) 1% (0-3) 1% (0-3) Neutrophils # (Auto) 8.2x10^3uL (1.8-7.7) 5.6x10^3uL (1.8-7.7) Lymphocytes # (Auto) 2.0x10^3/uL (1.0-4.8) 2.2x10^3/uL (1.0-4.8) Monocytes # (Auto) 0.7x10^3/uL (0.0-1.1) 0.7x10^3/uL (0.0-1.1) Eosinophils # (Auto) 0.1x10^3/uL (0.0-0.7) 0.2x10^3/uL (0.0-0.7) Basophils # (Auto) 0.1x10^3/uL (0.0-0.2) 0.1x10^3/uL (0.0-0.2) Sodium Level 141mmol/L (136-145) 144mmol/L (136-145) Potassium Level 4.9mmol/L (3.5-5.1) 4.7mmol/L (3.5-5.1) Chloride Level 104mmol/L (98-107) 105mmol/L (98-107) Carbon Dioxide Level 31mmol/L (21-32) 35mmol/L (21-32) Anion Gap 6 (6-14) 4 (6-14) Blood Urea Nitrogen 25mg/dL (7-20) 26mg/dL (7-20) Creatinine 1.1mg/dL (0.6-1.0) 1.1mg/dL (0.6-1.0) Estimated GFR (Cockcroft-Gault) 57.3 57.3 Glucose Level 110mg/dL (70-99) 98mg/dL (70-99) Calcium Level 9.1mg/dL (8.5-10.1) 9.0mg/dL (8.5-10.1) Laboratory Tests Test 12/12/16 06:15 White Blood Count 8.8x10^3/uL (4.0-11.0) Red Blood Count 4.58x10^6/uL (3.50-5.40) Hemoglobin 13.0g/dL (12.0-15.5) Hematocrit 41.1% (36.0-47.0) Mean Corpuscular Volume 90fL (79-100) Mean Corpuscular Hemoglobin 28pg (25-35) Mean Corpuscular Hemoglobin Concent 32g/dL (31-37) Red Cell Distribution Width 15.5% (11.5-14.5) Platelet Count 146x10^3/uL (140-400) Neutrophils (%) (Auto) 64% (31-73) Lymphocytes (%) (Auto) 25% (24-48) Monocytes (%) (Auto) 8% (0-9) Eosinophils (%) (Auto) 2% (0-3) Basophils (%) (Auto) 1% (0-3) Neutrophils # (Auto) 5.6x10^3uL (1.8-7.7) Lymphocytes # (Auto) 2.2x10^3/uL (1.0-4.8) Monocytes # (Auto) 0.7x10^3/uL (0.0-1.1) Eosinophils # (Auto) 0.2x10^3/uL (0.0-0.7) Basophils # (Auto) 0.1x10^3/uL (0.0-0.2) Sodium Level 144mmol/L (136-145) Potassium Level 4.7mmol/L (3.5-5.1) Chloride Level 105mmol/L (98-107) Carbon Dioxide Level 35mmol/L (21-32) Anion Gap 4 (6-14) Blood Urea Nitrogen 26mg/dL (7-20) Creatinine 1.1mg/dL (0.6-1.0) Estimated GFR (Cockcroft-Gault) 57.3 Glucose Level 98mg/dL (70-99) Calcium Level 9.0mg/dL (8.5-10.1) Medications Current Medications Fentanyl Citrate (Fentanyl 2ml Vial) 25 mcg PRN Q15MIN PRN IV PAIN GREATER THAN 3/10 Last administered on 12/09/16 19:40; Start 12/09/16 at 19:15; Stop at 19:14; Status DC Ondansetron HCl (Zofran) 4 mg PRN Q8HRS PRN IV NAUSEA/VOMITING; Start 12/09/16 at 21:30; Stop 12/10/16 at 21:29; Status DC Morphine Sulfate 2 mg PRN Q2HR PRN IV PAIN Last administered on 12/09/16 22:01 ; Start 12/09/16 at 21:30; Stop 12/09/16 at 22:22; Status DC Acetaminophen (Tylenol) 650 mg PRN Q4HRS PRN PO FEVER; Start 12/09/16 at 21:30 ; Stop 12/10/16 at 21:29; Status DC Aspirin (Ecotrin) 81 mg DAILY PO Last administered on 12/12/16 09:48; Start at 09:00 Chlordiazepoxide/ Clidinium (Librax) 1 cap DAILY PO Last administered on 09:56; Start 12/10/16 at 09:00 Citalopram Hydrobromide (Celexa) 10 mg DAILY PO Last administered on 12/12/16 09:48; Start 12/10/16 at 09:00 Docusate Sodium (Colace) 100 mg PRN QHS PRN PO CONSTIPATION Last administered on 12/11/16 18:35; Start 12/09/16 at 22:30 Docusate Sodium (Colace) 100 mg DAILY PO Last administered on 12/12/16 09:48; Start 12/10/16 at 09:00 Polyethylene Glycol (miraLAX PACKET) 17 gm DAILY PO Last administered on 09:57; Start 12/10/16 at 09:00 Potassium Chloride (Klor-Con) 20 meq 3X/WEEK PO Last administered on 12/12/16 09:56; Start 12/12/16 at 09:00 Dicyclomine HCl (Bentyl) 20 mg TID PO Last administered on 12/12/16 09:47; Start 12/10/16 at 09:00 Atorvastatin Calcium (Lipitor) 80 mg HS PO FOR CHOLESTEROL Last administered on 12/11/16 21:20; Start 12/10/16 at 21:00 Morphine Sulfate 4 mg PRN Q2HR PRN IV PAIN Last administered on 12/10/16 03:54 ; Start 12/09/16 at 22:30 Oxycodone/ Acetaminophen (Percocet 5/325) 1 tab PRN Q4HRS PRN PO PAIN Last administered on 12/10/16 08:16; Start 12/09/16 at 22:30; Stop 12/10/16 at 13:09 ; Status DC Lidocaine (Lidoderm) 1 patch DAILY TD Last administered on 12/12/16 09:57; Start 12/09/16 at 22:45 Cyclobenzaprine HCl (Flexeril) 10 mg PRN Q6HRS PRN PO MUSCLE SPASMS Last administered on 12/12/16 09:59; Start 12/09/16 at 22:30 Fluconazole (Diflucan) 150 mg 1X ONCE PO Last administered on 12/10/16 12:11 ; Start 12/10/16 at 12:00; Stop 12/10/16 at 12:01; Status DC Methylprednisolone Acetate (Depo-Medrol 40mg Vial) 40 mg 1X ONCE IM Last administered on 12/10/16 12:12; Start 12/10/16 at 12:00; Stop 12/10/16 at 12:01 ; Status DC Methylprednisolone Acetate (Depo-Medrol 40mg Vial) 40 mg 1X ONCE IM ; Start 08/18 at 12:00; Stop 12/10/16 at 12:01; Status DC Bupivacaine HCl (Sensorcaine-Mpf 0.25%) 10 ml 1X ONCE IJ Last administered on 12/10/16 12:14; Start 12/10/16 at 12:00; Stop 12/10/16 at 12:01; Status DC Acetaminophen/ Hydrocodone Bitart (Lortab 10/325) 1 tab PRN Q6HRS PRN PO MODERATE - SEVERE PAIN Last administered on 12/12/16 09:57; Start 12/10/16 at 11:30 Acetaminophen (Tylenol) 650 mg PRN Q6HRS PRN PO MILD PAIN / TEMP; Start at 14:45 Ondansetron HCl (Zofran) 4 mg PRN Q6HRS PRN IV NAUSEA/VOMITING; Start 12/10/16 at 14:45 Iohexol (Omnipaque 240 Mg/ml) 50 ml 1X ONCE PO Last administered on 12/11/16 11:15; Start 12/11/16 at 11:15; Stop 12/11/16 at 11:16; Status DC Magnesium Hydroxide (Milk Of Magnesia) 2,400 mg PRN BID PRN PO CONSTIPATION Last administered on 12/11/16 19:01; Start 12/11/16 at 19:00 Nystatin (Nystop) 1 lino BID TP Last administered on 12/12/16 09:59; Start at 09:00 Active Scripts Active Reported Crestor (Rosuvastatin Calcium) 20 Mg Tablet 20 Mg PO HS Gave last night Take tonight Miralax (Polyethylene Glycol 3350) 17 Gm Powd.pack 1 Pkt PO DAILY Take as needed daily for constipation Librax Capsule (Chlordiazepoxide/Clidinium Br) 1 Each Capsule 25 Cap PO DAILY Gave this morning Take tomorrow Tramadol Hcl 50 Mg Tablet 50 Mg PO PRN Q6HRS PRN Take as needed for pain Citalopram Hbr (Citalopram Hydrobromide) 10 Mg Tablet 10 Mg PO DAILY Gave this morning Take tomorrow Dicyclomine Hcl 20 Mg Tablet 20 Mg PO TID Gave this morning Take this afternoon and tonight Docusate Sodium 100 Mg Capsule 100 Mg PO PRN QHS PRN Take as needed for constipation Potassium Chloride 20 Meq Tab.er.prt 20 Meq PO 3X/WEEK Gave dose on MondayApril 01 continue normal schedule Colace (Docusate Sodium) 100 Mg Capsule 1 Cap PO DAILY Aspir 81 (Aspirin) 81 Mg Tablet.dr 81 Mg PO DAILY Gave this morning Take tomorrow Vitals/I & O Vital Sign - Last 24 Hours 12/11/16 12/11/16 12/11/16 12/11/16 15:00 19:00 20:00 21:28 Temp 97.2 98.8 97.2 98.8 Pulse 68 73 Resp 22 20 B/P 110/52 102/57 Pulse Ox 98 91 O2 Delivery Room Air Room Air Nasal Cannula Room Air O2 Flow Rate 1.0 12/11/16 12/12/16 12/12/16 12/12/16 23:00 03:00 07:00 08:00 Temp 97.5 98.1 98.4 97.5 98.1 98.4 Pulse 64 65 62 Resp 20 20 24 B/P 103/53 94/52 120/64 Pulse Ox 91 93 98 O2 Delivery Nasal Cannula Nasal Cannula Room Air Nasal Cannula O2 Flow Rate 2.0 2.0 1.0 Intake and Output 12/11/16 12/11/16 12/12/16 15:00 23:00 07:00 Intake Total 1090 ml 600 ml 200 ml Output Total 1220 ml 500 ml Balance -130 ml 100 ml 200 ml JJ YO III DO Dec 12, 2016 12:32
[2016-12-12 15:00] VITALS: BP 114/66
--- NOTE | 2016-12-12 15:50 | PDOC ---
PULMONARY PROGRESS NOTES Vitals Vital Signs Date Time Temp Pulse Resp B/P Pulse Ox O2 Delivery O2 Flow Rate FiO2 12/12/16 08:00 Nasal Cannula 1.0 12/12/16 07:00 98.4 62 24 120/64 98 98.4 Lungs: Clear Labs Laboratory Tests Test 12/11/16 05:10 12/12/16 06:15 White Blood Count 11.1x10^3/uL (4.0-11.0) 8.8x10^3/uL (4.0-11.0) Red Blood Count 4.86x10^6/uL (3.50-5.40) 4.58x10^6/uL (3.50-5.40) Hemoglobin 13.8g/dL (12.0-15.5) 13.0g/dL (12.0-15.5) Hematocrit 43.5% (36.0-47.0) 41.1% (36.0-47.0) Mean Corpuscular Volume 90fL (79-100) 90fL (79-100) Mean Corpuscular Hemoglobin 28pg (25-35) 28pg (25-35) Mean Corpuscular Hemoglobin Concent 32g/dL (31-37) 32g/dL (31-37) Red Cell Distribution Width 15.3% (11.5-14.5) 15.5% (11.5-14.5) Platelet Count 154x10^3/uL (140-400) 146x10^3/uL (140-400) Neutrophils (%) (Auto) 74% (31-73) 64% (31-73) Lymphocytes (%) (Auto) 18% (24-48) 25% (24-48) Monocytes (%) (Auto) 6% (0-9) 8% (0-9) Eosinophils (%) (Auto) 1% (0-3) 2% (0-3) Basophils (%) (Auto) 1% (0-3) 1% (0-3) Neutrophils # (Auto) 8.2x10^3uL (1.8-7.7) 5.6x10^3uL (1.8-7.7) Lymphocytes # (Auto) 2.0x10^3/uL (1.0-4.8) 2.2x10^3/uL (1.0-4.8) Monocytes # (Auto) 0.7x10^3/uL (0.0-1.1) 0.7x10^3/uL (0.0-1.1) Eosinophils # (Auto) 0.1x10^3/uL (0.0-0.7) 0.2x10^3/uL (0.0-0.7) Basophils # (Auto) 0.1x10^3/uL (0.0-0.2) 0.1x10^3/uL (0.0-0.2) Sodium Level 141mmol/L (136-145) 144mmol/L (136-145) Potassium Level 4.9mmol/L (3.5-5.1) 4.7mmol/L (3.5-5.1) Chloride Level 104mmol/L (98-107) 105mmol/L (98-107) Carbon Dioxide Level 31mmol/L (21-32) 35mmol/L (21-32) Anion Gap 6 (6-14) 4 (6-14) Blood Urea Nitrogen 25mg/dL (7-20) 26mg/dL (7-20) Creatinine 1.1mg/dL (0.6-1.0) 1.1mg/dL (0.6-1.0) Estimated GFR (Cockcroft-Gault) 57.3 57.3 Glucose Level 110mg/dL (70-99) 98mg/dL (70-99) Calcium Level 9.1mg/dL (8.5-10.1) 9.0mg/dL (8.5-10.1) Laboratory Tests Test 12/12/16 06:15 White Blood Count 8.8x10^3/uL (4.0-11.0) Red Blood Count 4.58x10^6/uL (3.50-5.40) Hemoglobin 13.0g/dL (12.0-15.5) Hematocrit 41.1% (36.0-47.0) Mean Corpuscular Volume 90fL (79-100) Mean Corpuscular Hemoglobin 28pg (25-35) Mean Corpuscular Hemoglobin Concent 32g/dL (31-37) Red Cell Distribution Width 15.5% (11.5-14.5) Platelet Count 146x10^3/uL (140-400) Neutrophils (%) (Auto) 64% (31-73) Lymphocytes (%) (Auto) 25% (24-48) Monocytes (%) (Auto) 8% (0-9) Eosinophils (%) (Auto) 2% (0-3) Basophils (%) (Auto) 1% (0-3) Neutrophils # (Auto) 5.6x10^3uL (1.8-7.7) Lymphocytes # (Auto) 2.2x10^3/uL (1.0-4.8) Monocytes # (Auto) 0.7x10^3/uL (0.0-1.1) Eosinophils # (Auto) 0.2x10^3/uL (0.0-0.7) Basophils # (Auto) 0.1x10^3/uL (0.0-0.2) Sodium Level 144mmol/L (136-145) Potassium Level 4.7mmol/L (3.5-5.1) Chloride Level 105mmol/L (98-107) Carbon Dioxide Level 35mmol/L (21-32) Anion Gap 4 (6-14) Blood Urea Nitrogen 26mg/dL (7-20) Creatinine 1.1mg/dL (0.6-1.0) Estimated GFR (Cockcroft-Gault) 57.3 Glucose Level 98mg/dL (70-99) Calcium Level 9.0mg/dL (8.5-10.1) Medications Active Scripts Medications Dose Route/Sig Days Date Category Dose Instructions Crestor (Rosuvastatin Calcium) 20 Mg Tablet 20 Mg PO HS 04/01/16 Reported Gave last night Take tonight Miralax (Polyethylene Glycol 3350) 17 Gm Powd.pack 1 Pkt PO DAILY 04/01/16 Reported Take as needed daily for constipation Librax Capsule (Chlordiazepoxide/Clidinium Br) 1 Each Capsule 25 Cap PO DAILY 04/01/16 Reported Gave this morning Take tomorrow Tramadol Hcl 50 Mg Tablet 50 Mg PO PRN Q6HRS PRN 09/30/15 Reported Take as needed for pain Citalopram Hbr (Citalopram Hydrobromide) 10 Mg Tablet 10 Mg PO DAILY 09/30/15 Reported Gave this morning Take tomorrow Dicyclomine Hcl 20 Mg Tablet 20 Mg PO TID 09/30/15 Reported Gave this morning Take this afternoon and tonight Docusate Sodium 100 Mg Capsule 100 Mg PO PRN QHS PRN 09/30/15 Reported Take as needed for constipation Potassium Chloride 20 Meq Tab.er.prt 20 Meq PO 3X/WEEK 02/25/15 Reported Gave dose on MondayApril 01 continue normal schedule Colace (Docusate Sodium) 100 Mg Capsule 1 Cap PO DAILY 11/29/14 Reported Aspir 81 (Aspirin) 81 Mg Tablet. 81 Mg PO DAILY 12/27/13 Reported Gave this morning Take tomorrow Impression . 1. A 4-mm nodule seen in the right upper lobe and a tiny subpleural irregular opacity in the right lower lobe. This was seen on a thoracic spine CT. She has no tobacco history and as such, has very minimal risk of lung cancer. However, she has approximately 50-pound weight loss in the past one year, and a metastatic workup would be reasonable. I would obtain a full CT chest, abdomen, and pelvis. 2. Chronic respiratory failure, on home oxygen at 2 liters, being followed by my partner, Dr. Brito. 3. No significant history of tobacco use. Plan . RECOMMENDATIONS: 1. Obtain noncontrast CT chest, abdomen, and pelvis. 2. If there is no evidence of any metastatic disease, then she should have a followup CT chest in 4 to 6 months to make sure that the nodule is not increased in size. The patient is to follow with Dr. Brito in the office around that time. 3. Management of back pain per PCP. SHAN BRITO MD Dec 12, 2016 15:50
[2016-12-12 19:00] VITALS: BP 100/56
[2016-12-12] MEDS: ATORVASTATIN CALCIUM 40 MG TABLET. PO SCH (20:47)
[2016-12-12 23:00] VITALS: BP 107/56
[2016-12-13 03:00] VITALS: BP 102/56
[2016-12-13 05:26] LABS: BASO # 0.1 x10^3/uL (0.0-0.2); BASO % 1 % (0-3); EOS % 3 % (0-3); HEMATOCRIT 41.3 % (36.0-47.0); HEMOGLOBIN 13.6 g/dL (12.0-15.5); LYMPH # 2.2 x10^3/uL (1.0-4.8); LYMPH % 27 % (24-48); MEAN CORPUSCULAR HEMOGLOBIN 29 pg (25-35); MEAN CORPUSCULAR HGB CONC 33 g/dL (31-37); MEAN CORPUSCULAR VOLUME 87 fL (79-100); MONO % 9 % (0-9); NEUT % 61 % (31-73); PLATELET COUNT 173 x10^3/uL (140-400); RED BLOOD COUNT 4.75 x10^6/uL (3.50-5.40); RED CELL DISTRIBUTION WIDTH 15.4 % (11.5-14.5); WHITE BLOOD COUNT 8.2 x10^3/uL (4.0-11.0)
[2016-12-13 05:44] LABS: CALCIUM 9.1 mg/dL (8.5-10.1); CREATININE 1.1 mg/dL (0.6-1.0); GFR 57.3; POTASSIUM 4.8 mmol/L (3.5-5.1)
[2016-12-13 07:00] VITALS: BP 122/70
[2016-12-13 07:05] VITALS: BP 122/79
[2016-12-13] MEDS: CHLORDIAZEPOXIDE/CLIDINIUM 5MG/2.5MG CAPSULE. PO SCH (09:19)
[2016-12-13] MEDS: ASPIRIN ENTERIC COATED 81 MG TABLET.DR. PO SCH (09:19)
[2016-12-13] MEDS: DOCUSATE SODIUM 100 MG CAPSULE PO SCH (09:19)
[2016-12-13] MEDS: DICYCLOMINE HCL 10 MG CAPSULE PO SCH ×2 (09:19→14:51)
[2016-12-13] MEDS: CITALOPRAM 10 MG TABLET. PO SCH (09:19)
[2016-12-13] MEDS: POLYETHYLENE GLYCOL 3350 17 GM PACKET. PO SCH (09:20)
[2016-12-13] MEDS: HYDROCODONE/APAP 10/325 TABLET. PO PRN ×3 (09:20→14:51)
[2016-12-13] MEDS: NYSTATIN TOPICAL POWDER 15GM BOTTLE. TP SCH (09:20)
[2016-12-13] MEDS: LIDOCAINE (700MG/PATCH) PATCH. TD SCH (09:20)
--- NOTE | 2016-12-13 09:50 | PDOC ---
PULMONARY PROGRESS NOTES Vitals Vital Signs Date Time Temp Pulse Resp B/P Pulse Ox O2 Delivery O2 Flow Rate FiO2 12/13/16 07:00 97.5 16 122/70 92 Nasal Cannula 1.0 97.5 12/13/16 03:00 18 Lungs: Clear Labs Laboratory Tests Test 12/12/16 06:15 12/13/16 05:10 White Blood Count 8.8x10^3/uL (4.0-11.0) 8.2x10^3/uL (4.0-11.0) Red Blood Count 4.58x10^6/uL (3.50-5.40) 4.75x10^6/uL (3.50-5.40) Hemoglobin 13.0g/dL (12.0-15.5) 13.6g/dL (12.0-15.5) Hematocrit 41.1% (36.0-47.0) 41.3% (36.0-47.0) Mean Corpuscular Volume 90fL (79-100) 87fL (79-100) Mean Corpuscular Hemoglobin 28pg (25-35) 29pg (25-35) Mean Corpuscular Hemoglobin Concent 32g/dL (31-37) 33g/dL (31-37) Red Cell Distribution Width 15.5% (11.5-14.5) 15.4% (11.5-14.5) Platelet Count 146x10^3/uL (140-400) 173x10^3/uL (140-400) Neutrophils (%) (Auto) 64% (31-73) 61% (31-73) Lymphocytes (%) (Auto) 25% (24-48) 27% (24-48) Monocytes (%) (Auto) 8% (0-9) 9% (0-9) Eosinophils (%) (Auto) 2% (0-3) 3% (0-3) Basophils (%) (Auto) 1% (0-3) 1% (0-3) Neutrophils # (Auto) 5.6x10^3uL (1.8-7.7) 5.0x10^3uL (1.8-7.7) Lymphocytes # (Auto) 2.2x10^3/uL (1.0-4.8) 2.2x10^3/uL (1.0-4.8) Monocytes # (Auto) 0.7x10^3/uL (0.0-1.1) 0.7x10^3/uL (0.0-1.1) Eosinophils # (Auto) 0.2x10^3/uL (0.0-0.7) 0.2x10^3/uL (0.0-0.7) Basophils # (Auto) 0.1x10^3/uL (0.0-0.2) 0.1x10^3/uL (0.0-0.2) Sodium Level 144mmol/L (136-145) 143mmol/L (136-145) Potassium Level 4.7mmol/L (3.5-5.1) 4.8mmol/L (3.5-5.1) Chloride Level 105mmol/L (98-107) 103mmol/L (98-107) Carbon Dioxide Level 35mmol/L (21-32) 34mmol/L (21-32) Anion Gap 4 (6-14) 6 (6-14) Blood Urea Nitrogen 26mg/dL (7-20) 27mg/dL (7-20) Creatinine 1.1mg/dL (0.6-1.0) 1.1mg/dL (0.6-1.0) Estimated GFR (Cockcroft-Gault) 57.3 57.3 Glucose Level 98mg/dL (70-99) 98mg/dL (70-99) Calcium Level 9.0mg/dL (8.5-10.1) 9.1mg/dL (8.5-10.1) Laboratory Tests Test 12/13/16 05:10 White Blood Count 8.2x10^3/uL (4.0-11.0) Red Blood Count 4.75x10^6/uL (3.50-5.40) Hemoglobin 13.6g/dL (12.0-15.5) Hematocrit 41.3% (36.0-47.0) Mean Corpuscular Volume 87fL (79-100) Mean Corpuscular Hemoglobin 29pg (25-35) Mean Corpuscular Hemoglobin Concent 33g/dL (31-37) Red Cell Distribution Width 15.4% (11.5-14.5) Platelet Count 173x10^3/uL (140-400) Neutrophils (%) (Auto) 61% (31-73) Lymphocytes (%) (Auto) 27% (24-48) Monocytes (%) (Auto) 9% (0-9) Eosinophils (%) (Auto) 3% (0-3) Basophils (%) (Auto) 1% (0-3) Neutrophils # (Auto) 5.0x10^3uL (1.8-7.7) Lymphocytes # (Auto) 2.2x10^3/uL (1.0-4.8) Monocytes # (Auto) 0.7x10^3/uL (0.0-1.1) Eosinophils # (Auto) 0.2x10^3/uL (0.0-0.7) Basophils # (Auto) 0.1x10^3/uL (0.0-0.2) Sodium Level 143mmol/L (136-145) Potassium Level 4.8mmol/L (3.5-5.1) Chloride Level 103mmol/L (98-107) Carbon Dioxide Level 34mmol/L (21-32) Anion Gap 6 (6-14) Blood Urea Nitrogen 27mg/dL (7-20) Creatinine 1.1mg/dL (0.6-1.0) Estimated GFR (Cockcroft-Gault) 57.3 Glucose Level 98mg/dL (70-99) Calcium Level 9.1mg/dL (8.5-10.1) Medications Active Scripts Medications Dose Route/Sig Days Date Category Dose Instructions Crestor (Rosuvastatin Calcium) 20 Mg Tablet 20 Mg PO HS 04/01/16 Reported Gave last night Take tonight Miralax (Polyethylene Glycol 3350) 17 Gm Powd.pack 1 Pkt PO DAILY 04/01/16 Reported Take as needed daily for constipation Librax Capsule (Chlordiazepoxide/Clidinium Br) 1 Each Capsule 25 Cap PO DAILY 04/01/16 Reported Gave this morning Take tomorrow Tramadol Hcl 50 Mg Tablet 50 Mg PO PRN Q6HRS PRN 09/30/15 Reported Take as needed for pain Citalopram Hbr (Citalopram Hydrobromide) 10 Mg Tablet 10 Mg PO DAILY 09/30/15 Reported Gave this morning Take tomorrow Dicyclomine Hcl 20 Mg Tablet 20 Mg PO TID 09/30/15 Reported Gave this morning Take this afternoon and tonight Docusate Sodium 100 Mg Capsule 100 Mg PO PRN QHS PRN 09/30/15 Reported Take as needed for constipation Potassium Chloride 20 Meq Tab.er.prt 20 Meq PO 3X/WEEK 02/25/15 Reported Gave dose on MondayApril 01 continue normal schedule Colace (Docusate Sodium) 100 Mg Capsule 1 Cap PO DAILY 11/29/14 Reported Aspir 81 (Aspirin) 81 Mg Tablet. 81 Mg PO DAILY 12/27/13 Reported Gave this morning Take tomorrow Impression . 1. A 4-mm nodule seen in the right upper lobe and a tiny subpleural irregular opacity in the right lower lobe. This was seen on a thoracic spine CT. She has no tobacco history and as such, has very minimal risk of lung cancer. However, she has approximately 50-pound weight loss in the past one year, and a metastatic workup would be reasonable. I would obtain a full CT chest, abdomen, and pelvis. 2. Chronic respiratory failure, on home oxygen at 2 liters, being followed by my partner, Dr. Brito. 3. No significant history of tobacco use. Plan . RECOMMENDATIONS: 1. Obtain noncontrast CT chest, abdomen, and pelvis. 2. If there is no evidence of any metastatic disease, then she should have a followup CT chest in 4 to 6 months to make sure that the nodule is not increased in size. The patient is to follow with Dr. Brito in the office around that time. 3. Management of back pain per PCP. SHAN BRITO MD Dec 13, 2016 09:50
--- NOTE | 2016-12-13 10:08 | PDOC ---
PROGRESS NOTES Subjective Subjective She admits continued low back pain with movement but wants to go home. Objective Objective Vital Signs Date Time Temp Pulse Resp B/P Pulse Ox O2 Delivery O2 Flow Rate FiO2 12/13/16 08:00 Nasal Cannula 1.0 12/13/16 07:00 97.5 16 122/70 92 97.5 12/13/16 03:00 18 Intake and Output 12/13/16 07:00 Intake Total 1660 ml Output Total 1300 ml Balance 360 ml Intake Oral 1660 ml Output Urine Total 1300 ml # Voids 2 Physical Exam Physical Exam She needs help with donning and doffing back support brace and with it on she can get up and walk with roller walker. Assessment Assessment Problems Medical Problems: (1) Back pain Status: Acute (2) Concussion syndrome Status: Acute Plan Plan of Prison with home health follow up. Comment Review of Relevant I have reviewed the following items sahil (where applicable) has been applied. Labs Laboratory Tests Test 12/12/16 06:15 12/13/16 05:10 White Blood Count 8.8x10^3/uL (4.0-11.0) 8.2x10^3/uL (4.0-11.0) Red Blood Count 4.58x10^6/uL (3.50-5.40) 4.75x10^6/uL (3.50-5.40) Hemoglobin 13.0g/dL (12.0-15.5) 13.6g/dL (12.0-15.5) Hematocrit 41.1% (36.0-47.0) 41.3% (36.0-47.0) Mean Corpuscular Volume 90fL (79-100) 87fL (79-100) Mean Corpuscular Hemoglobin 28pg (25-35) 29pg (25-35) Mean Corpuscular Hemoglobin Concent 32g/dL (31-37) 33g/dL (31-37) Red Cell Distribution Width 15.5% (11.5-14.5) 15.4% (11.5-14.5) Platelet Count 146x10^3/uL (140-400) 173x10^3/uL (140-400) Neutrophils (%) (Auto) 64% (31-73) 61% (31-73) Lymphocytes (%) (Auto) 25% (24-48) 27% (24-48) Monocytes (%) (Auto) 8% (0-9) 9% (0-9) Eosinophils (%) (Auto) 2% (0-3) 3% (0-3) Basophils (%) (Auto) 1% (0-3) 1% (0-3) Neutrophils # (Auto) 5.6x10^3uL (1.8-7.7) 5.0x10^3uL (1.8-7.7) Lymphocytes # (Auto) 2.2x10^3/uL (1.0-4.8) 2.2x10^3/uL (1.0-4.8) Monocytes # (Auto) 0.7x10^3/uL (0.0-1.1) 0.7x10^3/uL (0.0-1.1) Eosinophils # (Auto) 0.2x10^3/uL (0.0-0.7) 0.2x10^3/uL (0.0-0.7) Basophils # (Auto) 0.1x10^3/uL (0.0-0.2) 0.1x10^3/uL (0.0-0.2) Sodium Level 144mmol/L (136-145) 143mmol/L (136-145) Potassium Level 4.7mmol/L (3.5-5.1) 4.8mmol/L (3.5-5.1) Chloride Level 105mmol/L (98-107) 103mmol/L (98-107) Carbon Dioxide Level 35mmol/L (21-32) 34mmol/L (21-32) Anion Gap 4 (6-14) 6 (6-14) Blood Urea Nitrogen 26mg/dL (7-20) 27mg/dL (7-20) Creatinine 1.1mg/dL (0.6-1.0) 1.1mg/dL (0.6-1.0) Estimated GFR (Cockcroft-Gault) 57.3 57.3 Glucose Level 98mg/dL (70-99) 98mg/dL (70-99) Calcium Level 9.0mg/dL (8.5-10.1) 9.1mg/dL (8.5-10.1) Laboratory Tests Test 12/13/16 05:10 White Blood Count 8.2x10^3/uL (4.0-11.0) Red Blood Count 4.75x10^6/uL (3.50-5.40) Hemoglobin 13.6g/dL (12.0-15.5) Hematocrit 41.3% (36.0-47.0) Mean Corpuscular Volume 87fL (79-100) Mean Corpuscular Hemoglobin 29pg (25-35) Mean Corpuscular Hemoglobin Concent 33g/dL (31-37) Red Cell Distribution Width 15.4% (11.5-14.5) Platelet Count 173x10^3/uL (140-400) Neutrophils (%) (Auto) 61% (31-73) Lymphocytes (%) (Auto) 27% (24-48) Monocytes (%) (Auto) 9% (0-9) Eosinophils (%) (Auto) 3% (0-3) Basophils (%) (Auto) 1% (0-3) Neutrophils # (Auto) 5.0x10^3uL (1.8-7.7) Lymphocytes # (Auto) 2.2x10^3/uL (1.0-4.8) Monocytes # (Auto) 0.7x10^3/uL (0.0-1.1) Eosinophils # (Auto) 0.2x10^3/uL (0.0-0.7) Basophils # (Auto) 0.1x10^3/uL (0.0-0.2) Sodium Level 143mmol/L (136-145) Potassium Level 4.8mmol/L (3.5-5.1) Chloride Level 103mmol/L (98-107) Carbon Dioxide Level 34mmol/L (21-32) Anion Gap 6 (6-14) Blood Urea Nitrogen 27mg/dL (7-20) Creatinine 1.1mg/dL (0.6-1.0) Estimated GFR (Cockcroft-Gault) 57.3 Glucose Level 98mg/dL (70-99) Calcium Level 9.1mg/dL (8.5-10.1) Medications Current Medications Fentanyl Citrate (Fentanyl 2ml Vial) 25 mcg PRN Q15MIN PRN IV PAIN GREATER THAN 3/10 Last administered on 12/09/16 19:40; Start 12/09/16 at 19:15; Stop at 19:14; Status DC Ondansetron HCl (Zofran) 4 mg PRN Q8HRS PRN IV NAUSEA/VOMITING; Start 12/09/16 at 21:30; Stop 12/10/16 at 21:29; Status DC Morphine Sulfate 2 mg PRN Q2HR PRN IV PAIN Last administered on 12/09/16 22:01 ; Start 12/09/16 at 21:30; Stop 12/09/16 at 22:22; Status DC Acetaminophen (Tylenol) 650 mg PRN Q4HRS PRN PO FEVER; Start 12/09/16 at 21:30 ; Stop 12/10/16 at 21:29; Status DC Aspirin (Ecotrin) 81 mg DAILY PO Last administered on 12/13/16 09:19; Start at 09:00 Chlordiazepoxide/ Clidinium (Librax) 1 cap DAILY PO Last administered on 09:19; Start 12/10/16 at 09:00 Citalopram Hydrobromide (Celexa) 10 mg DAILY PO Last administered on 12/13/16 09:19; Start 12/10/16 at 09:00 Docusate Sodium (Colace) 100 mg PRN QHS PRN PO CONSTIPATION Last administered on 12/11/16 18:35; Start 12/09/16 at 22:30 Docusate Sodium (Colace) 100 mg DAILY PO Last administered on 12/13/16 09:19; Start 12/10/16 at 09:00 Polyethylene Glycol (miraLAX PACKET) 17 gm DAILY PO Last administered on 09:20; Start 12/10/16 at 09:00 Potassium Chloride (Klor-Con) 20 meq 3X/WEEK PO Last administered on 12/12/16 09:56; Start 12/12/16 at 09:00 Dicyclomine HCl (Bentyl) 20 mg TID PO Last administered on 12/13/16 09:19; Start 12/10/16 at 09:00 Atorvastatin Calcium (Lipitor) 80 mg HS PO FOR CHOLESTEROL Last administered on 12/12/16 20:47; Start 12/10/16 at 21:00 Morphine Sulfate 4 mg PRN Q2HR PRN IV PAIN Last administered on 12/10/16 03:54 ; Start 12/09/16 at 22:30 Oxycodone/ Acetaminophen (Percocet 5/325) 1 tab PRN Q4HRS PRN PO PAIN Last administered on 12/10/16 08:16; Start 12/09/16 at 22:30; Stop 12/10/16 at 13:09 ; Status DC Lidocaine (Lidoderm) 1 patch DAILY TD Last administered on 12/13/16 09:20; Start 12/09/16 at 22:45 Cyclobenzaprine HCl (Flexeril) 10 mg PRN Q6HRS PRN PO MUSCLE SPASMS Last administered on 12/12/16 09:59; Start 12/09/16 at 22:30 Fluconazole (Diflucan) 150 mg 1X ONCE PO Last administered on 12/10/16 12:11 ; Start 12/10/16 at 12:00; Stop 12/10/16 at 12:01; Status DC Methylprednisolone Acetate (Depo-Medrol 40mg Vial) 40 mg 1X ONCE IM Last administered on 12/10/16 12:12; Start 12/10/16 at 12:00; Stop 12/10/16 at 12:01 ; Status DC Methylprednisolone Acetate (Depo-Medrol 40mg Vial) 40 mg 1X ONCE IM ; Start 08/18 at 12:00; Stop 12/10/16 at 12:01; Status DC Bupivacaine HCl (Sensorcaine-Mpf 0.25%) 10 ml 1X ONCE IJ Last administered on 12/10/16 12:14; Start 12/10/16 at 12:00; Stop 12/10/16 at 12:01; Status DC Acetaminophen/ Hydrocodone Bitart (Lortab 10/325) 1 tab PRN Q6HRS PRN PO MODERATE - SEVERE PAIN Last administered on 12/13/16 09:20; Start 12/10/16 at 11:30 Acetaminophen (Tylenol) 650 mg PRN Q6HRS PRN PO MILD PAIN / TEMP; Start at 14:45 Ondansetron HCl (Zofran) 4 mg PRN Q6HRS PRN IV NAUSEA/VOMITING; Start 12/10/16 at 14:45 Iohexol (Omnipaque 240 Mg/ml) 50 ml 1X ONCE PO Last administered on 12/11/16 11:15; Start 12/11/16 at 11:15; Stop 12/11/16 at 11:16; Status DC Magnesium Hydroxide (Milk Of Magnesia) 2,400 mg PRN BID PRN PO CONSTIPATION Last administered on 12/11/16 19:01; Start 12/11/16 at 19:00 Nystatin (Nystop) 1 lino BID TP Last administered on 12/13/16 09:20; Start at 09:00 Active Scripts Active Reported Crestor (Rosuvastatin Calcium) 20 Mg Tablet 20 Mg PO HS Gave last night Take tonight Miralax (Polyethylene Glycol 3350) 17 Gm Powd.pack 1 Pkt PO DAILY Take as needed daily for constipation Librax Capsule (Chlordiazepoxide/Clidinium Br) 1 Each Capsule 25 Cap PO DAILY Gave this morning Take tomorrow Tramadol Hcl 50 Mg Tablet 50 Mg PO PRN Q6HRS PRN Take as needed for pain Citalopram Hbr (Citalopram Hydrobromide) 10 Mg Tablet 10 Mg PO DAILY Gave this morning Take tomorrow Dicyclomine Hcl 20 Mg Tablet 20 Mg PO TID Gave this morning Take this afternoon and tonight Docusate Sodium 100 Mg Capsule 100 Mg PO PRN QHS PRN Take as needed for constipation Potassium Chloride 20 Meq Tab.er.prt 20 Meq PO 3X/WEEK Gave dose on MondayApril 01 continue normal schedule Colace (Docusate Sodium) 100 Mg Capsule 1 Cap PO DAILY Aspir 81 (Aspirin) 81 Mg Tablet.dr 81 Mg PO DAILY Gave this morning Take tomorrow Vitals/I & O Vital Sign - Last 24 Hours 12/12/16 12/12/16 12/12/16 12/12/16 15:00 19:00 20:00 23:00 Temp 97.9 97.1 97.4 97.9 97.1 97.4 Pulse 68 69 65 Resp 22 18 18 B/P 114/66 100/56 107/56 Pulse Ox 98 97 97 O2 Delivery Room Air Nasal Cannula Nasal Cannula Nasal Cannula O2 Flow Rate 1.0 1.0 1.0 12/13/16 12/13/16 12/13/1612/13/17 00:00 03:00 07:00 08:00 Temp 97.9 97.5 97.9 97.5 Pulse 58 16 Resp 18 B/P 102/56 122/70 Pulse Ox 97 94 92 O2 Delivery Nasal Cannula Nasal Cannula Nasal Cannula Nasal Cannula O2 Flow Rate 1.0 1.0 1.0 1.0 Intake and Output 12/12/16 12/12/16 12/13/16 15:00 23:00 07:00 Intake Total 360 ml 1300 ml Output Total 1300 ml 0 ml Balance 360 ml 0 ml 0 ml IMAN MICHAELS MD Dec 13, 2016 10:08
[2016-12-13 11:00] VITALS: BP 113/69
--- NOTE | 2016-12-13 11:19 | PDOC ---
PROGRESS NOTES Chief Complaint Chief Complaint - acute on chronic back pain post fall, unable to transfer or walk - concussion, minor, asymptomatic - T 2 diabetes melitis - h/o CAD, s/p LA X5 - DEON; 2 liters at baseline - obesity BMI 38 - CKD3 - vaginitis with itchiness, no discharge - R lung 4mm nodule on CT, follow up as outpatient History of Present Illness History of Present Illness No acute events overnight. Patient is laying in bed without distress. She continues to have mild pain that is controlled. CT chest, abdomen and pelvis yesterday revealed no metastasis. She is agreeable to SNU following discharge. Vitals Vitals Vital Signs Date Time Temp Pulse Resp B/P Pulse Ox O2 Delivery O2 Flow Rate FiO2 12/13/16 11:00 97.6 74 16 113/69 98 Nasal Cannula 1.0 97.6 Physical Exam General: Alert, Oriented X3, Cooperative, No acute distress Heart: Regular rate, Normal S1, Normal S2 Lungs: Clear, Other (no wheezing) Abdomen: Soft, No tenderness Extremities: No cyanosis Skin: No rashes, No significant lesion Labs LABS Laboratory Tests Test 12/13/16 05:10 White Blood Count 8.2x10^3/uL (4.0-11.0) Red Blood Count 4.75x10^6/uL (3.50-5.40) Hemoglobin 13.6g/dL (12.0-15.5) Hematocrit 41.3% (36.0-47.0) Mean Corpuscular Volume 87fL (79-100) Mean Corpuscular Hemoglobin 29pg (25-35) Mean Corpuscular Hemoglobin Concent 33g/dL (31-37) Red Cell Distribution Width 15.4% (11.5-14.5) Platelet Count 173x10^3/uL (140-400) Neutrophils (%) (Auto) 61% (31-73) Lymphocytes (%) (Auto) 27% (24-48) Monocytes (%) (Auto) 9% (0-9) Eosinophils (%) (Auto) 3% (0-3) Basophils (%) (Auto) 1% (0-3) Neutrophils # (Auto) 5.0x10^3uL (1.8-7.7) Lymphocytes # (Auto) 2.2x10^3/uL (1.0-4.8) Monocytes # (Auto) 0.7x10^3/uL (0.0-1.1) Eosinophils # (Auto) 0.2x10^3/uL (0.0-0.7) Basophils # (Auto) 0.1x10^3/uL (0.0-0.2) Sodium Level 143mmol/L (136-145) Potassium Level 4.8mmol/L (3.5-5.1) Chloride Level 103mmol/L (98-107) Carbon Dioxide Level 34mmol/L (21-32) Anion Gap 6 (6-14) Blood Urea Nitrogen 27mg/dL (7-20) Creatinine 1.1mg/dL (0.6-1.0) Estimated GFR (Cockcroft-Gault) 57.3 Glucose Level 98mg/dL (70-99) Calcium Level 9.1mg/dL (8.5-10.1) Review of Systems Review of Systems Denies chest pain and shortness of breath. Denies fever and chills. Assessment and Plan Assessmemt and Plan Problems Medical Problems: (1) Back pain Status: Acute (2) Concussion syndrome Status: Acute ASSESSMENT: - acute on chronic back pain post fall, unable to transfer or walk - concussion, minor, asymptomatic - T 2 diabetes melitis - h/o CAD, s/p [place] X5 - DEON; 2 liters at baseline - obesity BMI 38 - CKD3 - vaginitis with itchiness, no discharge - R lung 4mm nodule on CT, f/u as outpatient, not likely malignancy PLAN: Pulmonology is following, recommendations are appreciated No evidence of metastasis on CT chest, abdomen and pelvis - follow up with pulmonology as outpatient for surveillance of pulmonary nodule Continue to monitor daily labs Continue PT/OT treatment Probable discharge to SNU today. Problems: Comment Review of Relevant I have reviewed the following items sahil (where applicable) has been applied. Labs Laboratory Tests Test 12/12/16 06:15 12/13/16 05:10 White Blood Count 8.8x10^3/uL (4.0-11.0) 8.2x10^3/uL (4.0-11.0) Red Blood Count 4.58x10^6/uL (3.50-5.40) 4.75x10^6/uL (3.50-5.40) Hemoglobin 13.0g/dL (12.0-15.5) 13.6g/dL (12.0-15.5) Hematocrit 41.1% (36.0-47.0) 41.3% (36.0-47.0) Mean Corpuscular Volume 90fL (79-100) 87fL (79-100) Mean Corpuscular Hemoglobin 28pg (25-35) 29pg (25-35) Mean Corpuscular Hemoglobin Concent 32g/dL (31-37) 33g/dL (31-37) Red Cell Distribution Width 15.5% (11.5-14.5) 15.4% (11.5-14.5) Platelet Count 146x10^3/uL (140-400) 173x10^3/uL (140-400) Neutrophils (%) (Auto) 64% (31-73) 61% (31-73) Lymphocytes (%) (Auto) 25% (24-48) 27% (24-48) Monocytes (%) (Auto) 8% (0-9) 9% (0-9) Eosinophils (%) (Auto) 2% (0-3) 3% (0-3) Basophils (%) (Auto) 1% (0-3) 1% (0-3) Neutrophils # (Auto) 5.6x10^3uL (1.8-7.7) 5.0x10^3uL (1.8-7.7) Lymphocytes # (Auto) 2.2x10^3/uL (1.0-4.8) 2.2x10^3/uL (1.0-4.8) Monocytes # (Auto) 0.7x10^3/uL (0.0-1.1) 0.7x10^3/uL (0.0-1.1) Eosinophils # (Auto) 0.2x10^3/uL (0.0-0.7) 0.2x10^3/uL (0.0-0.7) Basophils # (Auto) 0.1x10^3/uL (0.0-0.2) 0.1x10^3/uL (0.0-0.2) Sodium Level 144mmol/L (136-145) 143mmol/L (136-145) Potassium Level 4.7mmol/L (3.5-5.1) 4.8mmol/L (3.5-5.1) Chloride Level 105mmol/L (98-107) 103mmol/L (98-107) Carbon Dioxide Level 35mmol/L (21-32) 34mmol/L (21-32) Anion Gap 4 (6-14) 6 (6-14) Blood Urea Nitrogen 26mg/dL (7-20) 27mg/dL (7-20) Creatinine 1.1mg/dL (0.6-1.0) 1.1mg/dL (0.6-1.0) Estimated GFR (Cockcroft-Gault) 57.3 57.3 Glucose Level 98mg/dL (70-99) 98mg/dL (70-99) Calcium Level 9.0mg/dL (8.5-10.1) 9.1mg/dL (8.5-10.1) Laboratory Tests Test 12/13/16 05:10 White Blood Count 8.2x10^3/uL (4.0-11.0) Red Blood Count 4.75x10^6/uL (3.50-5.40) Hemoglobin 13.6g/dL (12.0-15.5) Hematocrit 41.3% (36.0-47.0) Mean Corpuscular Volume 87fL (79-100) Mean Corpuscular Hemoglobin 29pg (25-35) Mean Corpuscular Hemoglobin Concent 33g/dL (31-37) Red Cell Distribution Width 15.4% (11.5-14.5) Platelet Count 173x10^3/uL (140-400) Neutrophils (%) (Auto) 61% (31-73) Lymphocytes (%) (Auto) 27% (24-48) Monocytes (%) (Auto) 9% (0-9) Eosinophils (%) (Auto) 3% (0-3) Basophils (%) (Auto) 1% (0-3) Neutrophils # (Auto) 5.0x10^3uL (1.8-7.7) Lymphocytes # (Auto) 2.2x10^3/uL (1.0-4.8) Monocytes # (Auto) 0.7x10^3/uL (0.0-1.1) Eosinophils # (Auto) 0.2x10^3/uL (0.0-0.7) Basophils # (Auto) 0.1x10^3/uL (0.0-0.2) Sodium Level 143mmol/L (136-145) Potassium Level 4.8mmol/L (3.5-5.1) Chloride Level 103mmol/L (98-107) Carbon Dioxide Level 34mmol/L (21-32) Anion Gap 6 (6-14) Blood Urea Nitrogen 27mg/dL (7-20) Creatinine 1.1mg/dL (0.6-1.0) Estimated GFR (Cockcroft-Gault) 57.3 Glucose Level 98mg/dL (70-99) Calcium Level 9.1mg/dL (8.5-10.1) Medications Current Medications Fentanyl Citrate (Fentanyl 2ml Vial) 25 mcg PRN Q15MIN PRN IV PAIN GREATER THAN 3/10 Last administered on 12/09/16 19:40; Start 12/09/16 at 19:15; Stop at 19:14; Status DC Ondansetron HCl (Zofran) 4 mg PRN Q8HRS PRN IV NAUSEA/VOMITING; Start 12/09/16 at 21:30; Stop 12/10/16 at 21:29; Status DC Morphine Sulfate 2 mg PRN Q2HR PRN IV PAIN Last administered on 12/09/16 22:01 ; Start 12/09/16 at 21:30; Stop 12/09/16 at 22:22; Status DC Acetaminophen (Tylenol) 650 mg PRN Q4HRS PRN PO FEVER; Start 12/09/16 at 21:30 ; Stop 12/10/16 at 21:29; Status DC Aspirin (Ecotrin) 81 mg DAILY PO Last administered on 12/13/16 09:19; Start at 09:00 Chlordiazepoxide/ Clidinium (Librax) 1 cap DAILY PO Last administered on 09:19; Start 12/10/16 at 09:00 Citalopram Hydrobromide (Celexa) 10 mg DAILY PO Last administered on 12/13/16 09:19; Start 12/10/16 at 09:00 Docusate Sodium (Colace) 100 mg PRN QHS PRN PO CONSTIPATION Last administered on 12/11/16 18:35; Start 12/09/16 at 22:30 Docusate Sodium (Colace) 100 mg DAILY PO Last administered on 12/13/16 09:19; Start 12/10/16 at 09:00 Polyethylene Glycol (miraLAX PACKET) 17 gm DAILY PO Last administered on 09:20; Start 12/10/16 at 09:00 Potassium Chloride (Klor-Con) 20 meq 3X/WEEK PO Last administered on 12/12/16 09:56; Start 12/12/16 at 09:00 Dicyclomine HCl (Bentyl) 20 mg TID PO Last administered on 12/13/16 09:19; Start 12/10/16 at 09:00 Atorvastatin Calcium (Lipitor) 80 mg HS PO FOR CHOLESTEROL Last administered on 12/12/16 20:47; Start 12/10/16 at 21:00 Morphine Sulfate 4 mg PRN Q2HR PRN IV PAIN Last administered on 12/10/16 03:54 ; Start 12/09/16 at 22:30 Oxycodone/ Acetaminophen (Percocet 5/325) 1 tab PRN Q4HRS PRN PO PAIN Last administered on 12/10/16 08:16; Start 12/09/16 at 22:30; Stop 12/10/16 at 13:09 ; Status DC Lidocaine (Lidoderm) 1 patch DAILY TD Last administered on 12/13/16 09:20; Start 12/09/16 at 22:45 Cyclobenzaprine HCl (Flexeril) 10 mg PRN Q6HRS PRN PO MUSCLE SPASMS Last administered on 12/12/16 09:59; Start 12/09/16 at 22:30 Fluconazole (Diflucan) 150 mg 1X ONCE PO Last administered on 12/10/16 12:11 ; Start 12/10/16 at 12:00; Stop 12/10/16 at 12:01; Status DC Methylprednisolone Acetate (Depo-Medrol 40mg Vial) 40 mg 1X ONCE IM Last administered on 12/10/16 12:12; Start 12/10/16 at 12:00; Stop 12/10/16 at 12:01 ; Status DC Methylprednisolone Acetate (Depo-Medrol 40mg Vial) 40 mg 1X ONCE IM ; Start 08/18 at 12:00; Stop 12/10/16 at 12:01; Status DC Bupivacaine HCl (Sensorcaine-Mpf 0.25%) 10 ml 1X ONCE IJ Last administered on 12/10/16 12:14; Start 12/10/16 at 12:00; Stop 12/10/16 at 12:01; Status DC Acetaminophen/ Hydrocodone Bitart (Lortab 10/325) 1 tab PRN Q6HRS PRN PO MODERATE - SEVERE PAIN Last administered on 12/13/16 09:20; Start 12/10/16 at 11:30 Acetaminophen (Tylenol) 650 mg PRN Q6HRS PRN PO MILD PAIN / TEMP; Start at 14:45 Ondansetron HCl (Zofran) 4 mg PRN Q6HRS PRN IV NAUSEA/VOMITING; Start 12/10/16 at 14:45 Iohexol (Omnipaque 240 Mg/ml) 50 ml 1X ONCE PO Last administered on 12/11/16 11:15; Start 12/11/16 at 11:15; Stop 12/11/16 at 11:16; Status DC Magnesium Hydroxide (Milk Of Magnesia) 2,400 mg PRN BID PRN PO CONSTIPATION Last administered on 12/11/16 19:01; Start 12/11/16 at 19:00 Nystatin (Nystop) 1 lino BID TP Last administered on 12/13/16 09:20; Start at 09:00 Active Scripts Active Reported Crestor (Rosuvastatin Calcium) 20 Mg Tablet 20 Mg PO HS Gave last night Take tonight Miralax (Polyethylene Glycol 3350) 17 Gm Powd.pack 1 Pkt PO DAILY Take as needed daily for constipation Librax Capsule (Chlordiazepoxide/Clidinium Br) 1 Each Capsule 25 Cap PO DAILY Gave this morning Take tomorrow Tramadol Hcl 50 Mg Tablet 50 Mg PO PRN Q6HRS PRN Take as needed for pain Citalopram Hbr (Citalopram Hydrobromide) 10 Mg Tablet 10 Mg PO DAILY Gave this morning Take tomorrow Dicyclomine Hcl 20 Mg Tablet 20 Mg PO TID Gave this morning Take this afternoon and tonight Docusate Sodium 100 Mg Capsule 100 Mg PO PRN QHS PRN Take as needed for constipation Potassium Chloride 20 Meq Tab.er.prt 20 Meq PO 3X/WEEK Gave dose on MondayApril 01 continue normal schedule Colace (Docusate Sodium) 100 Mg Capsule 1 Cap PO DAILY Aspir 81 (Aspirin) 81 Mg Tablet.dr 81 Mg PO DAILY Gave this morning Take tomorrow Vitals/I & O Vital Sign - Last 24 Hours 12/12/16 12/12/16 12/12/16 12/12/16 15:00 19:00 20:00 23:00 Temp 97.9 97.1 97.4 97.9 97.1 97.4 Pulse 68 69 65 Resp 22 18 18 B/P 114/66 100/56 107/56 Pulse Ox 98 97 97 O2 Delivery Room Air Nasal Cannula Nasal Cannula Nasal Cannula O2 Flow Rate 1.0 1.0 1.0 12/13/16 12/13/16 12/13/16 12/13/16 00:00 03:00 07:05 08:00 Temp 97.9 97.5 97.9 97.5 Pulse 58 72 Resp 18 16 B/P 102/56 122/79 Pulse Ox 97 94 92 O2 Delivery Nasal Cannula Nasal Cannula Nasal Cannula Nasal Cannula O2 Flow Rate 1.0 1.0 2.0 1.0 12/13/16 11:00 Temp 97.6 97.6 Pulse 74 Resp 16 B/P 113/69 Pulse Ox 98 O2 Delivery Nasal Cannula O2 Flow Rate 1.0 Intake and Output 12/12/16 12/12/16 12/13/16 15:00 23:00 07:00 Intake Total 360 ml 1300 ml Output Total 1300 ml 0 ml Balance 360 ml 0 ml 0 ml CASTLE,NIAL K III DO Dec 13, 2016 11:19
== END 2016-12-13 15:02 | disposition home health service (06) | DRG 552 ==
LOC: ER 18:42 → 5 SOUTH 20:30
PROVIDERS: ADMIT Internal Medicine; ATTEND Internal Medicine
DX: M51.16 Intervertebral disc disorders with radiculopathy, lumbar region (principal); J96.10 Chronic respiratory failure, unspecified whether with hypoxia or hypercapnia; I13.0 Hypertensive heart and chronic kidney disease with heart failure and stage 1 through stage 4 chronic kidney disease, or unspecified chronic kidney disease; F07.81 Postconcussional syndrome; S23.3XXA Sprain of ligaments of thoracic spine, initial encounter; N76.0 Acute vaginitis; W01.0XXA Fall on same level from slipping, tripping and stumbling without subsequent striking against object, initial encounter; E11.22 Type 2 diabetes mellitus with diabetic chronic kidney disease; E66.9 Obesity, unspecified; E78.00 Pure hypercholesterolemia, unspecified; G47.33 Obstructive sleep apnea (adult) (pediatric); E78.5 Hyperlipidemia, unspecified; G89.29 Other chronic pain; I25.10 Atherosclerotic heart disease of native coronary artery without angina pectoris; I50.9 Heart failure, unspecified; M76.9 Unspecified enthesopathy, lower limb, excluding foot; J44.9 Chronic obstructive pulmonary disease, unspecified; K21.9 Gastro-esophageal reflux disease without esophagitis; M17.0 Bilateral primary osteoarthritis of knee; F41.9 Anxiety disorder, unspecified; M19.90 Unspecified osteoarthritis, unspecified site; N18.3 Chronic kidney disease, stage 3 (moderate); Z82.49 Family history of ischemic heart disease and other diseases of the circulatory system; Z68.38 Body mass index [BMI] 38.0-38.9, adult; Z90.49 Acquired absence of other specified parts of digestive tract; Z98.61 Coronary angioplasty status; I25.2 Old myocardial infarction; Z83.3 Family history of diabetes mellitus; Y93.89 Activity, other specified; Y92.098 Other place in other non-institutional residence as the place of occurrence of the external cause; Y99.8 Other external cause status; Z99.81 Dependence on supplemental oxygen; Z90.710 Acquired absence of both cervix and uterus; Z79.899 Other long term (current) drug therapy; Z79.82 Long term (current) use of aspirin; Z88.5 Allergy status to narcotic agent
CPT/HCPCS: 36415; 70450; 71250; 72125; 72128; 72131; 72148; 74176; 80048; 85027; 93005; 96374; J1030; J2270; J3010; J3490; Q9966; 97116; 97530; 99285-25

== ENCOUNTER 2017-10-20 10:29 | Emergency (ER) | payer MEDICARE ==
[2017-10-20 12:07] LABS: ADD MAN DIFF? NO
[2017-10-20 12:15] LABS: BASO # 0.1 x10^3/uL (0.0-0.2); BASO % 1 % (0-3); EOS # 0.4 x10^3/uL (0.0-0.7); EOS % 5 % (0-3); HEMATOCRIT 42.4 % (36.0-47.0); HEMOGLOBIN 13.6 g/dL (12.0-15.5); LYMPH # 1.6 x10^3/uL (1.0-4.8); LYMPH % 20 % (24-48); MEAN CORPUSCULAR HEMOGLOBIN 30 pg (25-35); MEAN CORPUSCULAR HGB CONC 32 g/dL (31-37); MEAN CORPUSCULAR VOLUME 92 fL (79-100); MONO # 0.7 x10^3/uL (0.0-1.1); MONO % 9 % (0-9); NEUT # 5.2 x10^3uL (1.8-7.7); NEUT % 65 % (31-73); PLATELET COUNT 177 x10^3/uL (140-400); RED BLOOD COUNT 4.61 x10^6/uL (3.50-5.40); RED CELL DISTRIBUTION WIDTH 15.7 % (11.5-14.5); WHITE BLOOD COUNT 7.9 x10^3/uL (4.0-11.0)
[2017-10-20 12:29] LABS: ANION GAP 8 (6-14); BLOOD UREA NITROGEN 18 mg/dL (7-20); CALCIUM 8.9 mg/dL (8.5-10.1); CARBON DIOXIDE 34 mmol/L (21-32); CHLORIDE 105 mmol/L (98-107); CREATININE 1.1 mg/dL (0.6-1.0); GFR 57.1; GLUCOSE 106 mg/dL (70-99); SODIUM 147 mmol/L (136-145)
[2017-10-20 12:32] LABS: BILIRUBIN,URINE MODERATE (NEG); CLARITY,URINE CLOUDY; COLOR,URINE AMBER; GLUCOSE,URINE NEGATIVE (NEG); NITRITE,URINE NEGATIVE (NEG); PROTEIN,URINE 30 mg/dL (NEG-TRACE)
[2017-10-20 12:34] LABS: ALBUMIN 3.4 g/dL (3.4-5.0); ALK PHOS 113 U/L (46-116); ALT (SGPT) 17 U/L (14-59); AST (SGOT) 18 U/L (15-37); BARBITURATES NEG (NEG); BENZODIAZEPINES POS (NEG); CANNABINOIDS NEG (NEG); COCAINE NEG (NEG); DIRECT BILIRUBIN 0.1 mg/dL (0.0-0.2); MAGNESIUM 2.3 mg/dL (1.8-2.4); METHADONE NEG (NEG); OPIATES NEG (NEG); PHENCYCLIDINE NEG (NEG); TOTAL BILIRUBIN 0.5 mg/dL (0.2-1.0); TOTAL PROTEIN 7.5 g/dL (6.4-8.2)
[2017-10-20 12:36] LABS: AMPHETAMINE/METHAMPHETAMINE NEG (NEG); ETHANOL, URINE NEG (NEG)
[2017-10-20 12:37] LABS: TROPONINI < 0.017 ng/mL (0.000-0.055)
[2017-10-20 12:42] LABS: CKMB MASS 0.7 ng/mL (0.0-3.6); CREATINE KINASE 56 U/L (26-192)
[2017-10-20 12:42] LABS: NT-PRO BNP 108 pg/mL (0-449)
[2017-10-20 12:46] LABS: SQUAMOUS EPITHELIAL CELL,UR MANY /LPF
[2017-10-20 12:47] LABS: BACTERIA,URINE MODERATE /HPF (0-FEW); RBC,URINE OCC /HPF (0-2)
[2017-10-20] MEDS: methylPREDNISolone SOD SUCC PF 125 MG/2 ML VIAL. IV (13:13)
[2017-10-20] MEDS: IPRATRPIUM/ALBUTEROL 0.5/2.5MG 3 ML NEBU. NEB (13:24)
== END 2017-10-20 14:24 | disposition home or self-care (01) ==
LOC: ER 10:29
DX: J44.1 Chronic obstructive pulmonary disease with (acute) exacerbation (principal); E78.00 Pure hypercholesterolemia, unspecified; Z95.5 Presence of coronary angioplasty implant and graft; I25.10 Atherosclerotic heart disease of native coronary artery without angina pectoris; I25.2 Old myocardial infarction; Z88.5 Allergy status to narcotic agent
CPT/HCPCS: 36415; 71045; 80048; 80076; 80307; 81001; 82553; 83735; 83880; 84484; 85025; 87086; 93005; 94640; 96374; 99285-25; J2930; J7620

== ENCOUNTER 2017-12-18 07:09 | Emergency (ER) | payer MEDICARE ==
[2017-12-18 07:57] LABS: BILIRUBIN,URINE SMALL (NEG); CLARITY,URINE CLOUDY; COLOR,URINE AMBER; GLUCOSE,URINE NEGATIVE (NEG); NITRITE,URINE NEGATIVE (NEG); PH,URINE 5.5; PROTEIN,URINE NEGATIVE (NEG-TRACE)
[2017-12-18 07:58] LABS: BACTERIA,URINE FEW /HPF (0-FEW); RBC,URINE 0 /HPF (0-2); SQUAMOUS EPITHELIAL CELL,UR MANY /LPF
[2017-12-18 07:59] LABS: ADD MAN DIFF? NO
[2017-12-18] MEDS: ONDANSETRON PF 4 MG/2 ML VIAL. IV (07:59)
[2017-12-18] MEDS: ALPRAZolam 0.5 MG TABLET PO (07:59)
[2017-12-18 08:03] LABS: BASO # 0.1 x10^3/uL (0.0-0.2); BASO % 1 % (0-3); EOS # 0.2 x10^3/uL (0.0-0.7); EOS % 3 % (0-3); HEMATOCRIT 41.2 % (36.0-47.0); HEMOGLOBIN 13.4 g/dL (12.0-15.5); LYMPH # 1.7 x10^3/uL (1.0-4.8); LYMPH % 22 % (24-48); MEAN CORPUSCULAR HEMOGLOBIN 30 pg (25-35); MEAN CORPUSCULAR HGB CONC 33 g/dL (31-37); MEAN CORPUSCULAR VOLUME 91 fL (79-100); MONO # 0.7 x10^3/uL (0.0-1.1); MONO % 9 % (0-9); NEUT % 66 % (31-73); PLATELET COUNT 178 x10^3/uL (140-400); RED BLOOD COUNT 4.55 x10^6/uL (3.50-5.40); RED CELL DISTRIBUTION WIDTH 15.1 % (11.5-14.5); WHITE BLOOD COUNT 7.7 x10^3/uL (4.0-11.0)
[2017-12-18 08:12] LABS: ANION GAP 10 (6-14); BLOOD UREA NITROGEN 14 mg/dL (7-20); BUN/CREATININE RATIO 14 (6-20); CALCIUM 9.3 mg/dL (8.5-10.1); CARBON DIOXIDE 29 mmol/L (21-32); CHLORIDE 105 mmol/L (98-107); GFR 63.8; GLUCOSE 128 mg/dL (70-99); POTASSIUM 3.6 mmol/L (3.5-5.1); SODIUM 144 mmol/L (136-145)
[2017-12-18 08:18] LABS: ALBUMIN 3.4 g/dL (3.4-5.0); ALBUMIN/GLOBULIN RATIO 0.8 (1.0-1.7); ALK PHOS 143 U/L (46-116); ALT (SGPT) 49 U/L (14-59); AST (SGOT) 43 U/L (15-37); LIPASE 78 U/L (73-393); TOTAL BILIRUBIN 0.5 mg/dL (0.2-1.0); TOTAL PROTEIN 7.6 g/dL (6.4-8.2)
[2017-12-18] MEDS ORDERED: CONTRAST GIVEN MC (08:30)
[2017-12-18] MEDS: IOHEXOL 240 MG/ML 50ML VIAL. PO (09:24)
[2017-12-18] MEDS: IOHEXOL 300 MG/ML 100ML VIAL. IV (09:24)
== END 2017-12-18 11:44 | disposition home or self-care (01) ==
LOC: ER 07:09
DX: N39.0 Urinary tract infection, site not specified (principal); R19.7 Diarrhea, unspecified; F41.9 Anxiety disorder, unspecified; E78.00 Pure hypercholesterolemia, unspecified; J44.9 Chronic obstructive pulmonary disease, unspecified; I25.2 Old myocardial infarction; Z95.5 Presence of coronary angioplasty implant and graft; Z90.710 Acquired absence of both cervix and uterus; Z88.5 Allergy status to narcotic agent
CPT/HCPCS: 36415; 74177; 80053; 81001; 83690; 85025; 87086; 96374; 99285-25; J2405; Q9966; Q9967

== ENCOUNTER 2018-01-15 12:28 | Observation (INO) | payer MEDICARE ==
[2018-01-15] MEDS ORDERED: NITROGLYCERIN SUBLINGUAL 0.4 MG BOTTLE OF 25. SL (12:45)
[2018-01-15 12:56] LABS: ADD MAN DIFF? NO
[2018-01-15 13:03] LABS: BASO # 0.1 x10^3/uL (0.0-0.2); BASO % 1 % (0-3); EOS # 0.1 x10^3/uL (0.0-0.7); EOS % 1 % (0-3); HEMATOCRIT 40.4 % (36.0-47.0); HEMOGLOBIN 13.3 g/dL (12.0-15.5); LYMPH % 22 % (24-48); MEAN CORPUSCULAR HEMOGLOBIN 30 pg (25-35); MEAN CORPUSCULAR HGB CONC 33 g/dL (31-37); MEAN CORPUSCULAR VOLUME 91 fL (79-100); MONO # 0.7 x10^3/uL (0.0-1.1); MONO % 8 % (0-9); NEUT # 6.4 x10^3uL (1.8-7.7); NEUT % 68 % (31-73); PLATELET COUNT 178 x10^3/uL (140-400); RED BLOOD COUNT 4.46 x10^6/uL (3.50-5.40); RED CELL DISTRIBUTION WIDTH 14.8 % (11.5-14.5); WHITE BLOOD COUNT 9.3 x10^3/uL (4.0-11.0)
[2018-01-15 13:08] LABS: PROTHROMBIN TIME PATIENT 12.5 SEC (11.7-14.0)
[2018-01-15 13:14] LABS: ANION GAP 10 (6-14); BLOOD UREA NITROGEN 16 mg/dL (7-20); CALCIUM 8.8 mg/dL (8.5-10.1); CARBON DIOXIDE 31 mmol/L (21-32); CHLORIDE 107 mmol/L (98-107); GFR 63.8; GLUCOSE 122 mg/dL (70-99); POTASSIUM 3.7 mmol/L (3.5-5.1); SODIUM 148 mmol/L (136-145)
[2018-01-15 13:20] LABS: ALBUMIN 3.4 g/dL (3.4-5.0); ALK PHOS 142 U/L (46-116); ALT (SGPT) 38 U/L (14-59); AST (SGOT) 31 U/L (15-37); DIRECT BILIRUBIN 0.1 mg/dL (0.0-0.2); LIPASE 79 U/L (73-393); MAGNESIUM 1.9 mg/dL (1.8-2.4); TOTAL BILIRUBIN 0.4 mg/dL (0.2-1.0)
[2018-01-15 13:23] LABS: TROPONINI < 0.017 ng/mL (0.000-0.055)
[2018-01-15 13:27] LABS: THYROID STIM HORMONE (TSH) 1.991 uIU/mL (0.358-3.74)
[2018-01-15 13:29] LABS: CKMB MASS < 0.5 ng/mL (0.0-3.6); CREATINE KINASE 65 U/L (26-192)
[2018-01-15 13:29] LABS: NT-PRO BNP 157 pg/mL (0-449)
[2018-01-15 13:49] LABS: BILIRUBIN,URINE SMALL (NEG); CLARITY,URINE CLEAR; COLOR,URINE YELLOW; GLUCOSE,URINE NEGATIVE (NEG); NITRITE,URINE NEGATIVE (NEG); PH,URINE 6.5; PROTEIN,URINE 30 mg/dL (NEG-TRACE)
[2018-01-15 13:56] LABS: BACTERIA,URINE MODERATE /HPF (0-FEW); RBC,URINE 0 /HPF (0-2); SQUAMOUS EPITHELIAL CELL,UR MOD /LPF
[2018-01-15 14:03] LABS: BARBITURATES NEG (NEG); BENZODIAZEPINES POS (NEG); CANNABINOIDS NEG (NEG); COCAINE NEG (NEG); METHADONE NEG (NEG); OPIATES NEG (NEG); PHENCYCLIDINE NEG (NEG)
[2018-01-15 14:04] LABS: AMPHETAMINE/METHAMPHETAMINE NEG (NEG); ETHANOL, URINE NEG (NEG)
[2018-01-15] MEDS ORDERED: ONDANSETRON PF 4 MG/2 ML VIAL. IV (15:30)
[2018-01-15 19:06] LABS: TROPONINI < 0.017 ng/mL (0.000-0.055)
[2018-01-15 21:58] LABS: TROPONINI < 0.017 ng/mL (0.000-0.055)
[2018-01-16] MEDS ORDERED: C.DIFF MED SCREEN BY RX. MC (02:45)
[2018-01-16] MEDS ORDERED: INFLUENZA VAX SCREEN BY RX. MC (02:45)
[2018-01-16] MEDS ORDERED: traMADol 50 MG TABLET PO (03:00)
[2018-01-16] MEDS: traMADol 50 MG TABLET PO ×3 (03:13→16:39)
[2018-01-16 05:10] LABS: ADD MAN DIFF? NO
[2018-01-16 05:28] LABS: BASO # 0.1 x10^3/uL (0.0-0.2); BASO % 1 % (0-3); EOS # 0.2 x10^3/uL (0.0-0.7); EOS % 2 % (0-3); HEMATOCRIT 37.7 % (36.0-47.0); HEMOGLOBIN 12.3 g/dL (12.0-15.5); LYMPH # 1.4 x10^3/uL (1.0-4.8); LYMPH % 16 % (24-48); MEAN CORPUSCULAR HEMOGLOBIN 30 pg (25-35); MEAN CORPUSCULAR HGB CONC 33 g/dL (31-37); MEAN CORPUSCULAR VOLUME 91 fL (79-100); MONO # 0.8 x10^3/uL (0.0-1.1); MONO % 10 % (0-9); NEUT % 72 % (31-73); PLATELET COUNT 147 x10^3/uL (140-400); RED BLOOD COUNT 4.16 x10^6/uL (3.50-5.40); RED CELL DISTRIBUTION WIDTH 14.9 % (11.5-14.5); WHITE BLOOD COUNT 8.4 x10^3/uL (4.0-11.0)
[2018-01-16 05:52] LABS: ANION GAP 10 (6-14); BLOOD UREA NITROGEN 13 mg/dL (7-20); CALCIUM 8.4 mg/dL (8.5-10.1); CARBON DIOXIDE 30 mmol/L (21-32); CHLORIDE 107 mmol/L (98-107); CREATININE 0.9 mg/dL (0.6-1.0); GLUCOSE 103 mg/dL (70-99); POTASSIUM 3.1 mmol/L (3.5-5.1); SODIUM 147 mmol/L (136-145)
[2018-01-16] MEDS: POTASSIUM CHLORIDE 20 MEQ TABLET.ER. PO ×3 (10:45→16:40)
[2018-01-16 10:51] LABS: MAGNESIUM 2.1 mg/dL (1.8-2.4)
[2018-01-16] MEDS: ASPIRIN ENTERIC COATED 81 MG TABLET.DR. PO ×3 (11:00→16:39)
[2018-01-16 11:39] LABS: CHOLESTEROL 150 mg/dL (0-200); HDLC 61 mg/dL (40-60); LDLC 69 mg/dL (0-100); NON-HDL CHOLESTEROL 89 mg/dL (0-129); TRIGLYCERIDES 100 mg/dL (0-150); VLDLC 20 mg/dL (0-40)
[2018-01-16 11:45] LABS: CHOLESTEROL/HDL RATIO 2.5
[2018-01-16] MEDS: clonazePAM 0.5 MG TABLET PO (16:39)
[2018-01-16] MEDS: CHOLECALCIFEROL (VITAMIN D3) 1,000 UNIT TABLET PO (16:40)
[2018-01-16] MEDS: ENOXAPARIN 40 MG/0.4 ML SYRINGE. SQ (16:41)
[2018-01-16] MEDS: DOCUSATE SODIUM 100 MG CAPSULE. PO (21:00)
[2018-01-16] MEDS: ATORVASTATIN CALCIUM 40 MG TABLET. PO (21:06)
[2018-01-16] MEDS: FAMOTIDINE 20 MG TABLET. PO (21:06)
[2018-01-16 22:17] LABS: C DIFF BY PCR Negative (Negative)
[2018-01-17] MEDS: traMADol 50 MG TABLET PO ×3 (05:07→20:27)
[2018-01-17] MEDS: clonazePAM 0.5 MG TABLET PO ×3 (05:07→16:40)
[2018-01-17] MEDS: CHOLECALCIFEROL (VITAMIN D3) 1,000 UNIT TABLET PO (09:45)
[2018-01-17] MEDS: METOPROLOL SUCC 24HR ER 25 MG TAB.ER.24H. PO (12:25)
[2018-01-17] MEDS: ENOXAPARIN 40 MG/0.4 ML SYRINGE. SQ (16:02)
[2018-01-17] MEDS: DOCUSATE SODIUM 100 MG CAPSULE. PO (20:21)
[2018-01-17] MEDS: FAMOTIDINE 20 MG TABLET. PO (20:21)
[2018-01-17] MEDS: POTASSIUM CHLORIDE 20 MEQ TABLET.ER. PO (20:21)
[2018-01-17] MEDS: ATORVASTATIN CALCIUM 40 MG TABLET. PO (20:21)
[2018-01-18 05:02] LABS: ADD MAN DIFF? NO
[2018-01-18 05:13] LABS: BASO # 0.1 x10^3/uL (0.0-0.2); BASO % 1 % (0-3); EOS # 0.4 x10^3/uL (0.0-0.7); EOS % 4 % (0-3); HEMOGLOBIN 13.6 g/dL (12.0-15.5); LYMPH % 32 % (24-48); MEAN CORPUSCULAR HEMOGLOBIN 31 pg (25-35); MEAN CORPUSCULAR HGB CONC 33 g/dL (31-37); MEAN CORPUSCULAR VOLUME 92 fL (79-100); MONO # 0.9 x10^3/uL (0.0-1.1); MONO % 9 % (0-9); NEUT # 5.3 x10^3uL (1.8-7.7); NEUT % 55 % (31-73); PLATELET COUNT 179 x10^3/uL (140-400); RED BLOOD COUNT 4.46 x10^6/uL (3.50-5.40); RED CELL DISTRIBUTION WIDTH 15.4 % (11.5-14.5); WHITE BLOOD COUNT 9.6 x10^3/uL (4.0-11.0)
[2018-01-18 05:42] LABS: ANION GAP 7 (6-14); BLOOD UREA NITROGEN 19 mg/dL (7-20); CALCIUM 8.9 mg/dL (8.5-10.1); CARBON DIOXIDE 34 mmol/L (21-32); CHLORIDE 106 mmol/L (98-107); CREATININE 1.1 mg/dL (0.6-1.0); GFR 57.1; GLUCOSE 101 mg/dL (70-99); POTASSIUM 3.8 mmol/L (3.5-5.1); SODIUM 147 mmol/L (136-145)
[2018-01-18] MEDS: ASPIRIN ENTERIC COATED 81 MG TABLET.DR. PO (08:13)
[2018-01-18] MEDS: traMADol 50 MG TABLET PO (08:14)
[2018-01-18] MEDS: clonazePAM 0.5 MG TABLET PO (08:14)
[2018-01-18] MEDS: CHOLECALCIFEROL (VITAMIN D3) 1,000 UNIT TABLET PO (08:14)
[2018-01-18] MEDS: METOPROLOL SUCC 24HR ER 25 MG TAB.ER.24H. PO (08:19)
[2018-01-18] MEDS: BUPIVACAINE MPF 0.25% 10 ML VIAL. IJ (10:03)
[2018-01-18] MEDS: methylPREDNISolone ACETATE 40 MG/ML VIAL. IM (10:03)
[2018-01-18] MEDS ORDERED: BUTALB/APAP/CAFEIN 50/325/40MG TABLET. PO (10:45)
== END 2018-01-18 12:38 | disposition home or self-care (01) ==
LOC: ER 12:28 → ED HOLD 13:35 → 5 SOUTH 16:34
DX: R07.89 Other chest pain (principal); I25.10 Atherosclerotic heart disease of native coronary artery without angina pectoris; I10 Essential (primary) hypertension; I25.2 Old myocardial infarction; J44.9 Chronic obstructive pulmonary disease, unspecified; K21.9 Gastro-esophageal reflux disease without esophagitis; M19.90 Unspecified osteoarthritis, unspecified site; G47.33 Obstructive sleep apnea (adult) (pediatric); E78.00 Pure hypercholesterolemia, unspecified; G89.29 Other chronic pain; Z82.49 Family history of ischemic heart disease and other diseases of the circulatory system; Z83.3 Family history of diabetes mellitus
CPT/HCPCS: 36415; 70551; 71045; 72141; 72148; 73565; 80048; 80061; 80076; 80307; 81001; 82553; 83690; 83735; 83880; 84443; 84484; 85025; 85610; 87086; 87324; 93005; 93306; 96372; G0378; G0379; J1030; J1650; J3490

== ENCOUNTER → 2018-04-02 | Outpatient (CLI) | payer OTHER, MEDICARE | END | disposition home or self-care (01) | LOC: MAMMO 14:30 | DX: Z12.31 Encounter for screening mammogram for malignant neoplasm of breast (principal); M20.12 Hallux valgus (acquired), left foot; I13.0 Hypertensive heart and chronic kidney disease with heart failure and stage 1 through stage 4 chronic kidney disease, or unspecified chronic kidney disease; E11.22 Type 2 diabetes mellitus with diabetic chronic kidney disease; I50.9 Heart failure, unspecified; N18.3 Chronic kidney disease, stage 3 (moderate); R60.0 Localized edema | CPT/HCPCS: 73630; 77063; 77067 ==

== ENCOUNTER → 2018-05-16 | Outpatient (CLI) | payer MEDICARE ==
[2018-01-18 11:00] VITALS: BP 100/46
[~2018-05-16] MED LIST changes: +AZIT250T6 PO; +CEPH-263 PO; +CHOL2000 PO; +CLON0.5T11 PO; +CRESTOR40 MG PO; +DOCU-109 PO; -DOCU-27 PO; +DOCU100C28 PO; -DOCU100C5 PO; +FAMO20TA5 PO; -MELO-156 PO; +MELO7.5T29 PO; +POLY17PO29 PO; -POLY17PO5 PO; +PRED50TA PO; +PROAIR HFA8.5 GM INH
[2018-05-16 10:28] LABS: CHOLESTEROL/HDL RATIO 2.8
== END | disposition home or self-care (01) ==
LOC: LAB 09:18
PROVIDERS: ATTEND Internal Medicine Cardiovascular Disease
DX: I25.10 Atherosclerotic heart disease of native coronary artery without angina pectoris (principal); E78.5 Hyperlipidemia, unspecified; I13.0 Hypertensive heart and chronic kidney disease with heart failure and stage 1 through stage 4 chronic kidney disease, or unspecified chronic kidney disease; E11.22 Type 2 diabetes mellitus with diabetic chronic kidney disease; N18.3 Chronic kidney disease, stage 3 (moderate); I50.9 Heart failure, unspecified; E78.00 Pure hypercholesterolemia, unspecified; M19.90 Unspecified osteoarthritis, unspecified site; J45.909 Unspecified asthma, uncomplicated; J44.9 Chronic obstructive pulmonary disease, unspecified; K21.9 Gastro-esophageal reflux disease without esophagitis; Z98.61 Coronary angioplasty status; Z88.8 Allergy status to other drugs, medicaments and biological substances; Z88.5 Allergy status to narcotic agent
CPT/HCPCS: 36415; 80061

== ENCOUNTER 2018-07-23 11:11 | Emergency (ER) | payer MEDICARE, OTHER ==
[~2018-07-23] VITALS: Ht 165.1 cm; Wt 104.8 kg
[2018-07-23] MEDS ORDERED: IV NORMAL SALINE 1000ML BAG 1,000 ML IV SCH (12:15)
[2018-07-23 12:26] LABS: BILIRUBIN,URINE NEGATIVE (NEG); CLARITY,URINE CLEAR; COLOR,URINE YELLOW; NITRITE,URINE NEGATIVE (NEG); PH,URINE 5.5; PROTEIN,URINE NEGATIVE (NEG-TRACE); UROBILINOGEN,URINE 0.2 mg/dL (0.2 mg/dL)
--- NOTE | 2018-07-23 12:26 | PHYS DOC ---
Past Medical History Past Medical History: Anxiety, Arthritis, COPD, High Cholesterol, ID Additional Past Medical Histor: HOME 02 at 1L via N/C, due to sleep apnea Past Surgical History: Angioplasty, Hysterectomy (and left oophorectomy/ salpingectomy), Other Additional Past Surgical Histo: CARDIAC CATH. 4 heart stents, noncancerous nodule removed from neck Alcohol Use: None Drug Use: None Adult General Chief Complaint Chief Complaint: FLANK PAIN HPI HPI Patient is an 87-year-old female who presents to the emergency department for evaluation. She states that for the past month or so, she has had some generalized lower abdominal pain, with some radiation towards her right flank. The pain has been waxing and waning. She has not had any nausea, vomiting, diarrhea, black or bloody stools, hematuria, dysuria, urinary frequency, or hesitancy. She has not had any chest pain or shortness of breath, dizziness, or lightheadedness. Certain movements seem to worsen her pain. There are no alleviating factors to her symptoms. The patient initially thought that her pain might be related to her arthritis, but it did not improve. Review of Systems Review of Systems Constitutional: Denies fever or chills [] Eyes: Denies change in visual acuity, redness, or eye pain [] HENT: Denies nasal congestion or sore throat [] Respiratory: Denies cough or shortness of breath [] Cardiovascular: The patient denies any shortness of breath, chest pain, palpitations, or orthopnea [] GI: No additional information not addressed in HPI [] : Denies dysuria or hematuria [] Musculoskeletal: Denies new joint pain. Reports some lower back pain, but states this is chronic. [] Integument: Denies rash or skin lesions [] Neurologic: Denies headache, focal weakness or sensory changes [] Endocrine: Denies polyuria or polydipsia [] All other systems were reviewed and found to be within normal limits, except as documented in this note. Current Medications Current Medications Current Medications Medications (Trade) Dose Ordered Sig/Mendy Start Time Stop Time Status Last Admin Dose Admin Fentanyl Citrate (Fentanyl 2ml Vial) 50 mcg 1X ONCE 07/23/18 12:45 07/23/18 12:46 DC 07/23/18 12:46 50 MCG Info (CONTRAST GIVEN -- Rx MONITORING) 1 each PRN DAILY PRN 07/23/18 12:30 07/25/18 12:29 Iohexol (Omnipaque 300 Mg/ml) 75 ml 1X ONCE 07/23/18 13:00 07/23/18 13:01 DC 07/23/18 13:07 75 ML Sodium Chloride 1,000 ml @ 100 mls/hr Q10H 07/23/18 12:15 07/23/18 22:14 07/23/18 12:47 100 MLS/HR Allergies Allergies Allergies Coded Allergies Type Severity Reaction Last Updated Verified oxycodone Allergy Intermediate 02/25/15 Yes Physical Exam Physical Exam PHYSICAL EXAM: CONSTITUTIONAL: Well developed, well nourished HEAD: normocephalic, atraumatic EENT: PERRL, EOMI. Conjunctivae normal color, sclerae non-icteric; moist mucous membranes. NECK: Supple, non-tender; no meningismus. LUNGS: Lungs CTA, breathing even and unlabored. Normal air movement. HEART: Regular rate and rhythm, no murmur CHEST: No deformity; non-tender ABDOMEN: The abdomen is soft, there is mild diffuse tenderness to palpation to the entire abdomen, most prominent in the left lower abdomen, without rebound or guarding. There is also mild right flank tenderness to palpation. There is no focal right upper quadrant tenderness to palpation. The patient's abdominal girth does somewhat limit the exam., no masses or bruits. EXTREM: Normal ROM; no deformity, no calf tenderness. Normal pulses palpable in all extremities. There is no pedal edema. SKIN: No rash; no diaphoresis NEURO: Alert; normal speech and cognition; CN's grossly intact; strength grossly intact without focal deficit. BACK: No CVA TTP. There is no reproducible lower abdominal tenderness to palpation. Current Patient Data Vital Signs Vital Signs Date Time Temp Pulse Resp B/P (MAP) Pulse Ox O2 Delivery O2 Flow Rate FiO2 07/23/18 12:46 18 97 Room Air 07/23/18 11:55 97.5 73 149/75 (99) 97.5 Lab Values Laboratory Tests Test 07/23/18 11:37 07/23/18 12:20 Urine Collection Type Unknown Urine Color Yellow Urine Clarity Clear Urine pH 5.5 Urine Specific [place] >=1.030 Urine Protein Negative mg/dL (NEG-TRACE) Urine Glucose (UA) Negative mg/dL (NEG) Urine Ketones (Stick) Negative mg/dL (NEG) Urine Blood Negative (NEG) Urine Nitrite Negative (NEG) Urine Bilirubin Negative (NEG) Urine Urobilinogen Dipstick 0.2 mg/dL (0.2 mg/dL) Urine Leukocyte Esterase Small (NEG) Urine RBC 0 /HPF (0-2) Urine WBC Rare /HPF (0-4) Urine Squamous Epithelial Cells Occ /LPF Urine Bacteria 0 /HPF (0-FEW) Urine Mucus Mod /LPF White Blood Count 7.3 x10^3/uL (4.0-11.0) Red Blood Count 4.49 x10^6/uL (3.50-5.40) Hemoglobin 13.9 g/dL (12.0-15.5) Hematocrit 41.0 % (36.0-47.0) Mean Corpuscular Volume 92 fL (79-100) Mean Corpuscular Hemoglobin 31 pg (25-35) Mean Corpuscular Hemoglobin Concent 34 g/dL (31-37) Red Cell Distribution Width 14.4 % (11.5-14.5) Platelet Count 171 x10^3/uL (140-400) Neutrophils (%) (Auto) 61 % (31-73) Lymphocytes (%) (Auto) 26 % (24-48) Monocytes (%) (Auto) 10 % (0-9) H Eosinophils (%) (Auto) 3 % (0-3) Basophils (%) (Auto) 0 % (0-3) Neutrophils # (Auto) 4.5 x10^3uL (1.8-7.7) Lymphocytes # (Auto) 1.9 x10^3/uL (1.0-4.8) Monocytes # (Auto) 0.7 x10^3/uL (0.0-1.1) Eosinophils # (Auto) 0.2 x10^3/uL (0.0-0.7) Basophils # (Auto) 0.0 x10^3/uL (0.0-0.2) Sodium Level 144 mmol/L (136-145) Potassium Level 4.4 mmol/L (3.5-5.1) Chloride Level 107 mmol/L (98-107) Carbon Dioxide Level 30 mmol/L (21-32) Anion Gap 7 (6-14) Blood Urea Nitrogen 21 mg/dL (7-20) H Creatinine 1.2 mg/dL (0.6-1.0) H Estimated GFR (Cockcroft-Gault) 51.7 BUN/Creatinine Ratio 18 (6-20) Glucose Level 93 mg/dL (70-99) Lactic Acid Level 0.9 mmol/L (0.4-2.0) Calcium Level 8.6 mg/dL (8.5-10.1) Total Bilirubin 0.2 mg/dL (0.2-1.0) Aspartate Amino Transferase (AST) 15 U/L (15-37) Alanine Aminotransferase (ALT) 17 U/L (14-59) Alkaline Phosphatase 127 U/L (46-116) H Total Protein 7.2 g/dL (6.4-8.2) Albumin 3.2 g/dL (3.4-5.0) L Albumin/Globulin Ratio 0.8 (1.0-1.7) L Lipase 83 U/L (73-393) Laboratory Tests 07/23/18 12:20 Laboratory Tests 07/23/18 12:20 EKG EKG [] Radiology/Procedures Radiology/Procedures [PROCEDURE: CT ABD PELV W/ IV CONTRST ONLY EXAM: CT Abdomen and Pelvis with IV contrast CLINICAL HISTORY: RIGHT LOWER ABD PAIN X 1 MONTH. IV OMNI 300 60 MLS. PREVIOUS. COMPARISON: 12/18/2017 TECHNIQUE: Helical CT of the abdomen and pelvis was performed following the administration of intravenous contrast. Axial, coronal and sagittal reformatted images were generated. PQRS compliance statement - One or more of the following individualized dose reduction techniques were utilized for this study: 1. Automated exposure control 2. Adjustment of the mA and/or kV according to patient size 3. Use of iterative reconstruction technique FINDINGS: Lower chest: Dependent subpleural opacities likely atelectasis/scarring. In general lesion is stable to prior CT 12/18/2017. Coronary artery calcifications are seen. Small hiatal hernia. Abdomen and Pelvis: No focal liver lesion. Liver is mildly enlarged measuring 19.2 cm in length. Cholelithiasis. No evidence for acute cholecystitis. No biliary ductal dilatation. Spleen is unremarkable with a few calcified granuloma. Adrenal glands are are normal in appearance. Pancreas is unremarkable. Symmetric nephrograms. A few left parapelvic cysts are seen. Otherwise no focal renal lesion is seen. No hydronephrosis. Moderate colonic stool content. The appendix is normal. A few colonic diverticula are seen. No evidence for acute diverticulitis. Atherosclerotic calcifications of the aorta are seen. No abdominal or pelvic lymphadenopathy. No abdominal or pelvic ascites. Bladder is decompressed otherwise unremarkable. There has been a hysterectomy. Small fat-containing periumbilical hernia is seen. Bones: Degenerative changes of the spine are seen. IMPRESSION: 1. Cholelithiasis without evidence of acute cholecystitis. 2. Liver is mildly enlarged. 3. Colonic diverticula are seen without evidence of acute diverticulitis. 4. Small fat-containing periumbilical hernia is seen. 5. Appendix is normal. No evidence for bowel obstruction.] Course & Med Decision Making Course & Med Decision Making Pertinent Labs and Imaging studies reviewed. (See chart for details) [3:15 PM: The patient's condition remains stable. She has been reexamined, she has no focal right upper quadrant tenderness to palpation. Her pain is lower. I do question whether constipation might be related to her pain. She does take MiraLAX once daily and reports having regular, although sometimes small bowel movements. I discussed importance of further follow-up with her PCP, but she [place]. I will give the patient information for GI referral for further evaluation. We discussed return precautions in detail. Given the patient's negative workup at this time and the fact that her symptoms have been present for over a month, I do feel outpatient workup is reasonable and appropriate.] Dragon Disclaimer Dragon Disclaimer This electronic medical record was generated, in whole or in part, using a voice recognition dictation system. Departure Departure Impression: Primary Impression: Flank pain Additional Impression: Abdominal pain Disposition: 01 HOME, SELF-CARE Condition: STABLE Referrals: BACILIO HERNANDEZ MD (PCP) ZOLTAN NAPIER MD Patient Instructions: Abdominal Pain, Constipation, Adult, Flank Pain Problem Qualifiers FORREST ESPAÑA MD Jul 23, 2018 12:26
[2018-07-23 12:30] LABS: BASO % 0 % (0-3); EOS # 0.2 x10^3/uL (0.0-0.7); EOS % 3 % (0-3); HEMOGLOBIN 13.9 g/dL (12.0-15.5); LYMPH # 1.9 x10^3/uL (1.0-4.8); LYMPH % 26 % (24-48); MEAN CORPUSCULAR HEMOGLOBIN 31 pg (25-35); MEAN CORPUSCULAR HGB CONC 34 g/dL (31-37); MEAN CORPUSCULAR VOLUME 92 fL (79-100); MONO # 0.7 x10^3/uL (0.0-1.1); MONO % 10 % (0-9); NEUT # 4.5 x10^3uL (1.8-7.7); NEUT % 61 % (31-73); PLATELET COUNT 171 x10^3/uL (140-400); RED BLOOD COUNT 4.49 x10^6/uL (3.50-5.40); RED CELL DISTRIBUTION WIDTH 14.4 % (11.5-14.5); WHITE BLOOD COUNT 7.3 x10^3/uL (4.0-11.0)
[2018-07-23] MEDS ORDERED: CONTRAST GIVEN. MC PRN (12:30)
[2018-07-23 12:32] LABS: BACTERIA,URINE 0 /HPF (0-FEW); RBC,URINE 0 /HPF (0-2); SQUAMOUS EPITHELIAL CELL,UR OCC /LPF; WBC,URINE RARE /HPF (0-4)
[2018-07-23 12:39] LABS: CALCIUM 8.6 mg/dL (8.5-10.1); CREATININE 1.2 mg/dL (0.6-1.0); GFR 51.7; POTASSIUM 4.4 mmol/L (3.5-5.1)
[2018-07-23 12:45] LABS: ALBUMIN 3.2 g/dL (3.4-5.0); ALBUMIN/GLOBULIN RATIO 0.8 (1.0-1.7); TOTAL BILIRUBIN 0.2 mg/dL (0.2-1.0); TOTAL PROTEIN 7.2 g/dL (6.4-8.2)
[2018-07-23] MEDS ORDERED: fentaNYL PF VIAL 100 MCG/2 ML VIAL IV ONE (12:45)
[2018-07-23] MEDS ORDERED: IOHEXOL 300 MG/ML 100ML VIAL. IV ONE (13:00)
--- NOTE | 2018-07-23 13:26 | RAD ---
EXAM: CT Abdomen and Pelvis with IV contrast CLINICAL HISTORY: RIGHT LOWER ABD PAIN X 1 MONTH. IV OMNI 300 60 MLS. PREVIOUS. COMPARISON: 12/18/2017 TECHNIQUE: Helical CT of the abdomen and pelvis was performed following the administration of intravenous contrast. Axial, coronal and sagittal reformatted images were generated. PQRS compliance statement - One or more of the following individualized dose reduction techniques were utilized for this study: 1. Automated exposure control 2. Adjustment of the mA and/or kV according to patient size 3. Use of iterative reconstruction technique FINDINGS: Lower chest: Dependent subpleural opacities likely atelectasis/scarring. In general lesion is stable to prior CT 12/18/2017. Coronary artery calcifications are seen. Small hiatal hernia. Abdomen and Pelvis: No focal liver lesion. Liver is mildly enlarged measuring 19.2 cm in length. Cholelithiasis. No evidence for acute cholecystitis. No biliary ductal dilatation. Spleen is unremarkable with a few calcified granuloma. Adrenal glands are are normal in appearance. Pancreas is unremarkable. Symmetric nephrograms. A few left parapelvic cysts are seen. Otherwise no focal renal lesion is seen. No hydronephrosis. Moderate colonic stool content. The appendix is normal. A few colonic diverticula are seen. No evidence for acute diverticulitis. Atherosclerotic calcifications of the aorta are seen. No abdominal or pelvic lymphadenopathy. No abdominal or pelvic ascites. Bladder is decompressed otherwise unremarkable. There has been a hysterectomy. Small fat-containing periumbilical hernia is seen. Bones: Degenerative changes of the spine are seen. IMPRESSION: 1. Cholelithiasis without evidence of acute cholecystitis. 2. Liver is mildly enlarged. 3. Colonic diverticula are seen without evidence of acute diverticulitis. 4. Small fat-containing periumbilical hernia is seen. 5. Appendix is normal. No evidence for bowel obstruction. Electronically signed by: Philip Delvalle MD (07/23/2018 1:23 PM) [id number]
[2018-07-23 15:00] VITALS: BP 158/69
== END 2018-07-23 16:00 | disposition home or self-care (01) ==
LOC: ER 11:11
DX: R10.84 Generalized abdominal pain (principal); J44.9 Chronic obstructive pulmonary disease, unspecified; E78.00 Pure hypercholesterolemia, unspecified; I25.2 Old myocardial infarction; Z90.710 Acquired absence of both cervix and uterus; Z88.5 Allergy status to narcotic agent
CPT/HCPCS: 36415; 74177; 80053; 81001; 83605; 83690; 85025; 87086; 96374; 99285; J3010; J7030; Q9967

== ENCOUNTER → 2018-12-05 | Outpatient (CLI) | payer MEDICARE ==
[~2018-12-05] MED LIST changes: +ALBU2.5V8 INH; -PROAIR HFA8.5 GM INH
[2018-12-05 14:33] LABS: CALCIUM 9.4 mg/dL (8.5-10.1); CREATININE 1.2 mg/dL (0.6-1.0); GFR 51.5; MAGNESIUM 2.1 mg/dL (1.8-2.4); POTASSIUM 4.4 mmol/L (3.5-5.1)
[2018-12-05 14:38] LABS: CHOLESTEROL/HDL RATIO 2.1
[2018-12-06 23:15] LABS: HEMOGLOBIN A1C 5.6 % (4.8-5.6)
== END | disposition home or self-care (01) ==
LOC: LAB 13:22
PROVIDERS: ATTEND Internal Medicine Cardiovascular Disease
DX: E78.5 Hyperlipidemia, unspecified (principal); E11.9 Type 2 diabetes mellitus without complications
CPT/HCPCS: 36415; 80048; 80061; 83036; 83695; 83735

== ENCOUNTER → 2019-01-15 | Outpatient (CLI) | payer MEDICARE ==
[2019-01-15 08:52] LABS: CREATININE 1.1 mg/dL (0.6-1.0); POTASSIUM 4.4 mmol/L (3.5-5.1)
== END | disposition home or self-care (01) ==
LOC: LAB 07:54
PROVIDERS: ATTEND Internal Medicine Cardiovascular Disease
DX: I10 Essential (primary) hypertension (principal); E78.2 Mixed hyperlipidemia; E11.9 Type 2 diabetes mellitus without complications
CPT/HCPCS: 36415; 80048; 83735; 83880

== ENCOUNTER → 2019-02-22 | Outpatient (CLI) | payer MEDICARE ==
[2019-02-22 17:10] LABS: HEMOGLOBIN A1C 5.7 % (4.8-5.6)
== END | disposition home or self-care (01) ==
LOC: LAB 07:46
PROVIDERS: ATTEND Internal Medicine Cardiovascular Disease
DX: R20.0 Anesthesia of skin (principal)
CPT/HCPCS: 36415; 82728; 83036; 83540; 83550; 83655; 86592; 86703

== ENCOUNTER → 2019-10-28 | Outpatient (CLI) | payer MEDICARE, MEDICAID ==
[~2019-10-28] MED LIST changes: +CLON-77 PO; -CLON0.5T11 PO
--- NOTE | 2019-10-28 10:35 | KCIC ---
EXAM: Pelvic sonogram. HISTORY: Right lower quadrant pain. TECHNIQUE: Sonographic imaging of the pelvis was performed. COMPARISON: None. FINDINGS: The uterus is surgically absent. The right ovary is not seen. The left ovary is surgically absent. There is no pelvic free fluid. There are loops of bowel within the right adnexa. IMPRESSION: 1. Surgically absent uterus and left ovary. 2. Nonvisualization of the right ovary. This may be obscured due to bowel loops within the right adnexa or also surgically absent. Electronically signed by: Shy Daniels MD (10/28/2019 10:32 AM) [facility] [place]
== END | disposition home or self-care (01) ==
LOC: KCIC US 09:19
PROVIDERS: ATTEND Family Medicine
DX: R10.31 Right lower quadrant pain (principal); Z90.710 Acquired absence of both cervix and uterus; Z90.721 Acquired absence of ovaries, unilateral
CPT/HCPCS: 76856

== ENCOUNTER → 2019-11-15 | Outpatient (CLI) | payer MEDICARE, MEDICAID ==
--- NOTE | 2019-11-15 13:32 | KCIC ---
Two-view right hip dated 11/15/2019. Comparison made to 09/18/2016. CLINICAL INDICATION: Pain. FINDINGS: 2 views of the right hip show normal bony alignment. No displaced fracture. Moderate degenerative change of the right hip joint with mild degenerative change of the pubic symphysis and right SI joint. There are some enthesopathic changes at the right iliac bone proximally. Diffuse vascular calcinosis. IMPRESSION: 1. No acute radiographic abnormality. 2. Degenerative changes as described Electronically signed by: Jus Contreras MD (11/15/2019 1:29 PM) [id number]
== END | disposition home or self-care (01) ==
LOC: KCIC 12:50
PROVIDERS: ATTEND Family Medicine
DX: M16.11 Unilateral primary osteoarthritis, right hip (principal); M25.851 Other specified joint disorders, right hip
CPT/HCPCS: 73502

== ENCOUNTER → 2019-12-25 | Outpatient (CLI) | payer BC, MEDICAID ==
[~2019-12-25] MED LIST changes: +ASCO500C PO; +BUTA-177 PO; +CALC625T PO; +CHOL3000 PO; +DIME50TA PO; +EZET10TA20 PO; +IOHEXOL 180 MG/ML 10 ML VIAL. ONE; +METF500T16 PO; +NIAC500T PO; +OMEP20CA16 PO; +QUET25TA5 PO; +methylPREDNISolone ACETATE 40 MG/ML VIAL. ONE; +methylPREDNISolone ACETATE 80 MG/ML VIAL. ONE
--- NOTE | 2019-12-25 14:00 | PAIN ---
DATE OF SERVICE: 12/25/2019 INITIAL CONSULTATION FOR PAIN CLINIC CHIEF COMPLAINT: Low back and right lower extremity pain. HISTORY OF PRESENT ILLNESS: This is an 89-year-old female who presents with history of pain in the low back, right lower extremity for about 3 months, increasing. She has had this over time, but has been much worse over the past 3 months without any specific injury or action that she is aware of recently. The patient reports significant pain with walking, standing, changing positions, getting up from seated position, standing at a counter for any time, when she is preparing meals and so forth. The patient reports the pain in the low back, right lower extremity in the posterior gluteus, posterolateral thigh, lateral anterior thigh, anterior medial thigh, medial lower leg and the lateral calf on the right side, but not on the left. The patient reports there is no loss of motor function, but significant fatigability with standing and walking on the right side. The patient reports it is constant, sharp, stabbing, throbbing, shooting and becoming more radiating in the leg, aching and cramping in the low back as well. The patient reports no specific injury or action that she is aware of. The patient rates her disability rating from 0-10, 10 being the worst, is a 10 with family and home responsibilities, recreation, social activity, occupation and sexual behavior. The patient did have an MRI scan of the lumbar spine showing right greater than left lateral recess stenosis at L4-L5 with severe facet degenerative changes, narrowing of the right lateral recess with a right neural foramen bulge near the undersurface of exiting right L4 nerve root, greater in the distal right neural foramen, L3-L4 shows some [id number] facet degenerative changes with mild neural foraminal compromise bilaterally with minimal narrowing of the far lateral recesses, greater on the right as well. The patient reports again no loss of function, but significant fatigability, reports it awakens her from sleep at least 1-2 times a night, does not affect her bowel or bladder control, but does affect her ability to walk and she is using a walker and she has it with her today. 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 PAST MEDICAL HISTORY: Significant for hearing loss; diabetes, diet controlled; sleep apnea; home oxygen use p.r.n.; coronary artery disease; arthritis; history of panic attacks. PREVIOUS SURGERIES: Include cataract extraction, cholecystectomy, tubal ligation, hysterectomy and a lymph node biopsy in the throat. CURRENT MEDICATIONS: Include tramadol, Zetia, omeprazole, Seroquel, Crestor, niacin, FiberCon, vitamin D, vitamin C, butalbital, MiraLax, cholecalciferol, Colace, daily baby aspirin, famotidine, Wal-Dram and clonazepam. ALLERGIES: The patient has no known drug allergies. FAMILY HISTORY: Significant for no major medical problems or conditions she is aware of. SOCIAL HISTORY: The patient does not drink alcohol, does not smoke, does not use any illegal, illicit or recreational drugs. The patient is single, lives with a roommate locally in [place], [place]. The patient reports she is currently retired. REVIEW OF SYSTEMS: The patient's review of systems is positive for those items mentioned in history of present illness. All systems reviewed and otherwise negative. It is complete, full and well documented on the patient's chart. PHYSICAL EXAMINATION: VITAL SIGNS: The patient's blood pressure 142/78, pulse 103, respirations 18, temperature 98.0 degrees Fahrenheit, height is 5 feet 5 inches, weight is 214 pounds. GENERAL: The patient is awake, alert, oriented, appropriate, very pleasant demeanor. HEENT: Shows normocephalic, atraumatic. Extraocular movements are intact and symmetrical. Oral cavity: Mucous membranes moist and pink. Dentition is intact. NECK: Shows anterior throat supple without palpable lymphadenopathy noted. Swallow reflex symmetrical. CHEST: Shows normal on inspection. Breath sounds are clear bilaterally. HEART: Shows S1, S2 clear. No murmurs auscultated. ABDOMEN: Obese but soft, nontender, nondistended. BACK: Shows spine grossly in the midline. Normal appearing thoracic kyphosis, some minor flattening of lumbar lordotic curvature. Lumbar paraspinous muscle shows symmetrical on inspection, with palpation shows some [id number]-[id number] tenderness diffusely bilaterally going diffusely without significant radiation. The patient has good rotational motion of lumbar spine, both laterally as well as extension and flexion without significant difficulty. The patient shows no tenderness over the spinous processes, sacrum or sacroiliac region with direct palpation. The patient's back shows good rotational motion both laterally as well as extension and flexion without significant increase in pain. EXTREMITIES: The patient's lower extremities show deep tendon reflexes at 1+ in the patellar and tendo calcaneus tendons. Motor exam is strong with approximately 4 on a scale of 5 right dorsiflexion, extension, 5/5 on the left. This is true with quadriceps and hamstring flexion as well 4/5 right, 5/5 left. Peripheral pulses are 1+ posterior tibial. No peripheral edema is noted bilaterally. Lower extremities are warm and dry to touch, equal in color and appearance. Straight leg raise noted to be mildly positive on the right, but only about 45 degrees with decreased knee flexion, decrease with pain with knee flexion, left side is negative. Gaenslen's and New's maneuvers are negative bilaterally. The patient is able to stand, has some slight difficulty raising from a seated position and using both arms of the chair to help herself. When she is up, she is walking with a slight shuffling gait, does appear to favor the right lower extremity over the left, again using a walker with roll of wheels to ambulate. SKIN: Shows warm and dry, good turgor. No edema. No sores, rashes or bruising throughout. IMPRESSION: 1. This is an 89-year-old female with long history of low back and right lower extremity pain, worse over the past 3 months or so in a radicular fashion. 2. MRI scan of lumbar spine as noted. 3. Arthritis. 4. Sleep apnea. 5. Coronary artery disease. 6. Diet-controlled diabetes. PLAN: Options were discussed with the patient including conservative medical managements, physical therapies and interventional techniques. She would like to pursue interventional techniques. We discussed a lumbar epidural steroid injection using description as well as anatomical models to describe the procedure. Risks were then discussed including, but not limited to bleeding, infection, possibility of epidural hematoma, subsequent neurological compromise, dural puncture, headaches, spinal cord and/or nerve damage, side effects of steroid medication and poor results regarding pain control. The patient understands and wished to proceed. The patient will return to clinic in approximately 2 weeks for followup. She was counseled on return appointment, activity level and side effects to be aware of. DIAGNOSES: Lumbar radiculopathy with lumbar degenerative disk disease, lumbar spinal stenosis. PROCEDURE: Lumbar epidural steroid injection, translaminar approach L4-L5 level using C-arm fluoroscopic guidance under sterile prep and drape using local anesthetic. MEDICATION INJECTED: A total of 120 mg Depo-Medrol plus 10 mL preservative-free normal saline and 2 mL of contrast. CONDITION AT DISCHARGE: Stable. The patient tolerated procedure well, had no complications. KANG MONTGOMERY MD DR: JEFF/raimundo JOB#: [id number] / [id number] YOBANI Cade
== END | disposition home or self-care (01) ==
LOC: PNCL 08:22
PROVIDERS: ATTEND Anesthesiology
DX: M51.16 Intervertebral disc disorders with radiculopathy, lumbar region (principal); M19.90 Unspecified osteoarthritis, unspecified site; I25.10 Atherosclerotic heart disease of native coronary artery without angina pectoris; E11.9 Type 2 diabetes mellitus without complications; G47.33 Obstructive sleep apnea (adult) (pediatric); Z98.890 Other specified postprocedural states; Z90.49 Acquired absence of other specified parts of digestive tract; Z98.51 Tubal ligation status; Z90.710 Acquired absence of both cervix and uterus; Z79.82 Long term (current) use of aspirin; Z79.899 Other long term (current) drug therapy; Z88.8 Allergy status to other drugs, medicaments and biological substances
CPT/HCPCS: 62323; J1030; J1040; Q9965

== ENCOUNTER → 2020-01-08 | Outpatient (CLI) | payer BC, MEDICAID ==
--- NOTE | 2020-01-08 09:14 | PAIN ---
DATE OF SERVICE: 01/08/2020 PROGRESS NOTE FOR PAIN CLINIC DIAGNOSES: Lumbar radiculopathy with lumbar degenerative disk disease and lumbar spinal stenosis. HISTORY OF PRESENT ILLNESS: The patient is an 89-year-old female who returns for followup status post lumbar epidural steroid injection x 1. The patient reports about 50% improvement in her low back and right lower extremity. The patient reports still some pain in these areas, but much decreased. She has been increasing her activity with greater mobility, walking greater distances, doing household activities with greater ease and comfort, and traveling with greater ease. The patient reports she is sleeping well at night, does not bother when sitting or lying down, does not awaken her from sleep. The patient reports it is a 5 on a scale of 10 at its worst over the past week, 4 on average and 4 at its least and is about a 4 today. The patient reports it is sharp and stabbing in the low back, cramping and shooting in the right lower extremity with some numbness in the right calf as well. The patient reports it is on and off in intensity though and is much better than it was. The patient reports no new motor or sensory deficits, no new bowel or bladder incontinence or other complaints. PHYSICAL EXAMINATION: VITAL SIGNS: The patient's blood pressure is 131/84, pulse 88, respirations 18, temperature 98.7 degrees Fahrenheit. Height is 5 feet 5 inches, weight is 214 pounds. GENERAL: The patient is awake, alert, oriented, appropriate, very pleasant demeanor. HEENT: Shows normocephalic, atraumatic. Extraocular movements are intact and symmetrical. Oral cavity shows mucous membranes are moist and pink. NECK: Shows anterior throat supple without palpable lymphadenopathy noted. Swallow reflex symmetrical. CHEST: Shows normal on inspection. Breath sounds are clear bilaterally. HEART: Shows S1, S2 clear. ABDOMEN: Soft, nontender, nondistended. No palpable organomegaly is noted. No rebound or guarding demonstrated. BACK: Shows spine grossly in the midline. Normal appearing thoracic kyphosis and lumbar lordotic curvature. Lumbar paraspinous muscle shows symmetrical on inspection, on palpation shows some moderate tenderness only in the low lumbar distribution and only diffusely without radiation, without trigger points, without asymmetry. The patient has good rotational motion of the lumbar spine, both laterally as well as extension and flexion without significant increase in pain. EXTREMITIES: Lower extremities show deep tendon reflexes 1+ to patellar and tendo calcaneus tendons. Motor exam is strong with approximately 4 on a scale of 5 with right dorsiflexion and extension, 5/5 on the left. Peripheral pulses are 1+. No peripheral edema is noted. Options were discussed with the patient. The patient's old chart was reviewed as her current medication regimen updated. Current review of systems updated today as well. We will proceed with a second in a series of lumbar epidural steroid injection today with fluoroscopic guidance. Risks were again discussed including, but not limited to bleeding, infection, possibility of epidural hematoma, subsequent neurological compromise, dural puncture, headaches, spinal cord and/or nerve damage, side effects of steroid medication and poor results regarding pain control. The patient understands and wished to proceed. The patient will return to clinic in approximately 2 weeks for followup. She was counseled on her return appointment, activity level and side effects to be aware of. DIAGNOSES: Lumbar radiculopathy with lumbar degenerative disk disease and lumbar spinal stenosis. PROCEDURES: Lumbar epidural steroid injection with translaminar approach L4-L5 level using C-arm fluoroscopic guidance under sterile prep and drape using local anesthetic. MEDICATIONS INJECTED: A total of 120 mg of Depo-Medrol plus 10 mL of preservative-free normal saline and 2 mL of contrast. CONDITION AT DISCHARGE: Stable. The patient tolerated the procedure well, had no complications. KANG MONTGOMERY MD DR: JEFF/raimundo JOB#: [id number] / [id number]
== END ==
LOC: PNCL 07:57
PROVIDERS: ATTEND Anesthesiology
DX: M51.16 Intervertebral disc disorders with radiculopathy, lumbar region (principal); M48.061 Spinal stenosis, lumbar region without neurogenic claudication
CPT/HCPCS: 62323; J1030; J1040; Q9965

== ENCOUNTER → 2020-01-29 | Outpatient (CLI) | payer MEDICARE, MEDICAID ==
--- NOTE | 2020-01-29 09:24 | PAIN ---
DATE OF SERVICE: 01/29/2020 PROGRESS NOTE FOR PAIN CLINIC DIAGNOSIS: Lumbar radiculopathy with lumbar degenerative disk disease, lumbar spinal stenosis. HISTORY OF PRESENT ILLNESS: The patient is an 89-year-old female who returned for followup status post lumbar epidural steroid injection x 2. The patient reports about 70% improvement for the first week, then the pain returns in the low back and the right lower extremity. The patient reports otherwise she is doing very well for the first week or so, but the pain returns fairly abruptly with pain in the low back, right lower extremity, posterior gluteus, posterior thigh, lateral thigh, anterior thigh, medial thigh and lateral lower leg on the right side. The patient reports it is sharp and stabbing in the back, unbearable, shooting and radiating into the leg. The patient reports a 10 on a scale of 10 at its worst, average and least over the past week. The patient reports no new motor or sensory deficits, no new bowel or bladder incontinence, but significant fatigability in the right leg and pain with walking. The patient reports initially she was doing much better with household activities, walking greater distances and was walking without her walker, she has it with her today. The patient reports it does not awaken her from sleep at night, feels much better with sitting or lying down. No new motor or sensory deficits reported. No new bowel or bladder incontinence. PHYSICAL EXAMINATION: VITAL SIGNS: The patient's blood pressure 132/62, pulse 52, respirations are 18, temperature 98.1 degrees Fahrenheit. GENERAL: The patient is awake, alert, oriented, appropriate, very pleasant in demeanor. HEENT: Shows normocephalic, atraumatic. Extraocular movements intact and symmetrical. Oral cavity: Mucous membranes moist and pink. Dentition is intact. NECK: Shows anterior throat supple without palpable lymphadenopathy noted. Swallow reflex symmetrical. CHEST: Shows normal on inspection. Breath sounds are clear to auscultation bilaterally. HEART: Shows S1, S2 clear. No murmurs auscultated. ABDOMEN: Soft, nontender, nondistended. No palpable organomegaly is noted. No rebound or guarding demonstrated. BACK: Shows spine grossly in the midline. Normal appearing thoracic kyphosis and lumbar lordotic curvature is slightly flattened. Lumbar paraspinous muscle shows symmetrical on inspection, on palpation shows some moderate tenderness diffusely bilaterally going diffusely without significant radiation. The patient has good rotational motion of the lumbar spine, both laterally as well as extension and flexion without significant difficulty. EXTREMITIES: The patient's lower extremities show deep tendon reflexes at 1+ patellar and tendo calcaneus tendons are equal. Motor exam is approximately 4 on a scale of 5 on the right with dorsiflexion and extension, 5/5 on the left. Peripheral pulses are 1+ in the posterior tibia. No peripheral edema bilaterally. Options were discussed with the patient. The patient's old chart was reviewed as his current medication regimen updated. Current review of systems updated today as well. We will proceed with a third in a series of lumbar epidural steroid injection today under fluoroscopic guidance. Risks were again discussed including, but not limited to bleeding, infection, possibility of epidural hematoma, subsequent neurological compromise, dural puncture, headaches, spinal cord and/or nerve damage, side effects of steroid medication and poor results regarding pain control. The patient understands and wishes to proceed. The patient will return to clinic in approximately 2 weeks for followup. She was counseled on return appointment, activity level and side effects to be aware of. DIAGNOSIS: Lumbar radiculopathy with lumbar degenerative disk disease, lumbar spinal stenosis. PROCEDURE: Lumbar epidural steroid injection, translaminar approach at L4-L5 level using C-arm fluoroscopic guidance under sterile prep and drape using local anesthetic. MEDICATION INJECTED: A total of 120 mg Depo-Medrol plus 10 mL of preservative-free normal saline and 2 mL of contrast. CONDITION AT DISCHARGE: Stable. The patient tolerated procedure well, had no complications. KANG MONTGOMERY MD DR: JEFF/raimundo JOB#: [id number] / [id number]
== END ==
LOC: PNCL 08:10
PROVIDERS: ATTEND Anesthesiology
DX: M51.16 Intervertebral disc disorders with radiculopathy, lumbar region (principal); M48.061 Spinal stenosis, lumbar region without neurogenic claudication
CPT/HCPCS: 62323; J1030; J1040; Q9965

== ENCOUNTER → 2020-02-18 | Outpatient (CLI) | payer MEDICARE, MEDICAID ==
[~2020-02-18] MED LIST changes: -IOHEXOL 180 MG/ML 10 ML VIAL. ONE; -methylPREDNISolone ACETATE 40 MG/ML VIAL. ONE; -methylPREDNISolone ACETATE 80 MG/ML VIAL. ONE
--- NOTE | 2020-02-18 11:16 | RAD ---
MRI Lumbar Spine without contrast History: Right lumbar radiculopathy Technique: Multiplanar, multi sequential noncontrast MR imaging was performed of the lumbar spine. Comparison: January 17, 2018 Findings: Lumbar vertebral body stature is maintained. There is grade 1 anterior spondylolisthesis at L4-5 and negligible anterior spondylolisthesis L5-S1. There is no significant focal marrow edema. There is again interbody calcification L5-S1. There is mild L4-5 degenerative disc disease, mild disc desiccation L3-4 and L2-3. Conus terminates near L1. There are some scattered hemangiomas most notable T11, L1, L2, and L4. Not fully evaluated, there could be mild left hydronephrosis or pelvocaliectasis. L1-L2: Spinal canal and the neural foramina are adequate. L2-L3: There is again mild facet degenerative change and buckling of the ligamentum flavum. There is prominence of posterior epidural fat centrally. There is now protrusion in the right lateral recess about 4 mm AP by about 9 mm transverse with increased indentation upon the ventral thecal sac and moderate to severe right lateral recess stenosis, contact of the descending right L3 nerve root. There is similar degree of mild narrowing of the far left lateral recess. There is again mild narrowing of the right neural foramen, left neural foramen adequate. L3-L4: There is again facet degenerative change and buckling of the ligamentum flavum. There is again minimal disc osteophyte complex and bulge. There is again mild narrowing of the far lateral recesses bilaterally. Overall mild inferior neural foramina compromise greater on the right is similar. L4-L5: There is again fairly severe facet degenerative change and moderate to severe buckling of the ligamentum flavum. There is partial uncovering of the posterior aspect of the disc due to spondylolisthesis. There is again fairly severe right lateral recess stenosis with contact descending right L5 nerve root. There is some moderate to severe left lateral recess stenosis and mild to moderate narrowing of the central canal. There is again mild narrowing of the right neural foramen, left neural foramen adequate. L5-S1: Spinal canal and neural foramina are adequate. There is again facet degenerative change greater on the left. Impression: 1. Comparing with the December 2017 exam, there is increased right lateral recess stenosis at L2-3 by protrusion contacting the descending right L3 nerve root. There is similar, right greater than left lateral recess stenosis at L4-5, contact of the descending right L5 nerve root. 2. There is again grade 1 anterior spondylolisthesis L4-5. There is multilevel lumbar facet degenerative change. 3. There is a similar degree of overall mild neural foramina compromise as described such as bilaterally at L3-4 and on the right at L2-3 and L4-5. 4. There is mild L4-5 degenerative disc disease, mild disc desiccation more superiorly and also degree of L5-S1 interbody calcification. 5. Incompletely evaluated, there could be mild left hydronephrosis or pelvocaliectasis although findings could also be due to cysts. Electronically signed by: Matt Dumont MD (02/18/2020 11:13 AM) [id number]
== END ==
LOC: MRI 09:10
PROVIDERS: ATTEND Anesthesiology
DX: M51.16 Intervertebral disc disorders with radiculopathy, lumbar region (principal)
CPT/HCPCS: 72148

== ENCOUNTER 2020-05-17 18:30 | Emergency (ER) | payer MEDICARE, MEDICAID ==
[~2020-05-17] VITALS: Ht 175.3 cm; Wt 95.4 kg
[~2020-05-17 18:30] MED LIST changes: +MULT-445 PO; -MULT1TAB52 PO
[2020-05-17] MEDS ORDERED: MAG HYDROX/ALUMINUM HYD/SIMETH 30 ML ORAL.SUSP PO ONE (19:15)
[2020-05-17] MEDS ORDERED: FAMOTIDINE 20 MG TABLET. PO ONE (19:15)
[2020-05-17] MEDS ORDERED: GABAPENTIN 300 MG CAPSULE. PO ONE (19:15)
[2020-05-17] MEDS ORDERED: cloNIDine HCL 0.1 MG TABLET PO ONE (19:15)
--- NOTE | 2020-05-17 19:19 | PHYS DOC ---
Past Medical History Past Medical History: Anxiety, Arthritis, COPD, High Cholesterol, SC Additional Past Medical Histor: HOME 02 at 1L via N/C, due to sleep apnea Past Surgical History: Angioplasty, Hysterectomy, Other Additional Past Surgical Histo: CARDIAC CATH. 4 heart stents, noncancerous nodule removed from neck Smoking Status: Never Smoker Alcohol Use: None Drug Use: None General Adult EDM: Chief Complaint: DIZZY/LIGHT HEADED HPI: HPI: Patient is a 89 year old female who presents with multiple complaints. The patient presents today with complaints of just not feeling well. Patient relate to me the work-up that she has had recently considering her right lower extremity pain. She has had multiple visits to physicians including and a neurosurgeon who declined to do any surgery on her. She is also been seen by electric screw driver operator who did a preoperative work-up clearing her for surgery with a recent stress test. Today she is frustrated stating that she is having so much pain when she walks that she does not want put any weight on that leg. She is also concerned that her pain continues to bother her. However she has been evaluated by orthopedic surgery as well at who also stated that surgery would not be appropriate on any of her joints secondary to the fact that this is neurogenic pain. Patient also states that she has been having troubles with anxiety and chest pain today. She describes her chest pain as a pressure sensation over the middle of her chest. Is been present since about 5:00 this afternoon when she became dizzy, short of breath and anxious. Patient otherwise denies any cough, cold, nausea, vomiting or any recent illnesses including diarrhea. Review of Systems: Review of Systems: Constitutional: Denies fever or chills. [] Eyes: Denies change in visual acuity. [] HENT: Denies nasal congestion or sore throat. [] Respiratory: See HPI. [] Cardiovascular: See HPI. [] GI: Denies abdominal pain, nausea, vomiting, bloody stools or diarrhea. [] : Denies dysuria. [] Musculoskeletal: See HPI. [] Integument: Denies rash. [] Neurologic: Denies headache, focal weakness or sensory changes. [] Endocrine: Denies polyuria or polydipsia. [] Lymphatic: Denies swollen glands. [] Psychiatric: Denies depression or anxiety. [] Heart Score: HEART Score for Chest Pain: HEART Score for Chest Pain Response (Comments) Value History Slighlty/Non-Suspicious 0 ECG Normal 0 Age > 65 2 Risk Factors 1 or 2 Risk Factors 1 Troponin < Normal Limit 0 Total 3 Risk Factors: Risk Factors: DM, Current or recent (<one month) smoker, HTN, HLP, family history of CAD, obesity. Risk Scores: Score 0 - 3: 2.5% MACE over next 6 weeks - Discharge Home Score 4 - 6: 20.3% MACE over next 6 weeks - Admit for Clinical Observation Score 7 - 10: 72.7% MACE over next 6 weeks - Early Invasive Strategies Allergies: Allergies: Allergies Coded Allergies Type Severity Reaction Last Updated Verified oxycodone Allergy Intermediate 02/25/15 Yes Physical Exam: PE: Constitutional: Well developed, well nourished, no acute distress, non-toxic appearance. [] HENT: Normocephalic, atraumatic, bilateral external ears normal, oropharynx moist, no oral exudates, nose normal. [] Eyes: PERRLA, EOMI, conjunctiva normal, no discharge. [] Neck: Normal range of motion, no tenderness, supple, no stridor. [] Cardiovascular:Heart rate regular rhythm, no murmur [] Lungs & Thorax: Crackles at both bases otherwise clear to auscultation [] Abdomen: Bowel sounds normal, soft, no tenderness, no masses, no pulsatile masses. [] Skin: Warm, dry, no erythema, no rash. [] Back: No tenderness, no CVA tenderness. [] Extremities: No tenderness, no cyanosis, no clubbing, ROM intact, no edema. [] Neurologic: Alert and oriented X 3, normal motor function, normal sensory function, no focal deficits noted. Examination of the right lower extremity was limited secondary to pain. [] Psychologic: Affect flat, judgement normal, mood depressed. [] Current Patient Data: Vital Signs: Vital Signs Date Time Temp Pulse Resp B/P (MAP) Pulse Ox O2 Delivery O2 Flow Rate FiO2 05/17/20 18:50 98.0 91 20 139/79 (99) 98 Room Air 98.0 EKG: EKG: Heart rate 76 bpm, normal sinus rhythm, PACs, normal axis, normal intervals, normal ECG [] Radiology/Procedures: Radiology/Procedures: [] Course & Med Decision Making: Course & Med Decision Making Pertinent Labs and Imaging studies reviewed. (See chart for details) 2348-patient was seen and reevaluated multiple occasions throughout her hospitalization. Patient's chest pain resolved with a GI cocktail. Her work-up for cardiac causes of chest pain was negative. In addition she reports that her pain in her legs is much improved with the medications I gave her specifically gabapentin. Today I discussed with her the need for follow-up, treatment plan and reasons to return. [] Dragon Disclaimer: Dragon Disclaimer: This electronic medical record was generated, in whole or in part, using a voice recognition dictation system. 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
[2020-05-17 19:38] LABS: BASO # 0.1 x10^3/uL (0.0-0.2); BASO % 1 % (0-3); EOS # 0.3 x10^3/uL (0.0-0.7); EOS % 4 % (0-3); HEMOGLOBIN 13.7 g/dL (12.0-15.5); LYMPH # 2.2 x10^3/uL (1.0-4.8); LYMPH % 27 % (24-48); MEAN CORPUSCULAR HEMOGLOBIN 31 pg (25-35); MEAN CORPUSCULAR HGB CONC 33 g/dL (31-37); MEAN CORPUSCULAR VOLUME 95 fL (79-100); MONO % 12 % (0-9); NEUT # 4.6 x10^3/uL (1.8-7.7); NEUT % 56 % (31-73); PLATELET COUNT 142 x10^3/uL (140-400); RED CELL DISTRIBUTION WIDTH 13.6 % (11.5-14.5); WHITE BLOOD COUNT 8.2 x10^3/uL (4.0-11.0)
[2020-05-17 19:50] LABS: CREATININE 0.9 mg/dL (0.6-1.0); GFR 71.7
[2020-05-17 19:56] LABS: BILIRUBIN,URINE NEGATIVE (NEG); CLARITY,URINE CLEAR; COLOR,URINE YELLOW; NITRITE,URINE NEGATIVE (NEG); PH,URINE 5.5 (<5.0-8.0); PROTEIN,URINE NEGATIVE (NEG-TRACE)
[2020-05-17 19:56] LABS: ALBUMIN/GLOBULIN RATIO 0.9 (1.0-1.7); TOTAL BILIRUBIN 0.4 mg/dL (0.2-1.0); TOTAL PROTEIN 6.4 g/dL (6.4-8.2)
--- NOTE | 2020-05-17 20:18 | RAD ---
CHEST PA LATERAL INDICATION: Reason: CHEST PAIN/WAITING ON EKG AND LABS / Spl. Instructions: / History: . COMPARISON STUDY: 01/15/2018. FINDINGS: Lungs: Normal lung volume. No pulmonary mass or consolidation. The tracheobronchial tree and hilar structures are normal. Pleura: No pleural effusion or pneumothorax. Heart and Mediastinum: The cardiomediastinal silhouette is normal. The great vessels of the thorax are normal. Bones and Soft Tissues: Degenerative changes of the spine. IMPRESSION: No acute cardiopulmonary process. Electronically signed by: Matt De La Fuente MD (05/17/2020 8:15 PM) [facility]
[2020-05-17 20:37] LABS: BACTERIA,URINE FEW /HPF (0-FEW); RBC,URINE 0 /HPF (0-2); SQUAMOUS EPITHELIAL CELL,UR MOD /LPF; WBC,URINE 20-40 /HPF (0-4)
[2020-05-17] MEDS ORDERED: GABA300C18 PO (23:47)
[2020-05-17 23:49] VITALS: BP 122/61
--- NOTE | 2020-05-18 07:16 | EKG ---
[facility] [address] [place] [address] Test Date: 2020-05-17 Test Time: 19:29:18 Pat Name: JENNIE GARZA Department: Room: Gender: F Director Of Orthopedics: : [id number] Requested By: SRINIVAS OCHOA Order Number: [id number] Reading MD: Measurements Intervals [place] Rate: 76 P: 54 CO: 160 QRS: 24 QRSD: 86 T: 49 QT: 364 QTc: 414 Interpretive Statements SINUS RHYTHM ATRIAL PREMATURE COMPLEX(ES) NO SPECIFIC ECG ABNORMALITIES RI6.02 No previous ECG available for comparison
== END 2020-05-18 | disposition home or self-care (01) ==
LOC: ER 18:30
DX: M54.17 Radiculopathy, lumbosacral region (principal); K21.9 Gastro-esophageal reflux disease without esophagitis; R07.89 Other chest pain; G62.9 Polyneuropathy, unspecified; F41.9 Anxiety disorder, unspecified; M19.90 Unspecified osteoarthritis, unspecified site; J44.9 Chronic obstructive pulmonary disease, unspecified; E78.00 Pure hypercholesterolemia, unspecified; I25.2 Old myocardial infarction; Z90.89 Acquired absence of other organs; Z90.710 Acquired absence of both cervix and uterus; Z98.890 Other specified postprocedural states; Z88.5 Allergy status to narcotic agent
CPT/HCPCS: 36415; 71046; 80053; 81001; 84484; 85025; 87086; 93005; 99285

== ENCOUNTER → 2020-06-12 | Outpatient (CLI) | payer MEDICARE, MEDICAID ==
[2020-05-17 23:49] VITALS: BP 122/61
[~2020-06-12] MED LIST changes: +GABA300C18 PO
--- NOTE | 2020-06-12 14:19 | RAD ---
EXAM: Right ankle, 3 views. HISTORY: Pain. COMPARISON: None. FINDINGS: 3 views of the right ankle are obtained. There is a chronic nonunited fracture inferior to the medial malleolus. There is no acute fracture, dislocation or subluxation. There is enthesopathy at the Achilles tendon insertion. There is a tiny plantar spur. There is degenerative spurring involving the midfoot. There are vascular and soft tissue calcifications. IMPRESSION: No acute osseous finding. Midfoot osteoarthritis. Electronically signed by: Shy Daniels MD (06/12/2020 2:16 PM) [id number]
== END | disposition home or self-care (01) ==
LOC: RAD 13:14
PROVIDERS: ATTEND Internal Medicine
DX: S82.51XK Displaced fracture of medial malleolus of right tibia, subsequent encounter for closed fracture with nonunion (principal); X58.XXXD Exposure to other specified factors, subsequent encounter; M17.11 Unilateral primary osteoarthritis, right knee; M76.61 Achilles tendinitis, right leg
CPT/HCPCS: 73600

== ENCOUNTER → 2021-09-01 | Outpatient (CLI) | payer MEDICARE, MEDICAID ==
[~2021-09-01] MED LIST changes: -CITA10TA4 PO; +CITA10TA5 PO; +DICY20TA PO; -DICY20TA3 PO; +IOHEXOL 300 MG/ML 100ML VIAL. IV ONE
[2021-09-01 14:43] LABS: CREATININE 1.1 mg/dL (0.6-1.0); GFR 56.6
--- NOTE | 2021-09-02 10:38 | RAD ---
CT neck with and without contrast dated 09/01/2021. No comparison available. CLINICAL INDICATION: Left neck mass. TECHNIQUE: Contiguous axial imaging of the neck performed with and without the administration of 65 cc Omnipaque 300. One or more of the following individualized dose reduction techniques were utilized for this examinat ion: 1. Automated exposure control 2. Adjustment of the mA and/or kV according to patient size 3. Use of iterative reconstruction technique. FINDINGS: A marker was placed over the left neck mid the level of the left submandibular gland. The submandibul ar glands are symmetric. There are couple small calcifications on the left. No definite calcification along the left Anton's duct. No discrete mass. The parotid glands are symmetric. No cervical chain lymphadenopathy. Left lobe thyroid gland is heterogeneous with internal calcifications. Low-density nodule of the left lobe thyroid measuring about 12 mm. The right lobe thyroid gland is not identified and may be surgically absent or hypoplastic. There are atherosclerotic calcifications of the bilateral carotid bifurcation. Moderate grade narrowi ng of the proximal left ICA with mild narrowing of the proximal right ICA. Limited images of the lung apices are clear. Limited imaged portions the brain parenchyma unremarkable. Paranasal sinuses and m astoid air cells are clear. IMPRESSION: 1. No evidence of soft tissue mass deep to the palpable lump. The area of palpable abnormality may co rrelate with the left submandibular gland. There are a few nonspecific calcifications within the left submandibular gland with no evidence of submandibular gland mass. 2. Heterogeneous nodular appearance of the left lobe thyroid gland, possibly related to goiter. The r ight lobe is not identified and may be surgically absent or atrophic. Indicated, thyroid ultrasound b millie evaluate. 3. There are atherosclerotic calcifications of the bilateral carotid bifurcation. Moderate grade narr owing of the proximal left ICA and mild narrowing of the proximal right ICA. Carotid Doppler could be tter evaluate. Electronically signed by: Jus Contreras MD (09/02/2021 10:36 AM) [id number]
== END ==
LOC: CT 13:30
PROVIDERS: ATTEND Family Medicine
DX: R22.1 Localized swelling, mass and lump, neck (principal); I65.23 Occlusion and stenosis of bilateral carotid arteries; E04.1 Nontoxic single thyroid nodule
CPT/HCPCS: 36415; 70492; 82565; 84520; Q9967

== ENCOUNTER → 2021-09-22 | Outpatient (CLI) | payer MEDICARE, MEDICAID ==
[~2021-09-22] MED LIST changes: -IOHEXOL 300 MG/ML 100ML VIAL. IV ONE
--- NOTE | 2021-09-22 10:22 | RAD ---
EXAM: Carotid Doppler sonogram. HISTORY: Atherosclerosis. Carotid stenosis. TECHNIQUE: Morales scale and color Doppler sonographic evaluation of the neck with spectral waveform adama lysis was performed and static images are submitted for review. FINDINGS: There is mild atherosclerotic plaque involving the carotid bifurcations. The peak systolic velocity within the right common carotid artery is 75 cm/sec. The peak systolic kali ocity within the right internal carotid artery is 95 cm/sec and the end diastolic velocity within the right internal carotid artery is 24 cm/sec. The right ICA/CCA ratio is 1.3. The peak systolic velocity within the left common carotid artery is 105 cm/sec. The peak systolic kali ocity within the left internal carotid artery is 123 cm/sec and the end diastolic velocity within the left internal carotid artery is 28 cm/sec. The left ICA/CCA ratio is 1.4. There is normal antegrade flow within both vertebral arteries. IMPRESSION: Doppler findings consistent with less than 50 percent stenosis involving the internal car otid arteries. PQRS Compliance Statement - Stenosis calculations for CT, MR and conventional angiography are based u cristopher measurement of the distal ICA diameter in accordance with the NASCET methodology. Stenosis calcu lations for carotid ultrasound studies are derived from validated velocity criteria which are known t o correlate with the NASCET methodology. Electronically signed by: Shy Daniels MD (09/22/2021 10:19 AM) [id number]
--- NOTE | 2021-09-22 11:31 | RAD ---
EXAM: Thyroid sonogram. HISTORY: Thyroid nodule. TECHNIQUE: Sonographic imaging of the thyroid was performed. COMPARISON: None. FINDINGS: There is no measurable right thyroid parenchyma. The left thyroid lobe measures 4.5 x 1.3 x 1.7 cm. There is a peripherally calcified nodule within the inferior left thyroid lobe measuring 1.5 x 1.4 x 1.3 cm. There is a solid isoechoic nodule within the mid left thyroid lobe measuring 1.2 x 1 .0 x 2.9 cm. There is a 6 x 4 x 4 mm hypoechoic nodule within the medial left thyroid lobe. There is a 1.5 x 1.5 x 1.1 cm isoechoic nodule with slight hypoechoic rim within the left aspect of the thyroi d isthmus. The thyroid parenchyma is diffusely heterogeneous. IMPRESSION: 1. 1.5 cm isoechoic nodule within the right aspect of the thyroid isthmus. TI-RADS Category 3. Sonogr aphic follow up is recommended. 2. 1.2 cm isoechoic nodule within the mid left thyroid lobe. TI-RADS Category 3. 3. 6 mm hypoechoic nodule within the medial left thyroid lobe. TI-RADS Category 4. 4. 1.5 cm peripherally calcified nodule within the inferior left thyroid lobe.TI-RADS Category 5. Fin e needle aspiration is typically recommended for Category 5 nodules of this size; however, this will likely be limited due to the degree of peripheral calcification. 5. No measurable right thyroid parenchyma. Electronically signed by: Shy Daniels MD (09/22/2021 11:28 AM) [id number]
== END ==
LOC: US 09:50
PROVIDERS: ATTEND Family Medicine
DX: E04.2 Nontoxic multinodular goiter (principal); I65.23 Occlusion and stenosis of bilateral carotid arteries
CPT/HCPCS: 76536; 93880